=== PATIENT | male | born 1975 | race Hispanic/Latino ===

== ENCOUNTER 2019-04-04 15:07 | Emergency (ER) | payer OTHER ==
[2019-04-04] MEDS ORDERED: NA CHLORIDE 0.9% 1,000 ML ONE ×2 (15:39→15:46)
[2019-04-04] MEDS ORDERED: HYDROMORPHONE HCL 1 MG/ML INJ ONE ×2 (15:39→16:04)
[2019-04-04] MEDS ORDERED: ONDANSETRON 4 MG/2 ML VIAL ONE ×2 (15:39→15:46)
[2019-04-04] MEDS ORDERED: MORPHINE 4 MG/ML SYR ONE (15:46)
[2019-04-04 15:58] LABS: Absolute Lymphocytes (CBC) 2.8 K/uL (0.7-4.9); Basophils % 0.9 % (0-1.3); Hematocrit 41.8 % (39.6-49.0); Lymphocytes % 33.5 % (15.3-44.8); MPV 10.2 fL (7.6-11.3); RBC Red Blood Cell Count 4.73 M/uL (4.33-5.43)
[2019-04-04] MEDS ORDERED: KETOROLAC 30 MG/ML INJ ONE (16:04)
[2019-04-04 16:13] LABS: BUN Blood Urea Nitrogen 12 mg/dL (7-18); Bicarbonate 26 mmol/L (21-32); Glucose Level 120 mg/dL (74-106); Potassium 3.9 mmol/L (3.5-5.1); Sodium Level 140 mmol/L (136-145)
--- NOTE | 2019-04-04 16:58 | RAD REPORT ---
EXAM DESCRIPTION: US - Scrotum Testicles - 04/04/2019 4:34 pm CLINICAL HISTORY: Scrotal pain COMPARISON: None. FINDINGS: No intratesticular mass. Normal blood flow identified in each testicle. No suspicious epid idymis finding. Bilateral hydroceles are present. Small bilateral varicoceles are suspected. No herni a or inguinal abnormality seen. IMPRESSION: Bilateral hydroceles and small varicoceles are suspected. No testicular abnormalities.
--- NOTE | 2019-04-04 17:10 | RAD REPORT ---
EXAM DESCRIPTION: CT - Abdomen Pelvis W Contrast - 04/04/2019 4:52 pm CLINICAL HISTORY: abd pain COMPARISON: CT December 2008, testicular ultrasound same date TECHNIQUE: Biphasic, helical CT imaging of the abdomen and pelvis was performed following 100 ml non -ionic IV contrast. No oral contrast. All CT scans are performed using dose optimization technique as appropriate and may include automated exposure control or mA/KV adjustment according to patient size. FINDINGS: No suspicious findings in the lung bases. Liver is mildly enlarged. No focal liver lesions seen. There is a prominent nodular contour to the li arnel capsule. Contrast opacification pattern was not optimal. Spleen is upper normal in size with no focal abnormality. No pancreatic abnormality. Cholecystectomy clips are present with no biliary tree dilatation. Symmetric renal function is seen with no hydronephrosis or suspicious renal mass. No pyelonephritis o r acute parenchymal process. Urinary bladder is contracted limiting assessment. No prostate abnormali ty seen. No adrenal abnormalities. No dilated bowel loops or bowel wall thickening. No free air, free fluid or inflammatory stranding. No mass or bulky lymphadenopathy. Patient has bilateral fat filled inguinal hernias. No suspicious bony findings. IMPRESSION: Cirrhosis or diffuse hepatic parenchymal disease of the liver new from 2008 comparison. No focal liver lesions identified. Contrast opacification is not optimal. No ascites, lymphadenopathy or other acute abdominal or pelvic finding seen.
[2019-04-04] MEDS ORDERED: MEPERIDINE HCL 50 MG/ML ONE (17:47)
[2019-04-04] MEDS ORDERED: CIPROFLOXACIN HCL 500 MG TAB ONE (17:47)
--- NOTE | 2019-04-04 19:47 | EDPHYS ---
Physician Documentation [facility] Name: Cesar Busby Age: 43 yrs Sex: Male : 1975 Arrival Date: 04/04/2019 Time: 15:11 Bed 6 Private MD: Alvarez Linares ED Physician Alexander Pop HPI: 04/04 16:09 This 43 yrs old Male presents to ER via Ambulatory with complaints of jr8 Testicular Pain. 16:09 Onset: The symptoms/episode began/occurred acutely, 2 week(s) ago. Modifying factors: jr8 The symptoms are alleviated by nothing, the symptoms are aggravated by sexual intercourse. Associated signs and symptoms: Pertinent positives: hematuria, blood in semen and flank pain. Severity of symptoms: At their worst the symptoms were moderate. The patient has not experienced similar symptoms in the past. The patient has not recently seen a physician. Patient stated that he has had on/off flank and testicular pain along with perineal pain for two weeks. Getting worse . Historical: - Allergies: 15:38 No Known Allergies; ss - Home Meds: 15:38 metformin 1,000 mg Oral tab 1 tab 2 times per day [Active]; sertraline 100 mg oral tab ss 1 tab BID [Active]; [place] 10-325 mg Oral tab 1 tab every 4-6 hours [Active]; gabapentin 600 mg oral tab 1 tab 3 times per day [Active]; cyclobenzaprine 10 mg Oral tab 1 tab 3 times per day [Active]; - PMHx: 15:38 Diabetes - IDDM; Bipolar disorder; ss - PSHx: 15:38 Cholecystectomy; ss - Immunization history:: Adult Immunizations up to date. - Social history:: Smoking status: Patient uses tobacco products, denies chronic smoking, but will smoke occasionally. - Ebola Screening: : Patient denies exposure to infectious person Patient denies travel to an Ebola-affected area in the 21 days before illness onset. ROS: 16:09 Eyes: Negative for injury, pain, redness, and discharge, ENT: Negative for injury, jr8 pain, and discharge, Neck: Negative for injury, pain, and swelling, Cardiovascular: Negative for chest pain, palpitations, and edema, Respiratory: Negative for shortness of breath, cough, wheezing, and pleuritic chest pain, MS/Extremity: Negative for injury and deformity, Skin: Negative for injury, rash, and discoloration, Neuro: Negative for headache, weakness, numbness, tingling, and seizure. 16:09 Abdomen/GI: Positive for abdominal pain, nausea, Negative for vomiting, diarrhea, constipation, abdominal cramps. 16:09 Back: Positive for flank pain, on the left. 16:09 : Positive for hematuria, testicular pain Exam: 16:09 Eyes: Pupils equal round and reactive to light, extra-ocular motions intact. Lids and jr8 lashes normal. Conjunctiva and sclera are non-icteric and not injected. Cornea within normal limits. Periorbital areas with no swelling, redness, or edema. ENT: Nares patent. No nasal discharge, no septal abnormalities noted. Tympanic membranes are normal and external auditory canals are clear. Oropharynx with no redness, swelling, or masses, exudates, or evidence of obstruction, uvula midline. Mucous membranes moist. Neck: Trachea midline, no thyromegaly or masses palpated, and no cervical lymphadenopathy. Supple, full range of motion without nuchal rigidity, or vertebral point tenderness. No Meningismus. Cardiovascular: Regular rate and rhythm with a normal S1 and S2. No gallops, murmurs, or rubs. Normal PMI, no JVD. No pulse deficits. Respiratory: Lungs have equal breath sounds bilaterally, clear to auscultation and percussion. No rales, rhonchi or wheezes noted. No increased work of breathing, no retractions or nasal flaring. Back: No spinal tenderness. No costovertebral tenderness. Full range of motion. Skin: Warm, dry with normal turgor. Normal color with no rashes, no lesions, and no evidence of cellulitis. MS/ Extremity: Pulses equal, no cyanosis. Neurovascular intact. Full, normal range of motion. Neuro: Awake and alert, GCS 15, oriented to person, place, time, and situation. Cranial nerves II-XII grossly intact. Motor strength 5/5 in all extremities. Sensory grossly intact. Cerebellar exam normal. Normal gait. 16:09 Abdomen/GI: Inspection: obese Bowel sounds: active, all quadrants, Palpation: abdomen is soft and non-tender, in all quadrants, Rectal exam: Prostate: tender, rectal tone normal, Stool: normal, hemorrhoid(s), are not appreciated, mass, is not appreciated, swelling, is not appreciated, tenderness, is not appreciated, the exam is chaperoned by the nurse, Indicators: McBurney's point is not tender, Vines's sign is negative, Rovsing's sign is negative, Liver: tenderness, is not appreciated. 16:09 : Male external genitalia: tenderness, of the left testicle is noted, that is mild. Vital Signs: 15:38 Resp 23; Weight 177.81 kg; Height 6 ft. 0 in. (182.88 cm); Pain 9/10; ss 17:15 BP 141 / 84; Pulse 71; Resp 17; Pulse Ox 100% on R/A; Pain 7/10; hb 15:38 Body Mass Index 53.16 (177.81 kg, 182.88 cm) ss MDM: 15:23 Patient medically screened. jr8 17:33 Data reviewed: vital signs, nurses notes, lab test result(s), radiologic studies, CT jr8 scan. Data interpreted: Pulse oximetry: on room air is 100 %. Interpretation: normal. Counseling: I had a detailed discussion with the patient and/or guardian regarding: the historical points, exam findings, and any diagnostic results supporting the discharge/admit diagnosis, lab results, radiology results, the need for outpatient follow up, a family practitioner, to return to the emergency department if symptoms worsen or persist or if there are any questions or concerns that arise at home. 04/04 15:32 Order name: IV Saline Lock; Complete Time: 15:37 jr8 04/04 15:32 Order name: Labs collected and sent; Complete Time: 15:37 jr8 Administered Medications: 15:45 Drug: Zofran 4 mg Route: IVP; Site: right antecubital; hb 16:06 Follow up: Response: No adverse reaction hb 15:46 Drug: Dilaudid 1 mg Route: IVP; Site: right antecubital; hb 16:05 Follow up: Response: No adverse reaction; Pain is unchanged, physician notified; RASS: hb Restless (+1) 15:46 Drug: NS 0.9% 1000 ml Route: IV; Rate: 1000 ml; Site: right antecubital; hb 17:41 Follow up: Response: No adverse reaction; IV Status: Completed infusion; IV Intake: hb 1000ml 16:57 Drug: Dilaudid 2 mg Route: IVP; Site: right antecubital; hb 17:30 Follow up: Response: No adverse reaction; Pain is decreased; RASS: Alert and Calm (0) hb 16:57 Drug: TORadol - Ketorolac 15 mg Route: IVP; Site: right antecubital; hb 17:30 Follow up: Response: No adverse reaction; Pain is decreased hb 18:06 Drug: Cipro 500 mg Route: PO; hb 18:06 Follow up: Response: Medication administered at discharge. hb 18:06 Drug: Demerol 50 mg Route: IVP; Site: right antecubital; hb 18:06 Follow up: Response: Medication administered at discharge. hb Disposition: 04/05 07:25 Co-signature as Attending Physician, Alexander Pop MD I agree with the assessment and kdr plan of care. Disposition: 04/04/19 17:34 Discharged to Home. Impression: Acute prostatitis. - Condition is Stable. - Discharge Instructions: Prostatitis. - Prescriptions for Cipro 500 mg Oral Tablet - take 1 tablet by ORAL route every 12 hours for 14 days; 28 tablet. Ibuprofen 800 mg Oral Tablet - take 1 tablet by ORAL route every 12 hours As needed take with food; 20 tablet. Tylenol- Codeine #3 300-30 mg Oral Tablet - take 2 tablets by ORAL route every 6 hours As needed; 20 tablet. - Medication Reconciliation Form, Thank You Letter, Antibiotic Education, Prescription Opioid Use, Work release form form. - Follow up: Alvarez Linares MD; When: 2 - 3 days; Reason: Recheck today's complaints, Continuance of care, Re-evaluation by your physician. - Problem is new. - Symptoms have improved. Signatures: Alexander Pop MD MD [facility] Sury Olson RN RN Deni Huang PA PA jr8 Brooke Griffith RN RN hb Corrections: (The following items were deleted from the chart) 04/04 18:09 17:34 04/04/2019 17:34 Discharged to Home. Impression: Acute prostatitis. Condition is hb Stable. Forms are Medication Reconciliation Form, Thank You Letter, Antibiotic Education, Prescription Opioid Use. Follow up: Alvarez Linares; When: 2 - 3 days; Reason: Recheck today's complaints, Continuance of care, Re-evaluation by your physician. Problem is new. Symptoms have improved. jr8
--- NOTE | 2019-04-04 19:49 | ER ---
Nurse's Notes [facility] Name: Cesar Busby Age: 43 yrs Sex: Male : 1975 Arrival Date: 04/04/2019 Time: 15:11 Bed 6 Private MD: Alvarez Linares Diagnosis: Acute prostatitis Presentation: 04/04 15:34 Presenting complaint: Patient states: pain to L testicle/ perineum that radiates up to ss L lower back x 2-3 weeks. Also reports that semen and urine have blood in it. Transition of care: patient was not received from another setting of care. Onset of symptoms was March 14, 2019. Risk Assessment: Do you want to hurt yourself or someone else? Patient reports no desire to harm self or others. Initial Sepsis Screen: Does the patient have a suspected source of infection? Yes: Other: possible prostatitis. Care prior to arrival: None. 15:34 Method Of Arrival: Ambulatory ss 15:34 Acuity: ALLY 3 ss Historical: - Allergies: 15:38 No Known Allergies; ss - Home Meds: 15:38 metformin 1,000 mg Oral tab 1 tab 2 times per day [Active]; sertraline 100 mg oral tab ss 1 tab BID [Active]; Success 10-325 mg Oral tab 1 tab every 4-6 hours [Active]; gabapentin 600 mg oral tab 1 tab 3 times per day [Active]; cyclobenzaprine 10 mg Oral tab 1 tab 3 times per day [Active]; - PMHx: 15:38 Diabetes - IDDM; Bipolar disorder; ss - PSHx: 15:38 Cholecystectomy; ss - Immunization history:: Adult Immunizations up to date. - Social history:: Smoking status: Patient uses tobacco products, denies chronic smoking, but will smoke occasionally. - Ebola Screening: : Patient denies exposure to infectious person Patient denies travel to an Ebola-affected area in the 21 days before illness onset. Screenin:46 Abuse screen: Denies threats or abuse. Denies injuries from another. Nutritional hb screening: No deficits noted. Tuberculosis screening: No symptoms or risk factors identified. Fall Risk None identified. Assessment: 15:46 General: Appears in no apparent distress. uncomfortable, Behavior is cooperative, hb restless. Pain: Pain currently is 9 out of 10 on a pain scale. Neuro: Level of Consciousness is awake, alert, obeys commands, Oriented to person, place, time, situation. Cardiovascular: Heart tones S1 S2 present Capillary refill < 3 seconds Patient's skin is warm and dry. Respiratory: Airway is patent Respiratory effort is even, unlabored, Respiratory pattern is regular, symmetrical, Breath sounds are clear bilaterally. GI: No signs and/or symptoms were reported involving the gastrointestinal system. : Reports testicular pain that radiates to lower abdomen. EENT: No signs and/or symptoms were reported regarding the EENT system. Derm: Skin is intact, is healthy with good turgor, Skin is pink, warm \T\ dry. Musculoskeletal: No signs and/or symptoms reported regarding the musculoskeletal system. 16:06 Reassessment: Pt restless, moaning, reports pain unchanged. NNAMDI Cheema notified, orders hb given. 16:07 Reassessment: Pt to radiology. hb 16:57 Reassessment: Pt returned from CT, pain medication administered as ordered. VSS. Family hb remains at bedside. 17:25 Reassessment: Patient appears in no apparent distress at this time. Patient and/or hb family updated on plan of care and expected duration. Pain level reassessed. Patient is alert, oriented x 3, equal unlabored respirations, skin warm/dry/pink. Vital Signs: 15:38 Resp 23; Weight 177.81 kg; Height 6 ft. 0 in. (182.88 cm); Pain 9/10; ss 17:15 BP 141 / 84; Pulse 71; Resp 17; Pulse Ox 100% on R/A; Pain 7/10; hb 15:38 Body Mass Index 53.16 (177.81 kg, 182.88 cm) ED Course: 15:11 Patient arrived in ED. mr 15:12 Alvarez Linares MD is Private Physician. mr 15:22 Deni Huang [facility]. jr8 15:23 Alexander Pop MD is Attending Physician. jr8 15:36 Triage completed. ss 15:37 Initial lab(s) drawn, by me, sent to lab. Inserted saline lock: 22 gauge in right jb1 antecubital area, using aseptic technique. Blood collected. 15:38 Arm band placed on right wrist. ss 15:46 Patient has correct armband on for positive identification. Placed in gown. Bed in low hb position. Call light in reach. Side rails up X 1. 15:50 Radiology exam delayed due to lab results not completed at this time. (BUN/Creatinine). sj 15:50 Brooke Griffith, RN is Primary Nurse. hb 17:34 Alvarez Linares MD is Referral Physician. jr8 17:41 Nurse Practitioner and/or Physician Aircraft Technician to see patient. hb 18:06 No provider procedures requiring assistance completed. IV discontinued, intact, hb bleeding controlled, No redness/swelling at site. Pressure dressing applied. Administered Medications: 15:45 Drug: Zofran 4 mg Route: IVP; Site: right antecubital; hb 16:06 Follow up: Response: No adverse reaction hb 15:46 Drug: Dilaudid 1 mg Route: IVP; Site: right antecubital; hb 16:05 Follow up: Response: No adverse reaction; Pain is unchanged, physician notified; RASS: hb Restless (+1) 15:46 Drug: NS 0.9% 1000 ml Route: IV; Rate: 1000 ml; Site: right antecubital; hb 17:41 Follow up: Response: No adverse reaction; IV Status: Completed infusion; IV Intake: hb 1000ml 16:57 Drug: Dilaudid 2 mg Route: IVP; Site: right antecubital; hb 17:30 Follow up: Response: No adverse reaction; Pain is decreased; RASS: Alert and Calm (0) hb 16:57 Drug: TORadol - Ketorolac 15 mg Route: IVP; Site: right antecubital; hb 17:30 Follow up: Response: No adverse reaction; Pain is decreased hb 18:06 Drug: Cipro 500 mg Route: PO; hb 18:06 Follow up: Response: Medication administered at discharge. hb 18:06 Drug: Demerol 50 mg Route: IVP; Site: right antecubital; hb 18:06 Follow up: Response: Medication administered at discharge. hb Intake: 17:41 IV: 1000ml; Total: 1000ml. hb Outcome: 17:34 Discharge ordered by . jr8 18:06 Discharged to home ambulatory, with family. hb 18:06 Condition: stable 18:06 Discharge instructions given to patient, family, Instructed on discharge instructions, follow up and referral plans. medication usage, Demonstrated understanding of instructions, follow-up care, medications, Prescriptions given X 2. 18:09 Patient left the ED. hb Signatures: Kelvin Grimes jb1 Joshua, Hamida mr Felix, Sury John RN RN Deni Huang PA PA jr8 Brooke Griffith RN RN hb Corrections: (The following items were deleted from the chart) 17:26 17:15 BP 141 / 84; Pulse 71bpm; Resp 17bpm; Pulse Ox 95% RA; Pain 7/10; hb hb
== END 2019-04-04 18:09 | disposition home or self-care (01) ==
LOC: ER 15:07
DX: N41.0 Acute prostatitis (principal); E11.9 Type 2 diabetes mellitus without complications; F31.89 Other bipolar disorder
CPT/HCPCS: 96361; 85025; 80048; 36415; 74177; 76870; 96375; 96374; 99284; Q9967; J2175; J1170 ×2; J7030 ×2; J2405 ×2

== ENCOUNTER 2019-04-13 21:51 | Emergency (ER) | payer OTHER ==
--- OUTSIDE RECORDS SUMMARY | 2019-04-13 21:57 | XMS REPORT | Continuity of Care Document ---
:1975 Author Organization [employer] Care Team Providers Name Role Phone [email or web address] Unavailable Unavailable Problems Problem Status Onset Classification Date Comments Source Date Reported Other specified 11/15/2018 [place] diseases of [place] gallbladder GALLBLADDER/SENT Active [place] BY MD 8 [place] ABDOMINAL PAIN Active [place] [facility] [place] ABD PAIN Active [facility] [id number] [facility] PANCREATITIS,HEPA Active [facility] TOSPLENOMEGALY,AB 8 [facility] D PAIN Center Acute abdominal Active Problem 03/24/2019 Medical pain (finding) Group, [place] Diabetes mellitus Active Problem 03/24/2019 Medical (disorder) Group, [place] Morbid obesity Active Problem 03/24/2019 Medical (disorder) Group, [place] Preoperative Active Problem 03/24/2019 Medical state (finding) Group, [place] Morbid (severe) 11/15/2018 [place] obesity due to Land excess calories Obstructive sleep 11/15/2018 [place] apnea (adult) Land (pediatric) Body mass index 11/15/2018 [place] (BMI) 50-59.9 , Land adult Unspecified 11/15/2018 [place] cirrhosis of Land liver Chronic 11/15/2018 [place] cholecystitis Land Type 2 diabetes 11/15/2018 [place] mellitus without Land complications Essential 11/15/2018 [place] (primary) Land hypertension Dehydration 11/15/2018 [place] Hepatomegaly, not 11/15/2018 [place] elsewhere 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 Other chronic 11/15/2018 [place] pain [place] Major depressive 11/15/2018 [place] disorder, single Land episode, unspecified Fatty (change of) 11/15/2018 [place] liver, not Land elsewhere classified Nicotine 11/15/2018 [place] dependence, Land cigarettes, uncomplicated Portal 10/27/2018 [place] hypertension Land Alcoholic 10/27/2018 [place] cirrhosis of [place] liver without ascites Alcohol abuse, 10/27/2018 [place] uncomplicated 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 ACUTE Active [facility] PANCREATITIS Medical WITHOUT NECROSIS Center OR I HEPATOMEGALY WITH Active [facility] SPLENOMEGALY, NOT Medical ELSE Center UNSPECIFIED Active [facility] ABDOMINAL PAIN Medical Center Medications Medication Details Route Status Patient Ordering Order Source Instructions Provider Date NovoLOG FlexPen SUB-Q, Active TID-Before 2019 Medical Meals, 0 Group Refill(s) Acetaminophen 325 1 tab, PO, Q4H, Active MG / Hydrocodone PRN Pain, # 30 2019 Medical Bitartrate 10 MG tab, 0 Refill(s) Group Oral Tablet POLYETHYLENE 17 gm, PO, No Longer [place] GLYCOL 3350 142 Daily, X 15 day, Active 2017 [place] MG/ML Oral # 255 gm, 0 Solution Refill(s), [Miralax] Pharmacy: [facility] Lactulose 667 20 gm, 30 ml, Inactive [place] MG/ML Oral Route: PO, Drug 2017 [facility] Solution form: SYRP, ONCE, Dosing Weight 176, kg, Start date: 04/28/18 13:17:00 CDT, Stop date: 04/28/18 13:17:00 CDTNotes: (Same as:Chronulac) Acetaminophen 325 1 tab, Route: No Longer [place] MG / Hydrocodone PO, Drug Form: Active 2017 [place] Bitartrate 5 MG TAB, Dosing Oral Tablet Weight 176, kg, [[place] 5/325] Q6H, PRN Pain Score 4-6, Start date: 04/27/18 17:54:00 CDT, Duration: 30 day, Stop date: 05/27/18 17:53:00 CDTNotes: (Same as: [place] 325/5) Do not exceed 4gm/day of acetaminophen. Dilaudid 0.5 mg, 0.25 mL, No Longer Sugar Route: IV, Drug Active 2017 [place] form: INJ, Q4H, Dosing Weight 176, kg, PRN Pain Score 6-10, Start date: 04/27/18 14:02:00 CDT, Duration: 30 day, Stop date: 05/27/18 14:01:00 CDTNotes: Same as Dilaudid Lactulose 667 20 gm, 30 mL, Inactive [place] MG/ML Oral Route: PO, Drug 2017 [place] Solution form: SYRP, ONCE, Dosing Weight 176, kg, Start date: 04/27/18 10:29:00 CDT, Stop date: 04/27/18 10:29:00 CDTNotes: (Same as:Chronulac) D5W 1/2NS 1,000 1,000 mL, Rate: No Longer Sugar mL 100 ml/hr, Active 2017 [place] Infuse over: 10 hr, Route: IV, Dosing Weight 176 kg, Total Volume: 1,000, Start date: 04/27/18 7:11:00 CDT, Duration: 30 day, Stop date: 05/27/18 7:10:00 CDT, 3.04, m2 Methocarbamol 500 mg, 1 tab, No Longer Sugar Route: PO, Drug Active 2017 [place] form: TAB, TID, Dosing Weight 176, kg, PRN Muscle Spasms, Start date: 04/27/18 7:10:00 CDT, Duration: 30 day, Stop date: 05/27/18 7:09:00 CDTNotes: (Same as:Robaxin) Hydromorphone 0.5 mg, 0.25 mL, No Longer Sugar Route: IVP, Drug Active 2017 [place] form: INJ, ONCE, Dosing Weight 176, kg, PRN Pain Score 7-10, Priority: NOW, Start date: 04/27/18 0:29:00 CDTNotes: Same as Dilaudid Ketorolac 30 mg, Route: Inactive Sugar IVP, ONCE, 2017 [place] Dosing Weight 176, kg, PRN Pain Score 1-5, Start date: 04/26/18 20:00:00 CDT ondansetron Route: IV, Drug Inactive [place] (ANES) form: INJ, ONCE, 2017 [place] Stop date: 04/26/18 18:13:00 CDT glycopyrrolate Route: IV, Drug Inactive Sugar (ANES) form: INJ, ONCE, 2017 [place] Stop date: 04/26/18 18:13:00 CDT Ephedrine 5 mg, 1 mL, Inactive Sugar Route: IVP, 2017 [place] form: INJ, Q5Min, Dosing Weight 176, kg, PRN Low Blood Pressure, Start date: 04/26/18 18:13:00 CDT, Duration: 30 day, Stop date: 05/26/18 18:12:00 CDTNotes: final concentration 5 mg/mL Albuterol 0.83 2.49 mg, 3 mL, Inactive Sugar MG/ML Inhalant Route: 2017 [place] Solution form: SOLN, Q20Min, Dosing Weight 176, kg, PRN Wheezing, Priority: STAT, Start date: 04/26/18 18:13:00 CDT, Duration: 30 day, Stop date: 05/26/18 18:12:00 CDTNotes: SEE RT DOCUMENTATION (Same as: Proventil) Diphenhydramine 12.5 mg, 0.25 Inactive Sugar mL, Route: IVP2017 Drug form: INJ, Q6H, Dosing Weight 176, kg, PRN Itching, Start date: 04/26/18 18:13:00 CDT, Duration: 30 day, Stop date: 05/26/18 18:12:00 CDTNotes: (Same as: Benadryl) Racepinephrine 11.25 mg, 0.5 Inactive Sugar mL, Route: 2017 Drug Form: SOLN, Dosing Weight 176, kg, PRN, PRN Shortness of breath, Start date: 04/26/18 18:13:00 CDT, Duration: 30 day, Stop date: 05/26/18 18:12:00 CDTNotes: (racepinephrine *2.25% inh 0.5ml SOLN) (Same as:S2) Ondansetron 4 mg, 2 mL, Inactive Sugar Route: IVP, 2017 [place] form: INJ, ONCE, Dosing Weight 176, kg, PRN Nausea & Vomiting, Start date: 04/26/18 18:13:00 CDTNotes: (Same as: Zofran) MEDICATION WASTE Product Size: 4 mg Product Wasted: ___ mg Dexamethasone 4 mg, 1 mL, Inactive Sugar Route: IVP, Drug 2017 [place] form: INJ, ONCE, Dosing Weight 176, kg, PRN Nausea & Vomiting, Start date: 04/26/18 18:13:00 CDTNotes: Concentration: 4mg/ml Promethazine 6.25 mg, 0.25 Inactive Sugar mL, Route: IM, 2017 Drug form: INJ, ONCE, Dosing Weight 176, kg, PRN Nausea & Vomiting, Start date: 04/26/18 18:13:00 CDTNotes: Do not give IV push. (Same as: Phenergan) Glycopyrrolate 0.2 mg, 1 mL, Inactive Sugar Route: IVP, Drug 2017 [place] form: INJ, Q5Min, Dosing Weight 176, kg, PRN Bradycardia, Start date: 04/26/18 18:13:00 CDT, Duration: 3 doses or times, Stop date: Limited # of timesNotes: (Same as: Haris) Meperidine 12.5 mg, 0.25 Inactive Sugar mL, Route: IVP, 2017 Drug form: INJ, Q30Min, Dosing Weight 176, kg, PRN Other -See Comment, For shivering, Start date: 04/26/18 18:13:00 CDT, Duration: 2 doses or times, Stop date: Limited # of timesNotes: (Same as: Demerol) "Use Precaution in Elderly, Seizure disorders, and Renal impairment" Naloxone 0.4 mg, 1 mL, Inactive Sugar Route: IVP, Drug 2017 [place] form: INJ, Q2MIN, Dosing Weight 176, kg, PRN Narcotic Reversal, Start date: 04/26/18 18:13:00 CDT, Duration: 8 doses or times, Stop date: Limited # of timesNotes: Same as Narcan Hydromorphone 0.5 mg, 0.25 mL, Inactive Sugar Route: IVP, Drug 2017 [place] form: INJ, Q5Min, Dosing Weight 176, kg, PRN Pain Score 7-10, Start date: 04/26/18 18:13:00 CDT, Duration: 4 doses or times, Stop date: Limited # of timesNotes: Same as Dilaudid Fentanyl 25 microgram, Inactive Sugar 0.5 mL, Route: 2018 [place] IVP, Drug form: INJ, Q5Min, Dosing Weight 176, kg, PRN Pain Score 4-6, Priority: Routine, Start date: 04/26/18 18:13:00 CDT, Duration: 4 doses or times, Stop date: Limited # of timesNotes: (Same as: Sublimaze) Preservative free. Lorazepam 0.5 mg, 0.25 mL, Inactive Sugar Route: IVP, Drug 2017 [place] form: INJ, Q20Min, Dosing Weight 176, kg, PRN Anxiety, Start date: 04/26/18 18:13:00 CDT, Duration: 3 doses or times, Stop date: Limited # of timesNotes: (Same as: Ativan) Acetaminophen 1,000 mg, 2 tab, Inactive Sugar Route: PO, Drug 2017 [place] form: TAB, ONCE, Dosing Weight 176, kg, PRN Pain Score 1-3, Start date: 04/26/18 18:13:00 CDTNotes: Max acetaminophen 4000 mg/day (4 gm/day). (Same as: Tylenol Extra Strength) Hydralazine 10 mg, 0.5 mL, Inactive Sugar Route: IVP, Drug 2017 [place] form: INJ, Q20Min, Dosing Weight 176, kg, PRN Elevated BP, Start date: 04/26/18 18:13:00 CDT, Duration: 2 doses or times, Stop date: Limited # of timesNotes: (Same as: Apresoline) Push over 5 minutes neostigmine Route: IV, Drug Inactive [place] (ANES) form: INJ, ONCE, 2017 Stop date: 04/26/18 18:13:00 CDT Acetazolamide 250 mg, Route: Inactive Sugar IVP, ONCE, 2017 Dosing Weight 176, kg, Start date: 04/26/18 18:08:00 CDT, Stop date: 04/26/18 18:08:00 CDT tramadol 50 mg, 1 tab, No Longer Sugar hydrochloride 50 Route: PO, Drug Active 2017 [place] MG Oral Tablet form: TAB, Q4H, Dosing Weight 176, kg, PRN Pain Score 1-5, Start date: 04/26/18 18:07:00 CDT, Duration: 30 day, Stop date: 05/26/18 18:06:00 CDTNotes: Not to exceed 400mg/day. (Same As: Ultram) succinylcholine Route: IV, Drug Inactive [place] (ANES) form: INJ, ONCE, 2017 [place] Stop date: 04/26/18 17:14:00 CDT lidocaine (ANES) Route: IV, Drug Inactive Sugar form: INJ, ONCE, 2017 [place] Stop date: 04/26/18 17:14:00 CDT propofol (ANES) Route: IV, Drug Inactive Sugar form: INJ, ONCE, 2017 [place] Stop date: 04/26/18 17:14:00 CDT midazolam (ANES) Route: IV, Drug Inactive Sugar form: SOLN, 2017 ONCE, Stop date: 04/26/18 17:14:00 CDT dexamethasone Route: IV, Drug Inactive Sugar (ANES) form: INJ, ONCE, 2017 [place] Stop date: 04/26/18 17:14:00 CDT fentaNYL (ANES) Route: IV, Drug Inactive Sugar form: INJ, ONCE, 2017 [place] Stop date: 04/26/18 17:14:00 CDT ceFAZolin (ANES) Route: IV, Drug Inactive Sugar form: INJ, ONCE, 2017 [place] Stop date: 04/26/18 17:14:00 CDT rocuronium (ANES) Route: IV, Drug Inactive Sugar form: INJ, ONCE, 2017 [place] Stop date: 04/26/18 17:04:00 CDT Lactated Ringers Route: IV, Total Inactive Sugar Injection IV Volume: 1,000, 2017 [place] (ANES) 1000 mL Start date: 04/26/18 16:13:00 CDT, Stop date: 04/26/18 17:13:00 CDT Cefazolin 2 gm, Route: No Longer Sugar IVSCOTTY LAST, Active 2017 [facility] Dosing Weight 176, kg, Start date: 04/26/18 10:00:00 CDT, Duration: 1 doses or times, ABX Indication: Surgical ProphylaxisNotes : (Same As: Marie Donahue) MEDICATION WASTE Product Size: 1000 mg Product Wasted: ___ mg Dilaudid 0.5 mg, 0.25 mL, No Longer Sugar Route: IVP, Drug Active 2017 [place] form: INJ, Q2H, Dosing Weight 176, kg, PRN Pain Score 6-10, Start date: 04/26/18 8:57:00 CDT, Duration: 30 day, Stop date: 05/26/18 8:56:00 CDTNotes: Same as Dilaudid Dilaudid 0.5 mg, 0.25 mL, Inactive Sugar Route: IVP, Drug 2017 [place] form: INJ, Q4H, Dosing Weight 176, kg, PRN Pain Score 6-10, Priority: STAT, Start date: 04/26/18 3:02:00 CDT, Duration: 30 day, Stop date: 05/26/18 3:01:00 CDTNotes: Same as Dilaudid Dilaudid 0.5 mg, 0.25 mL, Inactive Sugar Route: IVP, Drug 2017 [place] form: INJ, ONCE, Dosing Weight 176, kg, Priority: NOW, Start date: 04/26/18 1:21:00 CDT, Stop date: 04/26/18 1:21:00 CDTNotes: Same as Dilaudid heparin 5,000 unit, 1 No Longer Sugar mL, Route: Active 2018 [place] SUB-Q, Drug form: INJ, Q8H, Dosing Weight 176.818, kg, Start date: 04/26/18 0:00:00 CDT, Duration: 30 day, Stop date: 05/25/18 16:00:00 CDTNotes: porcine heparin Morphine 2 mg, 1 mL, Inactive Sugar Route: IVP, Drug 2017 [place] form: SOLN, ONCE, Dosing Weight 176, kg, Priority: NOW, Start date: 04/25/18 22:45:00 CDT, Stop date: 04/25/18 22:45:00 CDT Acetaminophen 325 1 tab, Route: Inactive Sugar MG / Hydrocodone PO, Drug Form: 2018 [place] Bitartrate 10 MG TAB, Dosing Oral Tablet Weight 176, kg, [[place] 10/325] ONCE, Start date: 04/25/18 21:16:00 CDT, Stop date: 04/25/18 21:16:00 CDTNotes: Do not exceed 4gm/day of acetaminophen. (Same as: [place] 325/10) Insulin Lispro 8 unit, 0.08 mL, No Longer Sugar Route: SUB-Q, Active 2017 [place] Drug form: SOLN, TID-Before Meals, Dosing Weight 176, kg, PRN Blood Glucose Results, Start date: 04/25/18 21:15:00 CDT, Duration: 30 day, Stop date: 05/25/18 21:14:00 CDTNotes: (Same as: Humalog ) Roll in palms of hands gently; Do not shake `vigorously. "Single Patient Use Only " WASTE: F/P - Black; E - Municipal Trash Bin Stable for 28 days at room temperature. Expires in days from Da te Dextrose 50% 25 gm, 50 mL, No Longer Sugar Syringe Route: IVP, Drug Active 2017 [place] Form: INJ, Dosing Weight 176, kg, PRN, PRN Blood Glucose Results, Start date: 04/25/18 21:15:00 CDT, Duration: 30 day, Stop date: 05/25/18 21:14:00 CDT Glucagon 1 mg, Route: IM, No Longer Sugar Drug form: Active 2018 [place] PDR/INJ, PRN, Dosing Weight 176, kg, PRN Blood Glucose Results, Start date: 04/25/18 21:15:00 CDT, Duration: 30 day, Stop date: 05/25/18 21:14:00 CDT Zofran 4 mg, 2 mL, No Longer Sugar Route: IV, Drug Active 2017 [place] form: INJ, Q6H, Dosing Weight 176.818, kg, PRN as needed for nausea/vomiting, Start date: 04/25/18 17:13:00 CDT, Duration: 30 day, Stop date: 05/25/18 17:12:00 CDTNotes: (Same as: Zofran) MEDICATION WASTE Product Size: 4 mg Product Wasted: ___ mg Morphine 2 mg, 1 mL, No Longer Sugar Route: IV, Drug Active 2017 [place] form: SOLN, Q6H, Dosing Weight 176.818, kg, PRN Pain Score 6-10, Start date: 04/25/18 17:10:00 CDT, Duration: 30 day, Stop date: 05/25/18 17:09:00 CDT D5W 1/2NS 1,000 1,000 mL, Rate: No Longer Sugar mL 150 ml/hr, Active 2018 [place] Infuse over: 6.7 hr, Route: IV, Dosing Weight 176 kg, Total Volume: 1,000, Start date: 04/25/18 17:10:00 CDT, Duration: 30 day, Stop date: 05/25/18 17:10:00 CDT, 3.04, m2 lidocaine 2% 100 mg, 5 mL, Inactive Sugar Route: IV, Drug 2017 [place] Form: INJ, Dosing Weight 176.818, kg, ONCE, Start date: 04/25/18 15:47:00 CDT, Stop date: 04/25/18 15:47:00 CDTNotes: Syringe (Same as: Xylocaine) ketOROLAC 30 30 mg, 1 mL, Inactive Sugar mg/mL injectable Route: IVP, Drug 2017 [place] solution form: INJ, ONCE, Dosing Weight 176.818, kg, Priority: STAT, Start date: 04/25/18 14:21:00 CDT, Stop date: 04/25/18 14:21:00 CDTNotes: (Same as:Toradol) IV bolus must be given >15 seconds. Give IM administration slowly and deeply into the muscle. Not for use > 4 days MEDICATION WASTE Product Size: 30 mg Product Wasted: _0__ mg Dilaudid 1 mg, 0.5 mL, Inactive Sugar Route: IM, Drug 2017 [place] form: INJ, ONCE, Dosing Weight 176.818, kg, Priority: STAT, Start date: 04/25/18 12:55:00 CDT, Stop date: 04/25/18 12:55:00 CDTNotes: Same as Dilaudid Fentanyl 50 microgram, Inactive Sugar Route: IVP, 2018 [place] ONCE, Dosing Weight 176.818, kg, Priority: STAT, Start date: 04/25/18 12:33:00 CDT, Stop date: 04/25/18 12:33:00 CDT Morphine 4 mg, 1 mL, Inactive Sugar Route: IVP, Drug 2017 [place] form: SOLN, ONCE, Dosing Weight 176.818, kg, Priority: STAT, Start date: 04/25/18 11:37:00 CDT, Stop date: 04/25/18 11:37:00 CDTNotes: (Same as:MORPhine Sulfate) Zofran 4 mg, 2 mL, Inactive Sugar Route: IVP, Drug 2017 [place] form: INJ, ONCE, Dosing Weight 176.818, kg, Priority: STAT, Start date: 04/25/18 11:37:00 CDT, Stop date: 04/25/18 11:37:00 CDTNotes: (Same as: Zofran) MEDICATION WASTE Product Size: 4 mg Product Wasted: __0_ mg NS (Bolus) IV 1,000 mL, 1,000 Inactive Sugar ml/hr, Infuse 2017 [place] Over: 1 hr, Route: IV, 1,000, Drug form: INJ, ONCE, Priority: STAT, Dosing Weight 176.818 kg, Start date: 04/25/18 11:37:00 CDT, Stop date: 04/25/18 11:37:00 CDT gabapentin 100 MG 100 mg, 1 cap, Inactive Sugar Oral Capsule Route: PO, Drug 2017 [place] form: CAP, Q2PM, Dosing Weight 184.091, kg, Start date: 04/09/18 14:00:00 CDT, Duration: 30 day, Stop date: 05/08/18 14:00:00 CDTNotes: (Same as: Neurontin) Reglan 10 mg, 2 tab, Inactive Sugar Route: PO, Drug 2017 [place] form: TAB, Q6H, Start date: 04/09/18 12:00:00 CDT, Stop date: 04/11/18 12:00:00 CDTNotes: (Same as: Reglan) Take 30 min before meals Metoclopramide 10 10 mg=1 tab, PO, No Longer Sugar MG Oral Tablet Q6H, PRN as Active 2017 [place] needed for nausea, X 14 day, # 30 tab, 0 Refill(s), Pharmacy: [facility] gabapentin 300 MG 300 mg=1 cap, Active Sugar Oral Capsule PO, TID, # 90 2018 [place] cap, 0 Refill(s), Pharmacy: [facility] Miralax 17 gm, Route: Inactive Sugar PO, Daily, 2018 Dosing Weight 184.091, kg, Start date: 04/09/18 9:00:00 CDT, Duration: 30 day, Stop date: 05/08/18 9:00:00 CDT Lactulose 667 20 gm, 30 mL, Inactive Sugar MG/ML Oral Route: PO, Drug 2017 [place] Solution form: SYRP, ONCE, Dosing Weight 184.091, kg, Start date: 04/09/18 7:38:00 CDT, Stop date: 04/09/18 7:38:00 CDTNotes: (Same as:Chronulac) gabapentin 300 MG 300 mg, 1 cap, No Longer Sugar Oral Capsule Route: PO, Drug Active 2017 [place] form: CAP, Q12H, Dosing Weight 184.091, kg, (CrCl 30 - 59 ml/min), Start date: 04/08/18 22:00:00 CDT, Duration: 30 day, Stop date: 05/08/18 21:00:00 CDTNotes: (Same as: Neurontin) gabapentin 100 MG 100 mg, 1 cap, Inactive Sugar Oral Capsule Route: PO, Drug 2017 [place] form: CAP, Q8H, Dosing Weight 184.091, kg, Start date: 04/08/18 16:00:00 CDT, Duration: 30 day, Stop date: 05/08/18 8:00:00 CDTNotes: (Same as: Neurontin) Reglan 10 mg, 2 mL, No Longer Sugar Route: IVP, Drug Active 2017 [place] form: INJ, Q6H, Dosing Weight 184.091, kg, Start date: 04/08/18 12:00:00 CDT, Duration: 3 day, Stop date: 04/11/18 6:00:00 CDTNotes: (Same as: Reglan) Morphine 6 mg, 1.5 mL, No Longer Sugar Route: IVP, Drug Active 2017 [place] form: SOLN, Q4H, Dosing Weight 184.091, kg, PRN Pain Score 7-10, Start date: 04/08/18 10:30:00 CDT, Duration: 30 day, Stop date: 05/08/18 10:29:00 CDTNotes: (Same as:MORPhine Sulfate) Oxycodone 10 mg, 2 tab, No Longer Sugar Hydrochloride 5 Route: PO, Drug Active 2017 [place] MG Oral Tablet form: TAB, Q4H, Dosing Weight 184.091, kg, PRN Pain Score 4-6, Start date: 04/08/18 10:30:00 CDT, Duration: 30 day, Stop date: 05/08/18 10:29:00 CDTNotes: (Same as: Roxicodone) lidocaine (ANES) Route: IV, Drug Inactive Sugar form: INJ, ONCE, 2017 [place] Stop date: 04/08/18 9:14:00 CDT fentaNYL (ANES) Route: IV, Drug Inactive Sugar form: INJ, ONCE, 2017 Land Stop date: 04/08/18 9:14:00 CDT Miralax 17 gm, 1 pkt, No Longer Sugar Route: PO, Drug Active 2017 [place] form: PWDR, Daily, Dosing Weight 184.091, kg, Start date: 04/08/18 9:00:00 CDT, Duration: 30 day, Stop date: 05/07/18 9:00:00 CDTNotes: Dissolve in 8 oz of water or juice. (Same as: Miralax) Sertraline 150 mg, 3 tab, No Longer Sugar Route: PO, Drug Active 2017 [place] form: TAB, Daily, Dosing Weight 184.091, kg, Start date: 04/08/18 9:00:00 CDT, Duration: 30 day, Stop date: 05/07/18 9:00:00 CDTNotes: (Same as: Zoloft) propofol (ANES) Route: IV, Drug Inactive Sugar 10 mg form: INJ, Start 2017 [place] date: 04/08/18 8:59:00 CDT, Stop date: 04/08/18 9:59:00 CDT Lactated Ringers Route: IV, Total Inactive Sugar Injection IV Volume: 1,000, 2018 [place] (ANES) 1000 mL Start date: 04/08/18 8:55:00 CDT, Stop date: 04/08/18 9:55:00 CDT Docusate Sodium 1 tab, Route: No Longer Sugar 50 MG / PO, Drug Form: Active 2017 [place] sennosides, RESIDENTIAL TAB, Dosing 8.6 MG Oral Weight 184.091, Tablet kg, Bedtime, [SENOKOT-S] Start date: 04/07/18 22:00:00 CDT, Duration: 30 day, Stop date: 05/07/18 21:00:00 CDTNotes: (Same as Senokot-S) Equiv. to Sabiha-Colace. Dulcolax Laxative 10 mg, 2 tab, No Longer Sugar Route: PO, Drug Active 2017 [place] form: ECTAB, Daily, Dosing Weight 184.091, kg, PRN Constipation, Start date: 04/07/18 21:54:00 CDT, Duration: 30 day, Stop date: 05/07/18 21:53:00 CDTNotes: (Same As: Dulcolax, Correctol) (Do Not Crush) "Do Not Crush" gabapentin 200 mg, 2 cap, No Longer Sugar Route: PO, Drug Active 2017 [place] form: CAP, BID, Dosing Weight 184.091, kg, Start date: 04/07/18 21:00:00 CDT, Duration: 30 day, Stop date: 05/07/18 9:00:00 CDTNotes: (Same as: Neurontin) Protonix 40 mg, 1 tab, No Longer Sugar Route: PO, Drug Active 2017 [place] form: ECTAB, Before Dinner, Dosing Weight 184.091, kg, Start date: 04/07/18 16:30:00 CDT, Duration: 30 day, Stop date: 05/06/18 16:30:00 CDTNotes: Tablet should not be chewed or crushed. (Same as: Protonix) GI cocktail 30 ml, Route: Inactive Sugar (aluminum PO, Drug Form: 2017 [place] hydroxide/magnesi SUSP, Dosing um Weight 184.091, hydroxide/lidocai kg, ONCE, ne/simethicone) Routine, Start date: 04/07/18 11:49:00 CDT, Stop date: 04/07/18 11:49:00 CDTNotes: G.I. Cocktail - aluminum hydroxide/magnes ium hydroxide/lidoca ine/simethicone Sodium Chloride 1,000 mL, Rate: No Longer Sugar 0.9% IV 1,000 mL 150 ml/hr, Active 2017 [place] Infuse over: 6.7 hr, Route: IV, Dosing Weight 184.091 kg, Total Volume: 1,000, Start date: 04/07/18 11:15:00 CDT, Duration: 30 day, Stop date: 05/07/18 11:14:00 CDT, 3.11, m2 Morphine 4 mg, 1 mL, No Longer Sugar Route: IVP, Drug Active 2017 [place] form: SOLN, Q4H, Dosing Weight 184.091, kg, PRN Pain Score 7-10, Start date: 04/07/18 10:38:00 CDT, Duration: 30 day, Stop date: 05/07/18 10:37:00 CDTNotes: (Same as:MORPhine Sulfate) Oxycodone 5 mg, 1 tab, No Longer Sugar Hydrochloride 5 Route: PO, Drug Active 2017 [place] MG Oral Tablet form: TAB, Q4H, Dosing Weight 184.091, kg, PRN Pain Score 4-6, Start date: 04/07/18 10:38:00 CDT, Duration: 30 day, Stop date: 05/07/18 10:37:00 CDTNotes: (Same as: Roxicodone) Insulin Lispro 10 unit, 0.1 mL, No Longer Sugar Route: SUB-Q, Active 2017 Drug form: SOLN, TID-Before Meals, Dosing Weight 184.091, kg, PRN Blood Glucose Results, Start date: 04/07/18 9:09:00 CDT, Duration: 30 day, Stop date: 05/07/18 9:08:00 CDTNotes: (Same as: Humalog ) Roll in palms of hands gently; Do not shake `vigorously. "Single Patient Use Only " WASTE: F/P - Black; E - Municipal Trash Bin Stable for 28 days at room temperature. Expires in days from Da te Glucagon 1 mg, Route: IM, No Longer Sugar Drug form: Active 2017 [place] PDR/INJ, PRN, Dosing Weight 184.091, kg, PRN Blood Glucose Results, Start date: 04/07/18 9:09:00 CDT, Duration: 30 day, Stop date: 05/07/18 9:08:00 CDT Dextrose 50% 12.5 gm, 25 mL, No Longer Sugar Syringe Route: IVP, Drug Active 2017 [place] Form: INJ, Dosing Weight 184.091, kg, PRN, PRN Blood Glucose Results, Start date: 04/07/18 9:09:00 CDT, Duration: 30 day, Stop date: 05/07/18 9:08:00 CDT Carafate 1 gm, 1 tab, No Longer Sugar Route: PO, Drug Active 2017 [place] form: TAB, QID, Dosing Weight 184.091, kg, Start date: 04/06/18 21:00:00 CDT, Duration: 30 day, Stop date: 05/06/18 17:00:00 CDTNotes: May interfere w/enteral feeds - Take 1 hr before or 2 hr after antacids, dairy pdt, meals & minerals - On empty stomach. For patients unable to swallow tablet, dissolve in 10mL - 30mL of water or juice and stir before giving. (Same As: Carafate) Acetaminophen 325 2 tab, Route: No Longer Sugar MG / Hydrocodone PO, Drug Form: Active 2018 [place] Bitartrate 5 MG TAB, Dosing Oral Tablet Weight 184.091, [[place] 5/325] kg, Q4H, PRN Pain Score 4-6, Start date: 04/06/18 18:02:00 CDT, Duration: 30 day, Stop date: 05/06/18 18:01:00 CDTNotes: (Same as: [place] 325/5) Do not exceed 4gm/day of acetaminophen. Hydromorphone 1 mg, 0.5 mL, No Longer Sugar Route: IM, Drug Active 2017 [place] form: INJ, Q4H, Dosing Weight 184.091, kg, PRN Pain Score 7-10, Start date: 04/06/18 18:00:00 CDT, Duration: 30 day, Stop date: 05/06/18 17:59:00 CDTNotes: Same as Dilaudid Saline Flush 0.9% 10 ml, Route: No Longer Sugar IVP, Drug Form: Active 2017 [place] INJ, Dosing Weight 188.636, kg, PRN, PRN Line Flush, Start date: 04/06/18 16:56:00 CDT, Duration: 30 day, Stop date: 05/06/18 16:55:00 CDTNotes: (Same as: BD Posiflush) Sodium Chloride 1,000 mL, Rate: No Longer Sugar 0.9% IV 1,000 mL 100 ml/hr, Active 2017 [place] Infuse over: 10 hr, Route: IV, Dosing Weight 188.636 kg, Total Volume: 1,000, Start date: 04/06/18 16:56:00 CDT, Duration: 30 day, Stop date: 05/06/18 16:55:00 CDT, 3.15, m2 Ondansetron 4 mg, 2 mL, No Longer Sugar Route: IVP, Drug Active 2018 [place] form: INJ, Q6H, Dosing Weight 188.636, kg, PRN Nausea & Vomiting, Start date: 04/06/18 16:56:00 CDT, Duration: 30 day, Stop date: 05/06/18 16:55:00 CDTNotes: (Same as: Zofran) MEDICATION WASTE Product Size: 4 mg Product Wasted: ___ mg Morphine 2 mg, 1 mL, Inactive [place] Route: IVP, Drug 2018 [place] form: SOLN, Q4H, Dosing Weight 188.636, kg, PRN Pain Score 7-10, Start date: 04/06/18 16:56:00 CDT, Duration: 30 day, Stop date: 05/06/18 16:55:00 CDT Acetaminophen 325 1 tab, Route: No Longer [facility] MG / Hydrocodone PO, Drug Form: Active 2018 [place] Bitartrate 5 MG TAB, Dosing Oral Tablet Weight 188.636, kg, Q4H, PRN Pain Score 4-6, Start date: 04/06/18 16:56:00 CDT, Duration: 30 day, Stop date: 05/06/18 16:55:00 CDTNotes: (Same as: [place] 325/5) Do not exceed 4gm/day of acetaminophen. Acetaminophen 650 mg, 2 tab, No Longer [place] Route: PO, Drug Active 2018 [place] form: TAB, Q4H, Dosing Weight 188.636, kg, PRN Pain 1-3/Temp > 100.4 F, Start date: 04/06/18 16:56:00 CDT, Duration: 30 day, Stop date: 05/06/18 16:55:00 CDTNotes: Do not exceed 4 gm/day. (Same as: Tylenol) Morphine 4 mg, 1 mL, Inactive [place] Route: IVP, Drug 2018 [place] form: SOLN, ONCE, Dosing Weight 188.636, kg, Priority: STAT, Start date: 04/06/18 14:52:00 CDT, Stop date: 04/06/18 14:52:00 CDTNotes: (Same as:MORPhine Sulfate) Acetaminophen 325 2 tab, PO, TID, No Longer [facility] MG / Hydrocodone PRN for pain, 0 Active 2018 [place] Bitartrate 10 MG Refill(s) Oral Tablet [[place] 10/325] Omnipaque 300 100 mL, Route: Inactive [facility] injectable IVP, Drug Form: 2018 [place] solution SOLN, Dosing Weight 188.636, kg, ONCALL, GFR > 45 mL/min, STAT, Start date: 04/06/18 13:07:00 CDT, Duration: 1 doses or timesNotes: (Same as:Omnipaque 300). WASTE: F/P - Black; E - [facility] Trash [facility] Morphine 4 mg, Route: Inactive [place] IVP, ONCE, 2018 Land Dosing Weight 188.636, kg, Priority: STAT, Start date: 04/06/18 13:04:00 CDT, Stop date: 04/06/18 13:04:00 CDT Morphine 4 mg, Route: Inactive [place] IVP, ONCE, 2018 Land Dosing Weight 188.636, kg, Priority: STAT, Start date: 04/06/18 12:37:00 CDT, Stop date: 04/06/18 12:37:00 CDT Saline Flush 0.9% 10 mL, Route: No Longer [facility] IVP, Drug Form: Active 2018 Land INJ, Dosing Weight 188.636, kg, PRN, PRN Line Flush, Start date: 04/06/18 12:01:00 CDT, Duration: 30 day, Stop date: 05/06/18 12:00:00 CDTNotes: (Same as: BD Posiflush) tramadol 100 mg=2 tab, Active [place] hydrochloride 50 PO, Q6H, PRN 2018 Medical MG Oral Tablet Pain Score 6-10, Center not to exceed 400 mg/day, X 5 day, # 40 tab, 0 Refill(s) tramadol 100 mg=2 tab, Inactive [place] hydrochloride 50 PO, Q6H, PRN 2018 Medical MG Oral Tablet Pain Score 6-10, Center not to exceed 400 mg/day, # 40 tab, 0 Refill(s) multivitamin 1 tab, Route: Inactive [place] PO, Drug Form: 2018 Medical TAB, Dosing Center Weight 186.364, kg, Daily, Start date: 02/12/18 9:00:00 CDT, Duration: 5 day, Stop date: 02/16/18 9:00:00 CDTNotes: (Same as:Thera) WASTE: F/P - Black; E - [employer] Trash [facility] Take with food. Sertraline 150 mg, 3 tab, Inactive [place] Route: PO, Drug 2018 Medical form: TAB, Center Daily, Dosing Weight 190, kg, Start date: 02/12/18 9:00:00 CDT, Duration: 30 day, Stop date: 03/13/18 9:00:00 CDTNotes: (Same as: Zoloft) gabapentin 200 mg, 2 cap, No Longer [facility] Route: PO, Drug Active 2017 Medical form: CAP, BID, Center Dosing Weight 190, kg, Start date: 02/11/18 17:00:00 CDT, Duration: 30 day, Stop date: 03/13/18 9:00:00 CDTNotes: (Same as: Neurontin) Lovenox 40 mg, 0.4 mL, No Longer [facility] Route: SUB-Q, Active 2017 Medical Drug form: INJ, Center [id number], Dosing Weight 186.364, kg, Start date: 02/11/18 16:00:00 CDT, Duration: 30 day, Stop date: 03/13/18 4:00:00 CDTNotes: (Same as: Lovenox) Acetaminophen 325 1 tab, Route: No Longer [facility] MG / Hydrocodone PO, Drug Form: Active 2018 Medical Bitartrate 10 MG TAB, Dosing Center Oral Tablet Weight 190, kg, [[place] 10/325] Q4H, PRN Pain Score 6-10, Start date: 02/11/18 15:45:00 CDT, Duration: 30 day, Stop date: 03/13/18 15:44:00 CDTNotes: Do not exceed 4gm/day of acetaminophen. (Same as: [place] 325/10) Flexeril 10 mg, 1 tab, No Longer [facility] Route: PO, Drug Active 2018 Medical form: TAB, Q12H, Center Dosing Weight 190, kg, PRN as needed for muscle spasm, Start date: 02/11/18 15:21:00 CDT, Duration: 30 day, Stop date: 03/13/18 15:20:00 CDTNotes: (Same As: Flexeril) Lovenox 40 mg, 0.4 mL, Inactive [place] Route: SUB-Q, 2018 Medical Drug form: INJ, Center [id number], Dosing Weight 186.364, kg, Start date: 02/11/18 15:00:00 CDT, Duration: 30 day, Stop date: 03/12/18 15:00:00 CDTNotes: (Same as: Lovenox) Lorazepam 2 mg, 1 mL, No Longer [facility] Route: IVP, Drug Active 2017 Medical form: INJ, Q2H, Center Dosing Weight 186.364, kg, PRN Withdrawal, Start date: 02/11/18 14:03:00 CDT, Duration: 30 day, Stop date: 03/13/18 14:02:00 CDTNotes: (Same as: Ativan) NovoLog 4 unit, SUB-Q, Active [facility] TID-Before 2018 Medical Meals, 0 Center Refill(s) Levemir 10 unit, SUB-Q, Active [facility] 0 Refill(s) 2018 Medical Center Sertraline 150 mg, PO, Active [facility] Daily, 0 2018 Medical Refill(s) Center Metformin 1,000 mg, PO, Active [facility] Daily, 0 2017 Medical Refill(s) Center Flexeril 10 mg, PO, BID, Active [facility] PRN Muscle 2018 Medical Spasm, # 30 tab, Center 0 Refill(s) gabapentin 200 mg, PO, BID, Active [facility] 0 Refill(s) 2018 Medical Center Morphine 2 mg, 0.5 mL, No Longer [facility] Route: IV, Drug Active 2017 Medical form: SOLN, Q4H, Center Dosing Weight 186.364, kg, PRN Pain Score 7-10, Start date: 02/11/18 13:35:00 CDT, Duration: 30 day, Stop date: 03/13/18 13:34:00 CDTNotes: (Same as:MORPhine Sulfate) Ondansetron 4 mg, 2 mL, No Longer [facility] Route: IVP, Drug Active 2017 Medical form: INJ, ONCE, Center Dosing Weight 186.364, kg, PRN Nausea & Vomiting, Start date: 02/11/18 12:18:00 CDTNotes: (Same as: Zofran) MEDICATION WASTE Product Size: 4 mg Product Wasted: ___ mg Hydromorphone 0.2 mg, 0.1 mL, Inactive [facility] Route: IVP, Drug 2018 Medical form: INJ, Q4H, Center Dosing Weight 186.364, kg, PRN Pain Score 7-10, Start date: 02/11/18 12:18:00 CDT, Duration: 30 day, Stop date: 03/13/18 12:17:00 CDTNotes: Same as Dilaudid Tramadol 50 mg, 1 tab, No Longer [place] Route: PO, Drug Active 2018 Medical form: TAB, Q6H, Center Dosing Weight 186.364, kg, PRN Pain Score 6-10, Start date: 02/11/18 12:18:00 CDT, Stop date: 03/13/18 12:17:00 CDTNotes: Not to exceed 400mg/day. (Same As: Ultram) Acetaminophen 325 2 tab, Route: Inactive [place] MG / Hydrocodone PO, Drug Form: 2018 Medical Bitartrate 5 MG TAB, Dosing Center Oral Tablet Weight 186.364, kg, Q4H, PRN Pain Score 4-6, Start date: 02/11/18 12:18:00 CDT, Duration: 30 day, Stop date: 03/13/18 12:17:00 CDTNotes: (Same as: [place] 325/5) Do not exceed 4gm/day of acetaminophen. Lactated Ringers 1,000 mL, Rate: No Longer [place] IV 1,000 mL 125 ml/hr, Active 2017 Medical Infuse over: 8 Center hr, Route: IV, Dosing Weight 186.364 kg, Total Volume: 1,000, Start date: 02/11/18 12:18:00 CDT, Duration: 30 day, Stop date: 03/13/18 12:17:00 CDT, 3.13, m2 Dilaudid 1 mg, Route: Inactive [facility] IVP, ONCE, 2018 Medical Dosing Weight Center 186.364, kg, Priority: STAT, Start date: 02/11/18 9:51:00 CDT, Stop date: 02/11/18 9:51:00 CDT Calcium Chloride 1,000 mL, 1,000 Inactive [facility] 0.0014 MEQ/ML / ml/hr, Infuse 2018 Medical Potassium Over: 1 hr, Center Chloride 0.004 Route: IV, ONCE, MEQ/ML / Sodium Priority: STAT, Chloride 0.103 Dosing Weight MEQ/ML / Sodium 186.364 kg, Lactate 0.028 Start date: MEQ/ML Injectable 02/11/18 9:31:00 Solution CDT, Stop date: 02/11/18 9:31:00 CDT Iohexol 150 mL, Route: Inactive 02/11[facility] IVP, Drug Form: 2018 Medical SOLN, Dosing Center Weight 186.364, kg, ONCALL, STAT, Start date: 02/11/18 8:31:00 CDT, Duration: 1 doses or times, Dose=2.2ml/kg, Max dlwf=406ug -- "To be infused by Radiology Staff ONLY" Morphine 4 mg, Route: Inactive 02/11[facility] IVP, ONCE, 2018 Medical Dosing Weight Center 186.364, kg, Priority: STAT, Start date: 02/11/18 7:51:00 CDT, Stop date: 02/11/18 7:51:00 CDT Allergies, Adverse Reactions, Alerts Substance Category Reaction Severity Reaction Status Date Comments Source type Reported aspirin Assertion Drug Active allergy Medical Group Immunizations No Data Provided for This Section Results Order Name Results Value Reference Date Interpretation Comments Source Range ELECTROLYTE AGAP 12.6 10.0 - 04/28 [place] S 20.0 [place] ELECTROLYTE eGFR 124 04/28 Result [facility] S Comment: [facility] eGFR is calculated using the CKD-EPI formula. In most young, healthy individuals the eGFR will be >90 mL/min/1.73m2 . The eGFR declines with age. An eGFR of 60-89 may be normal in some populations, particularly the elderly, for whom the CKD-EPI formula has not been extensively validated. Use of the eGFR is not recommended in the following populations:< br/>
Mable viduals with unstable creatinine concentration s, including patients and those with serious co-morbid conditions.<b r/>
Patie nts with extremes in muscle mass or diet.

The data above are obtained from the National Kidney Disease Education Program (NKDEP) which additionally recommends that when the eGFR is used in patients with extremes of body mass index for purposes of drug dosing, the eGFR should be multiplied by the estimated BMI. ELECTROLYTE Calcium Lvl 8.6 8.5 - 10.5 09/22 [facility] [place] ELECTROLYTE Chloride Lvl 103 95 - 109 04/28 MH [facility] [place] ELECTROLYTE CO2 24 24 - 32 04/28 [facility] [place] ELECTROLYTE Sodium Lvl 136 135 - 145 04/28 [facility] [place] ELECTROLYTE Potassium Lvl 3.6 3.5 - 5.1 04/28 [place] [facility] [place] ELECTROLYTE Creatinine 0.61 0.50 - 04/28 MH [facility] S Lvl 1.40 /2017 Land ELECTROLYTE Glucose Lvl 127 70 - 99 04/28 MH [place] [facility] [place] ELECTROLYTE BUN 10 7 - 22 04/28 [place] [facility] [place] HEMATOLOGY Basophils # 0.0 0.0 - 0.2 04/28 [place] HEMATOLOGY Lymphocytes # 2.4 1.0 - 5.5 04/28 [place] HEMATOLOGY Monocytes # 0.6 0.0 - 0.8 04/28 [place] HEMATOLOGY Eosinophils # 0.1 0.0 - 0.5 04/28 [place] HEMATOLOGY Segs 60.9 45.0 - 04/28 [place] 75.0 [place] HEMATOLOGY Lymphocytes 29.4 20.0 - 04/28 [place] 40.0 [place] HEMATOLOGY Monocytes 7.8 2.0 - 12.0 04/28 [place] HEMATOLOGY Eosinophils 1.4 0.0 - 4.0 04/28 [place] HEMATOLOGY Neutrophils # 5.0 1.5 - 8.1 04/28 [place] HEMATOLOGY Basophils 0.5 0.0 - 1.0 04/28 [place] HEMATOLOGY MCHC 33.0 32.0 - 04/28 [place] 36.0 [place] HEMATOLOGY RDW 14.2 11.5 - 04/28 [place] 14.5 [place] HEMATOLOGY Platelet 173 133 - 450 04/28 [place] HEMATOLOGY MPV 10.3 7.4 - 10.4 04/282018 [place] HEMATOLOGY WBC 8.2 3.7 - 10.4 04/28 [place] HEMATOLOGY RBC 4.31 4.70 - 04/28 [place] 6.10 [place] HEMATOLOGY Hgb 13.1 14.0 - 04/28 [place] 18.0 [place] HEMATOLOGY Hct 39.5 42.0 - 04/28 [place] 54.0 /2017 [place] HEMATOLOGY MCV 91.8 80.0 - 04/28 [place] 94.0 /2017 [place] HEMATOLOGY MCH 30.3 27.0 - 04/28 [place] 31.0 /2017 [place] ELECTROLYTE AGAP 12.0 10.0 - 04/27 MH [place] S 20.0 /2017 [place] ELECTROLYTE eGFR 121 04/27 Result [place] Comment: The [place] eGFR is calculated using the CKD-EPI formula. In most young, healthy individuals the eGFR will be >90 mL/min/1.73m2 . The eGFR declines with age. An eGFR of 60-89 may be normal in some populations, particularly the elderly, for whom the CKD-EPI formula has not been extensively validated. Use of the eGFR is not recommended in the following populations:< br/>
Mable viduals with unstable creatinine concentration s, including patients and those with serious co-morbid conditions.<b r/>
Patie nts with extremes in muscle mass or diet.

The data above are obtained from the National Kidney Disease Education Program (NKDEP) which additionally recommends that when the eGFR is used in patients with extremes of body mass index for purposes of drug dosing, the eGFR should be multiplied by the estimated BMI. ELECTROLYTE Calcium Lvl 8.8 8.5 - 10.5 04/27 [place] [facility] [place] ELECTROLYTE Chloride Lvl 104 95 - 109 04/27 [facility] [place] ELECTROLYTE CO2 23 24 - 32 04/27 [place] [facility] [place] ELECTROLYTE Creatinine 0.65 0.50 - 04/27 [place] S Lvl 1.40 /2017 [place] ELECTROLYTE BUN 11 7 - 22 04/27 [place] [facility] [place] ELECTROLYTE Glucose Lvl 139 70 - 99 04/27 [place] [facility] [place] ELECTROLYTE Potassium Lvl 4.0 3.5 - 5.1 04/27 [facility] S 2018 [place] ELECTROLYTE Sodium Lvl 135 135 - 145 04/27 [place] [facility] [place] HEMATOLOGY Lymphocytes # 1.8 1.0 - 5.5 04/27 [place] HEMATOLOGY Neutrophils # 6.5 1.5 - 8.1 04/27 [place] HEMATOLOGY Eosinophils 0.4 0.0 - 4.0 04/27 [place] HEMATOLOGY Basophils 0.2 0.0 - 1.0 09/21 MH [place] /2018 [place] HEMATOLOGY Monocytes 6.3 2.0 - 12.0 04/27 [place] /2018 [place] HEMATOLOGY Lymphocytes 20.5 20.0 - 04/27 MH [place] 40.0 Land HEMATOLOGY Segs 72.6 45.0 - 04/27 MH [place] 75.0 /2017 [place] HEMATOLOGY Monocytes # 0.6 0.0 - 0.8 04/27 [place] HEMATOLOGY Basophils # 0.0 0.0 - 0.2 04/27 [place] HEMATOLOGY Eosinophils # 0.0 0.0 - 0.5 04/272018 [place] HEMATOLOGY Hgb 12.8 14.0 - 04/27 MH [place] 18.0 Land HEMATOLOGY RBC 4.36 4.70 - 04/27 MH [place] 6.10 [place] HEMATOLOGY RDW 14.0 11.5 - 04/27 [place] 14.5 [place] HEMATOLOGY MCV 90.4 80.0 - 04/27 [place] 94.0 Land HEMATOLOGY Hct 39.4 42.0 - 04/27 [place] 54.0 [place] HEMATOLOGY MCHC 32.5 32.0 - 04/27 MH [place] 36.0 Land HEMATOLOGY MCH 29.4 27.0 - 04/27 MH [place] 31.0 Land HEMATOLOGY MPV 9.9 7.4 - 10.4 04/27 [place] HEMATOLOGY Platelet 179 133 - 450 04/27 [place] HEMATOLOGY WBC 9.0 3.7 - 10.4 04/272018 [place] ELECTROLYTE AGAP 11.7 10.0 - 04/26 [place] S 20.0 Land ELECTROLYTE Calcium Lvl 8.8 8.5 - 10.5 04/26 [facility] S 2018 Land ELECTROLYTE CO2 27 24 - 32 04/26 MH [place] S 2018 [place] ELECTROLYTE eGFR 128 04/26 Result [place] S Comment: The [place] eGFR is calculated using the CKD-EPI formula. In most young, healthy individuals the eGFR will be >90 mL/min/1.73m2 . The eGFR declines with age. An eGFR of 60-89 may be normal in some populations, particularly the elderly, for whom the CKD-EPI formula has not been extensively validated. Use of the eGFR is not recommended in the following populations:< br/>
Mable viduals with unstable creatinine concentration s, including patients and those with serious co-morbid conditions.<b r/>
Patie nts with extremes in muscle mass or diet.

The data above are obtained from the National Kidney Disease Education Program (NKDEP) which additionally recommends that when the eGFR is used in patients with extremes of body mass index for purposes of drug dosing, the eGFR should be multiplied by the estimated BMI. ELECTROLYTE Chloride Lvl 104 95 - 109 04/26 MH [facility] S /2018 [place] ELECTROLYTE Sodium Lvl 139 135 - 145 04/26 MH [place] S /2018 [place] ELECTROLYTE Potassium Lvl 3.7 3.5 - 5.1 04/26 MH [place] S /2018 [place] ELECTROLYTE BUN 12 7 - 22 04/26 MH [place] S /2018 [place] ELECTROLYTE Creatinine 0.56 0.50 - 04/26 MH [place] [facility] Lvl 1.40 /2017 [place] ELECTROLYTE Glucose Lvl 108 70 - 99 04/26 MH [place] S /2018 [place] HEMATOLOGY Eosinophils 2.2 0.0 - 4.0 04/26 MH [place] /2018 [place] HEMATOLOGY Basophils 0.5 0.0 - 1.0 04/26 MH [facility] 2018 [place] HEMATOLOGY Lymphocytes 30.0 20.0 - 04/26 MH [place] 40.0 Land HEMATOLOGY Segs 61.5 45.0 - 04/26 MH [place] 75.0 /2018 [place] HEMATOLOGY Monocytes 5.8 2.0 - 12.0 04/26 MH [place] 2018 [place] HEMATOLOGY Eosinophils # 0.1 0.0 - 0.5 04/26 MH [place] /2018 [place] HEMATOLOGY Basophils # 0.0 0.0 - 0.2 04/26 MH [place] 2018 [place] HEMATOLOGY Lymphocytes # 2.0 1.0 - 5.5 04/26 MH [place] 2018 [place] HEMATOLOGY Neutrophils # 4.2 1.5 - 8.1 04/26 MH [place] /2018 [place] HEMATOLOGY Monocytes # 0.4 0.0 - 0.8 04/26 MH [place] /2018 [place] HEMATOLOGY RBC 4.24 4.70 - 04/26 MH [place] 6.10 /2017 [place] HEMATOLOGY WBC 6.8 3.7 - 10.4 04/26 MH [place] /2018 [place] HEMATOLOGY Hgb 12.9 14.0 - 04/26 MH [place] 18.0 /2018 [place] HEMATOLOGY Platelet 170 133 - 450 04/26 MH [place] /2018 [place] HEMATOLOGY MPV 10.6 7.4 - 10.4 09/20 MH [place] /2018 [place] HEMATOLOGY RDW 13.9 11.5 - 04/26 [place] 14.5 [place] HEMATOLOGY MCH 30.3 27.0 - 04/26 [place] 31.0 [place] HEMATOLOGY MCHC 33.3 32.0 - 04/26 [place] 36.0 [place] HEMATOLOGY Hct 38.6 42.0 - 04/26 [place] 54.0 [place] HEMATOLOGY MCV 90.9 80.0 - 04/26 [place] 94.0 [place] CHEM PANEL Lipase Lvl 135 73 - 393 04/25 Land CHEM PANEL Bili Total 0.3 0.2 - 1.3 04/25 Land CHEM PANEL Alk Phos 106 39 - 136 04/25 Land CHEM PANEL ALT 69 0 - 65 04/25 Land CHEM PANEL Total Protein 8.9 6.4 - 8.4 04/25 Land CHEM PANEL Albumin Lvl 3.5 3.5 - 5.0 04/25 Land CHEM PANEL AST 43 0 - 37 04/25 Land CHEM PANEL Globulin 5.4 2.7 - 4.2 04/25 Land CHEM PANEL A/G Ratio 0.6 0.7 - 1.6 04/25 Land CHEM PANEL B/C Ratio 23 6 - 25 04/25 Land CHEM PANEL Magnesium Lvl 1.7 1.8 - 2.4 04/25 Land CHEM PANEL eGFR 122 09/ Result Comment: The [place] eGFR is calculated using the CKD-EPI formula. In most young, healthy individuals the eGFR will be >90 mL/min/1.73m2 . The eGFR declines with age. An eGFR of 60-89 may be normal in some populations, particularly the elderly, for whom the CKD-EPI formula has not been extensively validated. Use of the eGFR is not recommended in the following populations:< br/>
Mable viduals with unstable creatinine concentration s, including patients and those with serious co-morbid conditions.<b r/>
Patie nts with extremes in muscle mass or diet.

The data above are obtained from the National Kidney Disease Education Program (NKDEP) which additionally recommends that when the eGFR is used in patients with extremes of body mass index for purposes of drug dosing, the eGFR should be multiplied by the estimated BMI. CHEM PANEL Bili Total 0.8 0.2 - 1.3 04/09 MH [place] CHEM PANEL Globulin 4.7 2.7 - 4.2 04/09 MH [place] CHEM PANEL A/G Ratio 0.7 0.7 - 1.6 / MH [place] CHEM PANEL ALT 71 0 - 65 04/09 MH [place] CHEM PANEL AST 52 0 - 37 / MH [place] CHEM PANEL Alk Phos 82 39 - 136 / MH [place] CHEM PANEL Total Protein 8.0 6.4 - 8.4 04/09 MH [place] CHEM PANEL Albumin Lvl 3.3 3.5 - 5.0 04/09 MH [place] CHEM PANEL AGAP 10.8 10.0 - 09 MH [place] 20.0 [place] CHEM PANEL Calcium Lvl 8.4 8.5 - 10.5 04/09 MH [place] CHEM PANEL B/C Ratio 16 6 - 25 04/09 MH [place] CHEM PANEL Sodium Lvl 136 135 - 145 / MH [place] CHEM PANEL Potassium Lvl 3.8 3.5 - 5.1 04/09 MH [place] CHEM PANEL Chloride Lvl 102 95 - 109 04/09 MH [place] CHEM PANEL CO2 27 24 - 32 04/09 MH [place] CHEM PANEL Creatinine 0.63 0.50 - 04/09 MH [place] Lvl 1.40 /2017 [place] CHEM PANEL Glucose Lvl 116 70 - 99 04/09 MH [place] CHEM PANEL BUN 10 7 - 22 04/09 MH [place] HEMATOLOGY MCHC 33.8 32.0 - 09/ MH [place] 36.0 /2018 [place] HEMATOLOGY RDW 14.2 11.5 - / MH [place] 14.5 [place] HEMATOLOGY Hct 37.1 42.0 - 09/ MH [place] 54.0 /2017 [place] HEMATOLOGY MCH 30.8 27.0 - 09/ MH [place] 31.0 /2018 [place] HEMATOLOGY MCV 91.2 80.0 - / MH [place] 94.0 /2018 [place] HEMATOLOGY Platelet 155 133 - 450 / MH [place] HEMATOLOGY MPV 10.1 7.4 - 10.4 / MH [facility] [place] HEMATOLOGY RBC 4.06 4.70 - 04/09 MH [place] 6.10 /2017 [place] HEMATOLOGY Hgb 12.5 14.0 - 04/09 [place] 18.0 /2017 [place] HEMATOLOGY WBC 6.1 3.7 - 10.4 04/09 MH [facility] [place] HEMATOLOGY Segs 56.3 45.0 - 04/09 [place] 75.0 /2017 [place] HEMATOLOGY Lymphocytes 33.5 20.0 - 04/09 [place] 40.0 /2017 [place] HEMATOLOGY Basophils 0.6 0.0 - 1.0 / MH [facility] [place] HEMATOLOGY Monocytes 6.9 2.0 - 12.0 04/09 MH [facility] [place] HEMATOLOGY Eosinophils 2.7 0.0 - 4.0 04/09 MH [place] HEMATOLOGY Neutrophils # 3.4 1.5 - 8.1 04/09 [place] HEMATOLOGY Lymphocytes # 2.0 1.0 - 5.5 04/09 MH [facility] [place] HEMATOLOGY Monocytes # 0.4 0.0 - 0.8 04/09 MH [place] HEMATOLOGY Eosinophils # 0.2 0.0 - 0.5 04/09 MH [place] HEMATOLOGY Basophils # 0.0 0.0 - 0.2 04/09 MH [place] SPECIAL Hgb A1C 6.9 <=5.6 % 04/09 CHEMISTRY Land ANEMIA UIBC 226 110 - 370 04/08 [facility] STUDY [place] ANEMIA % [place] 24 12 - 57 04/08 [facility] STUDY [place] ANEMIA Iron 73 45 - 160 04/08 [facility] STUDY [place] ANEMIA TIBC 299 228 - 428 04/08 [facility] STUDY [place] ANEMIA Ferritin Lvl 224 22 - 275 04/08 [facility] STUDY [place] CARDIAC BNP 62 <=100 04/08 [facility] ENZYMES pg/mL /2017 [place] CHEM PANEL Alk Phos 92 39 - 136 04/08 MH [place] CHEM PANEL AST 49 0 - 37 04/08 MH [place] CHEM PANEL Albumin Lvl 3.2 3.5 - 5.0 04/08 MH [place] CHEM PANEL Calcium Lvl 8.3 8.5 - 10.5 04/08 MH [place] CHEM PANEL ALT 70 0 - 65 04/08 MH [place] CHEM PANEL CO2 29 24 - 32 04/08 Land CHEM PANEL Total Protein 7.9 6.4 - 8.4 04/08 Land CHEM PANEL Chloride Lvl 102 95 - 109 04/08 Land CHEM PANEL Globulin 4.7 2.7 - 4.2 04/08 Land CHEM PANEL Bili Total 0.5 0.2 - 1.3 04/08 Land CHEM PANEL AGAP 9.0 10.0 - 04/08 [facility] 20.0 /2017 [place] CHEM PANEL A/G Ratio 0.7 0.7 - 1.6 04/08 [place] CHEM PANEL eGFR 128 04/08 Comment: [facility] eGFR is calculated using the CKD-EPI formula. In most young, healthy individuals the eGFR will be >90 mL/min/1.73m2 . The eGFR declines with age. An eGFR of 60-89 may be normal in some populations, particularly the elderly, for whom the CKD-EPI formula has not been extensively validated. Use of the eGFR is not recommended in the following populations:< br/>
Mable viduals with unstable creatinine concentration s, including patients and those with serious co-morbid conditions.<b r/>
Patie nts with extremes in muscle mass or diet.

The data above are obtained from the National Kidney Disease Education Program (NKDEP) which additionally recommends that when the eGFR is used in patients with extremes of body mass index for purposes of drug dosing, the eGFR should be multiplied by the estimated BMI. CHEM PANEL B/C Ratio 18 6 - 25 04/08 Land CHEM PANEL Glucose Lvl 143 70 - 99 04/08 [place] CHEM PANEL Sodium Lvl 136 135 - 145 04/08 Land CHEM PANEL Potassium Lvl 4.0 3.5 - 5.1 04/08 Land CHEM PANEL BUN 10 7 - 22 04/08 Land CHEM PANEL Creatinine 0.57 0.50 - 04/08 MH [place] Lvl 1.40 /2017 [place] HEMATOLOGY PT 14.9 12.0 - 09 MH [place] 14.7 /2018 [place] HEMATOLOGY INR 1.16 0.85 - 04/08 MH [place] 1.17 /2017 [place] IMMUNOLOGY SMA Screen Negative Negative 04/08 [facility] (04/08/18 6:25 AM) [facility] IMMUNOLOGY CERULOPLASMIN 27 20 - 60 04/08 MH [facility] IMMUNOLOGY LIVER KIDNEY 2.3 0.0 - 20.0 04/08 Result [facility] MICROSOME Comment: [facility] ABS. Negative 0.0 - 20.0
Equivocal 20.1 - 24.9
Positive >24.9

LKM type 1 antibodies are detected in patients with
auto immune hepatitis type 2 and in up to 8% of
patien ts with chronic HCV infection.
Performed At: [facility] [place], [place] [id number]<br/ >Sandra Springer MD Ph:[phone] IMMUNOLOGY Hep A IgM Negative Negative 04/08 [facility] *NA* /2017 [facility] (04/08/18 6:25 AM) IMMUNOLOGY Hep Bs Ag Negative Negative 04/08 [facility] *NA* [facility] (04/08/18 6:25 AM) IMMUNOLOGY Hep B Core Negative Negative 04/08 [facility] IgM *NA* [facility] (04/08/18 6:25 AM) IMMUNOLOGY Hep C Ab Negative 04/08 [facility] *NA* [facility] (04/08/18 6:25 AM) IMMUNOLOGY AMA Ab Scr Negative Negative 04/08 [facility] (04/08/18 6:25 AM) [facility] IMMUNOLOGY IVY Negative 1 Negative 04/08 Result [facility] (04/08/18 6:25 AM) Comment: [facility] Because the IVY was Negative, the Reflex assays for Anti-dsDNA, SM/HEAD MIXER, and Ro/La (SSA/SSB) were not performed. IMMUNOLOGY A-1-AT Pheno MZ 04/08 Result [facility] Comment: [facility] Phenotype Population A-1-AT Concentration
Incidence % Reference Interval
MM 86.5% 96 - 189
MS 8.0% 83 - 161
MZ 3.9% 60 - 111
FM 0.4% 93 - 191
SZ 0.3% 42 - 75
SS 0.1% 62 - 119
ZZ 0.05% 16 - 38
FS 0.05% 70 - 128
FZ Unknown 44 - 88
FF Unknown Unknown
P erformed At: [facility]
[address] [place], [place] [id number]<br/ >Sandra Springer MD Ph:[phone]
Performe d At: [facility]
[address] [place], [place] [id number]<br/ >Sammy ALARCON MD Ph:[phone] IMMUNOLOGY A-1-AT 107 90 - 200 04/08 [facility] (Sendout) /2017 [place] TUMOR AFP 4.7 0.0 - 11.0 04/08 Sugar MARKERS [place] CHEM PANEL eGFR 126 04/07 Result Comment: [facility] eGFR is calculated using the CKD-EPI formula. In most young, healthy individuals the eGFR will be >90 mL/min/1.73m2 . The eGFR declines with age. An eGFR of 60-89 may be normal in some populations, particularly the elderly, for whom the CKD-EPI formula has not been extensively validated. Use of the eGFR is not recommended in the following populations:< br/>
Mable viduals with unstable creatinine concentration s, including patients and those with serious co-morbid conditions.<b r/>
Patie nts with extremes in muscle mass or diet.

The data above are obtained from the National Kid[employer] Education Program (NKDEP) which additionally recommends that when the eGFR is used in patients with extremes of body mass index for purposes of drug dosing, the eGFR should be multiplied by the estimated BMI. CHEM PANEL Alk Phos 98 39 - 136 04/07 [place] CHEM PANEL Bili Total 0.6 0.2 - 1.3 04/07 [place] [place] CHEM PANEL Calcium Lvl 8.5 8.5 - 10.5 04/07 [place] CHEM PANEL B/C Ratio 20 6 - 25 04/07 [place] CHEM PANEL CO2 29 24 - 32 04/07 [place] CHEM PANEL AGAP 9.8 10.0 - 04/07 [facility] [place] 20.0 /2017 [place] CHEM PANEL Potassium Lvl 3.8 3.5 - 5.1 / [place] CHEM PANEL Chloride Lvl 101 95 - 109 / [place] CHEM PANEL Sodium Lvl 136 135 - 145 04/07 [place] CHEM PANEL BUN 12 7 - 22 04/07 [place] CHEM PANEL Creatinine 0.59 0.50 - 04/07 [place] L[place] 1.40 /2017 [place] CHEM PANEL Glucose Lvl 122 70 - 99 04/07 [place] CHEM PANEL Globulin 4.9 2.7 - 4.2 04/07 [place] CHEM PAN[place] A/G Ratio 0.7 0.7 - 1.6 04/07 [place] CHEM PANEL ALT 71 0 - 65 04/07 [place] CHEM PANEL AST 48 0 - 37 04/07 [place] CHEM PANEL Albumin Lvl 3.4 3.5 - 5.0 04/07 [place] CHEM PAN[place] Total Protein 8.3 6.4 - 8.4 04/07 [place] HEMATOLOGY Lymphocytes 36.0 20.0 - 04/07 [place] 40.0 [place] HEMATOLOGY Segs 53.8 45.0 - 04/07 [place] 75.0 [place] HEMATOLOGY Basophils 0.4 0.0 - 1.0 04/07 [place] HEMATOLOGY Eosinophils 2.6 0.0 - 4.0 04/07 [place] HEMATOLOGY Monocytes 7.2 2.0 - 12.0 04/07 [place] HEMATOLOGY Lymphocytes # 2.6 1.0 - 5.5 04/07 [place] HEMATOLOGY Neutrophils # 3.8 1.5 - 8.1 04/07 [place] HEMATOLOGY Basophils # 0.0 0.0 - 0.2 04/07 [place] HEMATOLOGY Eosinophils # 0.2 0.0 - 0.5 04/07 [facility] [place] HEMATOLOGY Monocytes # 0.5 0.0 - 0.8 04/07 [place] HEMATOLOGY WBC 7.1 3.7 - 10.4 04/07 [place] HEMATOLOGY RBC 4.16 4.70 - 04/07 [place] 6.10 [place] HEMATOLOGY MPV 10.3 7.4 - 10.4 04/07 [place] HEMATOLOGY Platelet 178 133 - 450 04/07 [facility] [place] /2017 [place] HEMATOLOGY Hgb 12.9 14.0 - 04/07 [facility] [place] 18.0 /2017 [place] HEMATOLOGY MCV 90.4 80.0 - 04/07 [facility] [place] 94.0 /2017 [place] HEMATOLOGY Hct 37.6 42.0 - 04/07 [facility] [place] 54.0 /2017 [place] HEMATOLOGY MCH 30.9 27.0 - 04/07 [facility] [place] 31.0 /2017 [place] HEMATOLOGY RDW 14.0 11.5 - 04/07 [facility] [place] 14.5 /2017 [place] HEMATOLOGY MCHC 34.2 32.0 - 04/07 [facility] [place] 36.0 /2017 [place] IMMUNOLOGY Hep B Core Negative Negative 04/07 [place] IgM *NA* /2017 [place] (04/07/18 5:52 AM) IMMUNOLOGY Hep C Ab Negative 04/07 [place] *NA* [facility] (04/07/18 5:52 AM) IMMUNOLOGY Hep A IgM Negative Negative 04/07 [place] *NA* [facility] (04/07/18 5:52 AM) IMMUNOLOGY Hep Bs Ag Negative Negative 04/07 [place] *NA* /2017 [facility] (04/07/18 5:52 AM) URINE AND UA Sq Epi None Seen 04/06 [place] STOOL /2017 [place] URINE AND UA 2.0 0.1 - 1.0 04/06 [place] [facility] Urobilinogen /2017 [place] URINE AND UA Nitrite Negative Negative 04/06 [place] [facility] (04/06/18 12:58 PM) [place] URINE AND UA Leuk Est Negative Negative 04/06 [place] [facility] (04/06/18 12:58 PM) [place] URINE AND UA Amorph Few /HPF None Seen 04/06 [place] [facility] Annalisa /HPF /2017 [place] URINE AND UA Protein Negative Negative 04/06 [place] [facility] mg/dL mg/dL /2017 [place] URINE AND UA Ketones Negative Negative 04/06 [place] [facility] mg/dL mg/dL [place] URINE AND UA Glucose Negative Negative 04/06 [place] [facility] mg/dL mg/dL [place] URINE AND UA Blood Negative Negative 04/06 [place] [facility] (04/06/18 12:58 PM) [place] URINE AND UA Bili Negative Negative 04/06 [place] [facility] *NA* [place] (04/06/18 12:58 PM) URINE AND UA Color Yellow Yellow 04/06 [place] [facility] *NA* [place] (04/06/18 12:58 PM) URINE AND UA Turbidity Marked Clear 04/06 [place] [facility] *ABN* /2017 [place] (04/06/18 12:58 PM) URINE AND UA pH 7.0 5.0 - 8.0 04/06 [place] [facility] [place] URINE AND UA Spec Grav 1.023 <=1.030 04/06 [place] [facility]OOL [place] CHEM PANEL Lipase Lvl 147 73 - 393 04/06 [place] HEMATOLOGY INR 1.14 0.85 - 04/06 [place] 1.17 [place] HEMATOLOGY PT 14.6 12.0 - 04/06 [place] 14.7 [place] HEMATOLOGY WBC 5.4 3.7 - 10.4 04/06 [place] HEMATOLOGY RBC 4.18 4.70 - 04/06 [place] 6.10 [place] HEMATOLOGY Platelet 167 133 - 450 04/06 [place] HEMATOLOGY MPV 9.9 7.4 - 10.4 04/06 [place] HEMATOLOGY MCH 30.4 27.0 - 04/06 [place] 31.0 [place] HEMATOLOGY MCHC 33.8 32.0 - 04/06 [place] 36.0 [place] HEMATOLOGY RDW 13.8 11.5 - 04/06 [place] 14.5 [place] HEMATOLOGY Hgb 12.7 14.0 - 04/06 [place] 18.0 [place] HEMATOLOGY Hct 37.6 42.0 - 04/06 [place] 54.0 [place] HEMATOLOGY MCV 90.0 80.0 - 04/06 [place] 94.0 [place] HEMATOLOGY PTT 34.7 22.9 - 04/06 [place] 35.8 [place] HEMATOLOGY Basophils # 0.1 0.0 - 0.2 04/06 [place] HEMATOLOGY Eosinophils # 0.1 0.0 - 0.5 04/06 [place] HEMATOLOGY Lymphocytes # 1.5 1.0 - 5.5 04/06 [place] HEMATOLOGY Monocytes # 0.3 0.0 - 0.8 04/06 [place] HEMATOLOGY Neutrophils # 3.4 1.5 - 8.1 04/06 [place] HEMATOLOGY Basophils 1.1 0.0 - 1.0 04/06 [place] HEMATOLOGY Monocytes 6.0 2.0 - 12.0 04/06 [place] HEMATOLOGY Eosinophils 2.2 0.0 - 4.0 04/06 [facility] HEMATOLOGY Segs 62.3 45.0 - 04/06 [place] 75.0 [facility] HEMATOLOGY Lymphocytes 28.4 20.0 - 04/06 [place] 40.0 [facility] CHEM PANEL Bili Direct 0.1 0.0 - 0.3 02/[address] CHEM PANEL Bili Total 0.5 0.2 - 1.3 02/[address] CHEM PANEL Alk Phos 86 39 - 136 02/[address] CHEM PANEL AST 47 0 - 37 02/[address] CHEM PANEL Total Protein 8.4 6.4 - 8.4 02/[address] CHEM PANEL A/G Ratio 0.6 0.7 - 1.6 02/[address] CHEM PANEL Globulin 5.1 2.7 - 4.2 02/[address] CHEM PANEL Albumin Lvl 3.3 3.5 - 5.0 02/[address] CHEM PANEL ALT 68 0 - 65 02/[address] CHEM PANEL Bili Indirect 0.4 0.0 - 1.0 02/[address] [place] [address] ELECTROLYTE AGAP 12.1 10.0 - 02/11 [facility] S 20.0 [facility] ELECTROLYTE eGFR 129 02/11 Result [facility] Comment: The Medical eGFR is Center calculated using the CKD-EPI formula. In most young, healthy individuals the eGFR will be >90 mL/min/1.73m2 . The eGFR declines with age. An eGFR of 60-89 may be normal in some populations, particularly the elderly, for whom the CKD-EPI formula has not been extensively validated. Use of the eGFR is not recommended in the following populations:< br/>
Mable viduals with unstable creatinine concentration s, including patients and those with serious co-morbid conditions.<b r/>
Patie nts with extremes in muscle mass or diet.

The data above are obtained from the National Kidney Disease Education Program (NKDEP) which additionally recommends that when the eGFR is used in patients with extremes of body mass index for purposes of drug dosing, the eGFR should be multiplied by the estimated BMI. ELECTROLYTE Chloride Lvl 105 95 - 109 07/[address] ELECTROLYTE Creatinine 0.56 0.50 - 07/08 [facility] S Lvl 1.40 /2017 [facility] ELECTROLYTE Sodium Lvl 141 135 - 145 07/ [address] ELECTROLYTE BUN 13 7 - 22 07/ [address] ELECTROLYTE Glucose Lvl 138 70 - 99 07/ [address] ELECTROLYTE Calcium Lvl 9.3 8.5 - 10.5 07/ [address] ELECTROLYTE CO2 28 24 - 32 07/ [address] ELECTROLYTE Potassium Lvl 4.1 3.5 - 5.1 07/ [address] HEMATOLOGY Monocytes 7.2 2.0 - 12.0 07/ [address] HEMATOLOGY Eosinophils 2.4 0.0 - 4.0 07/ [address] HEMATOLOGY Lymphocytes 31.9 20.0 - 07/08 [place] 40.0 /2017 [facility] HEMATOLOGY Segs 58.1 45.0 - 07/08 [place] 75.0 /2017 [facility] HEMATOLOGY Lymphocytes # 2.1 1.0 - 5.5 07/[address] HEMATOLOGY Eosinophils # 0.2 0.0 - 0.5 07/[address] HEMATOLOGY Segs-Bands # 3.8 1.5 - 8.1 07/ [address] HEMATOLOGY Basophils 0.4 0.0 - 1.0 07/[address] HEMATOLOGY Monocytes # 0.5 0.0 - 0.8 07/ [address] HEMATOLOGY PTT 34.2 22.9 - 07/08 [place] 35.8 /2017 [facility] HEMATOLOGY INR 1.16 0.85 - 07/08 [place] 1.17 /2017 [facility] HEMATOLOGY PT 14.9 12.0 - 07/08 [place] 14.7 /2017 [facility] HEMATOLOGY MPV 10.2 7.4 - 10.4 07/[address] HEMATOLOGY WBC 6.6 3.7 - 10.4 07/[address] HEMATOLOGY Hct 39.2 42.0 - 07/08 [place] 54.0 /2018 [facility] HEMATOLOGY RBC 4.34 4.70 - 07/08 [facility] [place] 6.10 /2017 [facility] HEMATOLOGY Hgb 13.5 14.0 - 02/11 [place] 18.0 /2017 [facility] HEMATOLOGY MCHC 34.5 32.0 - 07 [place] 36.0 [facility] HEMATOLOGY Platelet 154 133 - 450 02/11 [facility] HEMATOLOGY RDW 13.7 11.5 - 02/11 [place] 14.5 [facility] HEMATOLOGY MCH 31.2 27.0 - 02/11 [place] 31.0 [facility] HEMATOLOGY MCV 90.3 80.0 - 02/11 [place] 94.0 [facility] CHEM PANEL Magnesium Lvl 2.2 1.8 - 2.4 02/11 [facility] CHEM PANEL Phosphorus 4.6 2.5 - 4.5 02/11 [facility] HEMATOLOGY PTT 32.6 22.9 - 02/11 [place] 35.8 [facility] HEMATOLOGY INR 1.12 0.85 - 02/11 [place] 1.17 [facility] HEMATOLOGY PT 14.4 12.0 - 02/11 [place] 14.7 [facility] LIPIDS VLDL 25 02/11 [facility] LIPIDS LDL 87 <=99 mg/dL 02/11 [facility] (Calculated) [facility] LIPIDS Chol 147 <=199 02/11 [facility] mg/dL [facility] LIPIDS HDL 35 >=61 mg/dL 02/11 [facility] LIPIDS Trig 125 <=149 02/11 [facility] mg/dL [facility] LIPIDS CHD Risk 4.20 4.00 - 02/11 [facility] 7.30 [facility] SPECIAL Hgb A1C 7.9 <=5.6 % 02/11 [facility] CHEMISTRY [facility] AMPICILLIN+ Culture: >100,000 CFU/mL Escherichia coli 02/11 [facility] SULBACTAM:S Urine 10,000 - 50,000 CFU/mL Group B Streptococcus /2017 Medical [facility]:PT:ISOL No susceptibility performed since these organisms are Center ATE:ORDQN:M predictably susceptible to penicillin. If patient is IC penicillin allergic or susceptibility testing for additional antibiotics is clinically warranted please call the laboratory. AMPICILLIN+ Escherichia Escherichi 02/11 [facility] SULBACTAM:S coli a coli /2017 Medical [facility]:PT:ISOL Center ATE:ORDQN:M IC IMMUNOLOGY Hep B Core Negative Negative 02/11 [place] IgM *NA* Medical (02/11/18 9:48 AM) Center IMMUNOLOGY Hep Bs Ag Negative Negative 02/11 [place] *NA* Medical (02/11/18 9:48 AM) Center IMMUNOLOGY Hep C Ab Negative 02/11 [place] *NA* Medical (02/11/18 9:48 AM) Center IMMUNOLOGY Hep A IgM Negative Negative 02/11 [place] *NA* [facility] (02/11/18 9:48 AM) [place] URINE AND UA Nitrite Negative Negative 02/11 [facility] STOOL (02/11/18 9:42 AM) /2017 [facility] URINE AND UA Leuk Est Trace Negative 02/11 [facility] STOOL *ABN* [facility] (02/11/18 9:42 AM) [place] URINE AND UA 0.2 0.1 - 1.0 02/11 [facility] [place] [facility] Urobilinogen /2017 [facility] URINE AND UA pH 6.0 5.0 - 8.0 02/11 [facility] STOOL /2017 [facility] URINE AND UA Spec Grav 1.015 <=1.030 02/11 [place] STOOL /2017 [facility] URINE AND UA Turbidity Slight Cloudy Clear 02/11 [facility] [place] [facility] (02/11/18 9:42 AM) /2017 [facility] URINE AND UA Color Yellow Yellow 02/11 [facility] STOOL *NA* [facility] (02/11/18 9:42 AM) [place] URINE AND UA Bili Negative Negative 02/11 [facility] STOOL *NA* [facility] (02/11/18 9:42 AM) [place] URINE AND UA Blood Negative Negative 02/11 [facility] STOOL (02/11/18 9:42 AM) /2017 [facility] URINE AND UA Glucose Negative Negative 02/11 [facility] STOOL (02/11/18 9:42 AM) /2017 Medical [place] URINE AND UA Ketones Negative Negative 02/11 [facility] STOOL *NA* [facility] (02/11/18 9:42 AM) Center URINE AND UA Protein Negative Negative 02/11 [facility] STOOL (02/11/18 9:42 AM) /2017 [facility] Center URINE AND UA WBC 11-20 /HPF None Seen 02/11 [place] STOOL /HPF /2017 [facility] URINE AND UA Bacteria Many /HPF None Seen 02/11 [place] STOOL /HPF /2017 [facility] URINE AND UA Sq Epi Few /LPF Few /LPF 02/11 [facility] STOOL [address] [place] [address] URINE AND UA RBC None Seen 0 - 2 02/11 [facility] [place] [facility] (02/11/18 9:42 AM) [address] CHEM PANEL ALT 69 0 - 65 02/[address] CHEM PANEL Albumin Lvl 3.1 3.5 - 5.0 02/[address] CHEM PANEL Total Protein 8.2 6.4 - 8.4 02/[address] CHEM PANEL Bili Direct 0.1 0.0 - 0.3 02/[address] CHEM PANEL Bili Indirect 0.2 0.0 - 1.0 02/[address] CHEM PANEL AST 40 0 - 37 02/[address] CHEM PANEL Bili Total 0.3 0.2 - 1.3 02/[address] CHEM PANEL Alk Phos 94 39 - 136 02/[address] CHEM PANEL A/G Ratio 0.6 0.7 - 1.6 02/[address] CHEM PANEL Globulin 5.1 2.7 - 4.2 02/[address] CHEM PANEL Lipase Lvl 4101 73 - 393 02/[address] CHEM PANEL eGFR 118 02/11 [facility] Comment: The Medical eGFR is Center calculated using the CKD-EPI formula. In most young, healthy individuals the eGFR will be >90 mL/min/1.73m2 . The eGFR declines with age. An eGFR of 60-89 may be normal in some populations, particularly the elderly, for whom the CKD-EPI formula has not been extensively validated. Use of the eGFR is not recommended in the following populations:< br/>
Mable viduals with unstable creatinine concentration s, including patients and those with serious co-morbid conditions.<b r/>
Patie nts with extremes in muscle mass or diet.

The data above are obtained from the National Kidney Disease Education Program (NKDEP) which additionally recommends that when the eGFR is used in patients with extremes of body mass index for purposes of drug dosing, the eGFR should be multiplied by the estimated BMI. CHEM PANEL Calcium Lvl 9.1 8.5 - 10.5 02/[address] CHEM PANEL Glucose Lvl 178 70 - 99 07/[address] CHEM PANEL Sodium Lvl 137 135 - 145 07/[address] CHEM PANEL Potassium Lvl 4.2 3.5 - 5.1 07/ [address] CHEM PANEL Chloride Lvl 104 95 - 109 07/ [address] CHEM PANEL CO2 25 24 - 32 07/ [address] CHEM PANEL Creatinine 0.69 0.50 - 07/ [facility] Lvl 1.40 /2017 [facility] CHEM PANEL BUN 15 7 - 22 07/ [address] CHEM PANEL AGAP 12.2 10.0 - 07/08 [facility] 20.0 [facility] HEMATOLOGY MCH 31.2 27.0 - 07/08 [facility] 31.0 [facility] HEMATOLOGY MCHC 34.5 32.0 - 07/08 [facility] 36.0 [facility] HEMATOLOGY RDW 13.9 11.5 - 0708 [facility] 14.5 [facility] HEMATOLOGY Platelet 153 133 - 450 07/ [address] HEMATOLOGY MPV 9.9 7.4 - 10.4 07/ [address] HEMATOLOGY RBC 4.17 4.70 - 07/08 [facility] 6.10 [facility] HEMATOLOGY WBC 7.3 3.7 - 10.4 07/[address] HEMATOLOGY Hgb 13.0 14.0 - 07/08 [facility] 18.0 [facility] HEMATOLOGY Hct 37.7 42.0 - 07/08 [facility] 54.0 [facility] HEMATOLOGY MCV 90.5 80.0 - 07/08 [facility] 94.0 [facility] HEMATOLOGY Segs-Bands # 3.7 1.5 - 8.1 07/ [address] HEMATOLOGY Basophils 1.1 0.0 - 1.0 07/[address] HEMATOLOGY Monocytes # 0.6 0.0 - 0.8 07/ [address] HEMATOLOGY Lymphocytes # 2.7 1.0 - 5.5 07/[address] HEMATOLOGY Basophils # 0.1 0.0 - 0.2 07/08 [facility] [address] [place] [address] HEMATOLOGY Eosinophils # 0.2 0.0 - 0.5 07/08 [facility] HEMATOLOGY Eosinophils 2.6 0.0 - 4.0 02/11 [facility] HEMATOLOGY Monocytes 7.6 2.0 - 12.0 02/11 [facility]2017 [facility] HEMATOLOGY Segs 51.3 45.0 - 02/11 [facility] 75.0 [facility] HEMATOLOGY Lymphocytes 37.4 20.0 - 02/11 [facility] 40.0 [facility] Pathology Reports No Data Provided for This Section Diagnostic Reports Report Value Date Source Gallbladder US STUDY: Gallbladder ultrasound. 04/25/2018 [place] COMPARISON: CT dated 04/06/2018 HISTORY: - abdominal pain. FINDINGS: Ultrasound imaging of the right upper quadrant was performed. Liver: Enlarged measuring 24.0 cm in length. Normal echogenicity is seen. No focal liver mass is seen. Main portal venous flow is in the hepatopedal direction. Biliary tract: No intrahepatic biliary tract dilatation is seen. Common bile duct is normal in caliber measuring 3.4 mm. Gallbladder: Normal. No gallstones. No gallbladder wall thickening. No pericholecystic fluid collection. The sonographic Vines's sign is reported to be negative. Pancreas: Visualized pancreas is normal. Aorta: Visualized aorta is normal in caliber. IVC: IVC is patent. IMPRESSION: Hepatomegaly. Otherwise unremarkable gallbladder ultrasound. Stomach emptying NM Stomach emptying NM 04/08/2018 9:07 AM CDT 04/08/2018 [place] Clinical: - gastroparesis? Comparison: 04/06/2018 CT Technique and findings: 1 mCi of technetium 99m sulfur colloid with egg sandwich was given orally. Imaging was performed for 180 minutes. Almost linear emptying of the stomach is noted. The T1/2 is 42.8 minutes, within normal limits. Normal small bowel activity is seen. Impression: Gastric emptying time within normal limits. No evidence of gastroparesis. Gallbladder scan HIDA w NUCLEAR MEDICINE HIDA SCAN DATE: 04/06/20182017 [employer] [facility] Indication:42 years Male - biliary dyskinesai? COMPARISON: Today's CT exam TECHNIQUE: Following the intravenous administration of 6.2 millicuries technetium-99m Choletec, dynamic images of the abdomen were obtained in the anterior projection for 60 minutes. Next, after 3.7 mi crograms CCK, dynamic images were obtained of the abdomen for additional 30 minutes. A region of interest was drawn around the gallbladder and ejection fraction was calculated. FINDINGS: There is normal extraction of radiotracer by the hepatic parenchyma with normal clearance. The intrahepatic biliary duct, common bile duct, gallbladder and small bowel are all visualized within first 60 minutes Gallbladder ejection fraction is low at 17.8minutes, measuring 13%. (Normal is greater than 35%) Patients pain was re-created after CCK injection. IMPRESSION: Low gallbladder ejection fraction suggestive of biliary dyskinesia. Patient pain re-created with Kinevac injection. ED Abdomen/Pelvis IV CT OF ABDOMEN AND PELVIS WITH IV CONTRAST, 04/06/[address] [place] [address] HISTORY: Epigastric pain. Compared to abdomen ultrasound from [facility] dated 02/20/2018. TECHNIQUE: Sequential 5 mm axial postcontrast images (100 mL of Omnipaque 300) were obtained from the hemidiaphragms through the symphysis pubis. Delayed axial images and sagittal and coronal reconstructions were performed. DLP: 3186 mGy-cm. AEC, mA/kV adjustment by patient size, and/or iterative reconstruction technique were used, per departmental dose-optimization program. FINDINGS: Limited exam due to body habitus. The lung bases are clear. The liver is incompletely evaluated, but no focal liver mass or bile duct dilatation is noted. No evidence of calcified gallstones. Normal pancreas, spleen, adrenal glands, kidneys, abdominal aorta, and inferior vena cava. No evidence of large or small bowel obstruction or free air. Normal appendix. Possible mild sigmoid diverticulosis without diverticulitis. The regional skeleton appears intact. IMPRESSION: No acute findings. Abdomen RUQ US EXAM: US ABDOMEN RUQ Limited 02/11/2018 [facility] DATE: 02/11/2018 9:33 AM CDT Center INDICATION: - abdominal pain, CT shows concern for hepatosplenomegaly and portal hypertension ADDITIONAL INFORMATION: None. COMPARISON: CT abdomen pelvis 02/11/2018. TECHNIQUE: Multiplanar grayscale and color Doppler ultrasound of the abdomen. FINDINGS: Abdominal aorta and IVC: Visible portions are unremarkable. Liver: Craniocaudal length: 24.1 cm. Echogenicity: Moderately increased. Surface nodularity: No nodularity seen. Mass (size and location): None. Portal vein: 1.3 cm Appropriate directional flow. Bile ducts: Common bile duct diameter: 0.6 cm. Intrahepatic ducts: Normal. Pancreas: The body is obscured. The head and tail are obscured. Gallbladder: Normal. Spleen: Craniocaudal length: 16.7 cm. Mass or focal lesion (size and location): None. Ascites: None. IMPRESSION: 1. Moderate hepatosplenomegaly with moderate hepatic steatosis with no focal lesions seen. There is mild portal vein dilatation. Splenomegaly and mild portal vein dilatation suggest portal hypertension. Chest 2 views DX EXAM: XR CHEST 2 VIEWS 02/11/2018 [facility] DATE: 02/11/2018 9:30 AM CDT Center INDICATION: - SOB COMPARISON: None TECHNIQUE: PA and lateral chest radiographs FINDINGS: The study is somewhat limited secondary to large body habitus. Lines and tubes: None. Lungs and pleura: No pulmonary or pleural based abnormality is identified. Heart and mediastinum: Mild cardiomegaly. Mediastinal contours normal limits.. Bones: No acute bony abnormality is identified. IMPRESSION: Mild cardiomegaly. ED Abdomen/Pelvis IV EXAM: CT ABDOMEN AND PELVIS WITH CONTRAST 02/11/2018 [facility] contrast only CT DATE: 02/11/2018 at 0833 hours Center INDICATION: - abdominal pain ADDITIONAL INFORMATION: None. COMPARISON: None. TECHNIQUE: Volumetric CT of the abdomen and pelvis is acquired following the intravenous administration of contrast. Axial, coronal and sagittal images are provided. IV contrast: 150 mL of Omnipaque 350 Enteric contrast: None. DLP: 3716 mGy-cm FINDINGS: Lines, tubes and hardware: None. Lower thorax: Clear. Liver: * Enlarged. * Mildly nodular contours. * No focal lesions. Biliary tree: No intra- or extrahepatic biliary ductal dilation. Gallbladder: Normal. Pancreas: Normal. Spleen: Enlarged with AP diameter of 17.2 cm. Adrenals: Normal. Kidneys and ureters: * Renal artery aneurysm is 1.8 cm intracortical extent (, ). * No significant renal excretion identified. Bladder: Normal. Reproductive organs: Prostate and seminal vesicles are unremarkable. Gastrointestinal tract: Stomach: Normal. Small bowel: Normal. Colon: Normal. Appendix: Normal. Peritoneum, mesentery and retroperitoneum: * Minimal central mesenteric edema. * No free air, ascites or loculated fluid. Lymph nodes: Normal and borderline enlarged lymph nodes are seen in the upper abdomen, largest one in the hepatic artery station, measuring 1.2 cm in shortest diameter (12/01) Vasculature: Aorta and branches: Normal. IVC and veins: Normal. Portal vasculature: Normal. Bones: No acute abnormality. Age-related degenerative findings. Soft tissues: Normal. IMPRESSION: 1. Hepatosplenomegaly with mildly nodular hepatic contours. Please correlate with LFTs for hepatocellular disease/cirrhosis. 2. Minimal mesenteric edema and likely reactive lymph nodes, along with splenomegaly, may relate to portal hypertension. 3. Small right renal artery aneurysm. 4. No significant renal excretion identified. Please correlate with renal function. Consultation Notes No Data Provided for This Section Discharge Summaries No Data Provided for This Section History and Physicals No Data Provided for This Section Vital Signs Vital Sign Value Date Comments Source Systolic (mm Hg) 135 03/22/[facility] Diastolic (mm Hg) 80 03/22/2019 [facility] Heart Rate 78 03/22/2019 [facility] Height 182.88 cm 03/22/2019 [facility] Weight 161.364 03/22/2019 [facility] BMI Calculated 48.25 03/22/2019 [facility] Systolic (mm Hg) 111 04/28/2018 [place] Diastolic (mm Hg) 68 04/28/2018 [place] Respitory Rate 18 04/28/2018 [place] Heart Rate 67 04/28/2018 [place] Temperature Oral (F) 97.7 F 04/28/2018 [place] Heart Rate 65 04/28/2018 [place] Temperature Oral (F) 97.4 F 04/28/2018 [place] Systolic (mm Hg) 143 04/28/2018 [facility] [place] Diastolic (mm Hg) 87 04/28/2018 [place] Respitory Rate 18 04/28/2018 [facility] [place] Systolic (mm Hg) 138 04/28/2018 [facility] [place] Diastolic (mm Hg) 92 04/28/2018 [place] Heart Rate 72 04/28/2018 [place] Respitory Rate 18 04/28/2018 [place] Temperature Oral (F) 98.1 F 04/28/2018 [place] BMI Calculated 52.62 04/25/2018 [place] Weight 176 04/25/2018 [facility] [place] Height 182.88 cm 04/25/2018 [place] BMI Calculated 52.87 04/25/2018 [facility] [place] Height 182.88 cm 04/25/2018 [place] Weight 176.818 04/25/2018 [place] Heart Rate 76 04/25/2018 [facility] Systolic (mm Hg) 125 04/25/2018 [facility] Diastolic (mm Hg) 70 04/25/2018 [facility] Weight 183.807 04/25/2018 [facility] BMI Calculated 54.96 04/25/2018 [facility] Height 182.88 cm 04/25/2018 [facility] Temperature Oral (F) 98.3 F 04/09/2018 [place] Respitory Rate 18 04/09/2018 [place] Systolic (mm Hg) 131 04/09/2018 [place] Diastolic (mm Hg) 79 04/09/2018 [place] Heart Rate 68 04/09/2018 [place] Respitory Rate 18 04/09/2018 [place] Heart Rate 63 04/09/2018 [place] Systolic (mm Hg) 124 04/09/2018 [place] Diastolic (mm Hg) 76 04/09/2018 [place] Temperature Oral (F) 98.3 F 04/09/2018 [place] Respitory Rate 18 04/09/2018 [place] Systolic (mm Hg) 134 04/09/2018 [place] Diastolic (mm Hg) 77 04/09/2018 [place] Heart Rate 62 04/09/2018 [place] Temperature Oral (F) 98.4 F 04/09/2018 [place] BMI Calculated 55.04 04/06/2018 [place] Weight 184.091 04/06/2018 [place] Height 182.88 cm 04/06/2018 [place] Weight 188.636 04/06/2018 [place] BMI Calculated 56.4 04/06/2018 [place] Height 182.88 cm 04/06/2018 [place] Height 182.88 cm 04/06/2018 [facility] BMI Calculated 55.45 04/06/2018 [facility] Weight 185.455 04/06/2018 [facility] Heart Rate 85 04/06/2018 [facility] Systolic (mm Hg) 126 04/06/2018 [facility] Diastolic (mm Hg) 61 04/06/2018 [facility] Temperature Oral (F) 98.3 F 02/12/2018 [facility] Systolic (mm Hg) 136 02/12/2018 [facility] Diastolic (mm Hg) 79 02/12/2018 [facility] Respitory Rate 18 02/12/2018 [facility] Heart Rate 74 02/12/2018 [facility] Systolic (mm Hg) 110 02/12/2018 [facility] Diastolic (mm Hg) 63 02/12/2018 [facility] Respitory Rate 18 02/12/2018 [facility] Heart Rate 68 02/12/2018 [facility] Temperature Oral (F) 98.2 F 02/12/2018 [facility] Heart Rate 71 02/12/2018 [facility] Systolic (mm Hg) 127 02/12/2018 [facility] Diastolic (mm Hg) 69 02/12/2018 [facility] Respitory Rate 20 02/12/2018 [facility] Temperature Oral (F) 97.4 F 02/12/2018 [facility] Weight 190 02/11/2018 [facility] Height 182.88 cm 02/11/2018 [facility] BMI Calculated 56.81 02/11/2018 [facility] Height 182.88 cm 02/11/2018 [facility] BMI Calculated 55.72 02/11/2018 [facility] Weight 186.364 02/11/2018 [facility] Encounters Location Location Encounter Encounter Reason Attending ADM DC Status Source Details Type Number For Provider Date Date Visit [facility] [id number] Marek 02/11 02/12 [facility] Johnnie 9 [facility] Outpatient [id number] [facility] 04/06 [facility] [id number] Plac[facility] 04/06 04/07 [facility] Inpatient [id number] No 04/06 04/09 [facility] [place] Outpatient [id number] MAJNM BESSY 04/25 [facility] [id number] Kelvin Quinteros 04/25 04/28 [facility] [place] [facility] Outpatient [id number] Majid Bessy 04/25 04/26 [facility] [place] [facility] Outpatient [id number] NAD PLACIDO 09/04 [facility] Amb[facility] [id number] Nadim Lpacido 09/04 09/04 [facility] Outpatient [id number] Janell Shine 03/22 [facility] Outpatient [id number] Janell Shine 03/22 03/23 [facility] Procedures No Data Provided for This Section Assessment and Plan Assessment and Plan Date Source Extracted from:Title: Surgery 04/28/2018 [facility] Author: Evonne Molina DO Date: 04/27/18 SURGERY PROGRESS NOTE SUBJECTIVE: No acute issues. He is having some abdominal pain. Feels different than preoperatively. OBJECTIVE: Vital Signs: Temperature 98.4, blood pressure 120/74, rate 68 Intake and Output: Urine output 1700, oral intake 50 Physical Exam: General: No distress Abdomen: Soft, nondistended, appropriately tender, incisions are clean, dry, and intact Labs/Studies: White cell count 9, hemoglobin 12.8, platelets 179,000 Differential 72.6% neutrophils Cr 0.65, BUN 11, glucose 139 Imaging: None ASSESSMENT/PLAN: 42-year-old man status post laparoscopic cholecystectomy. He is having some postoperative pain. Ambulate, incentive spirometry, started Robaxin to help with his postoperative pain. H e cannot get Toradol as he has some sort of swelling reaction to aspirin. Patient can be discharged from our standpoint once pain is controlled. He needs strict alcohol cessation. He also needs signi ficant weight loss secondary to intraoperative findings of severe fatty liver as well as cirrhosis. Extracted from:Title: Operative Report Author: Yancy South DO Date: 04/26/18 DEPARTMENT OF SURGERY Operative Report DATE OF SURGERY: 04/26/2018 PREOPERATIVE DIAGNOSIS: Biliary dyskinesia POSTOPERATIVE DIAGNOSIS: Biliary dyskinesia Chronic cholecystitis Hepatomegaly and cirrohosis PROCEDURE PERFORMED: Laparoscopic cholecystectomy SURGEON: Yancy South D.O. MOBILE UI DESIGNER: Kieran Brown M.D. Assisted in exposure and holding the camera throughout the case. There are no residents available at this facility. ANESTHESIA: General and local ESTIMATED BLOOD LOSS: 20 ml FLUIDS GIVEN: See anesthesia record BLOOD PRODUCTS GIVEN: None IMPLANTS: 10 ml Floseal WOUND CLASSIFICATION: Clean-contaminated SPECIMEN: Gallbladder and contents FINDINGS: Hepatomegaly, macronodular liver consistent with cirrhosis. No ascites. Distended gallbladder, normal biliary anatomy ANTIBIOTICS: Patient received antibiotics within 1 hour of skin incision INDICATIONS FOR PROCEDURE: The patient is a 42-year-old morbidly obese male who initially presented to the hospital with intractable right upper quadrant abdominal pain. He underwent an extensive work-up, including CT abd/pelvis, gastric emptying study, EGD, RUQ ultrasound and HIDA scan. All was relatively unremarkable, except for HIDA which demonstrated a low gallbladder ejection fraction measuring 13% with recreation of pain after CCK injection. Due to his morbid obesity, the patient was instructed to lose weight in order to improve his overall risk prior to an elective procedure and was placed on a liver reduction diet for 2 weeks. He lost approximately 26 pounds. He re-presented to the hospital with severe, intractable abdominal pain. The patient wished to proceed with laparoscopic cholecystectomy for biliary dyskinesia . We reviewed other etiologies of his symptoms as his pain severity appeared atypical for biliary dyskinesia. We discussed how strethching of the liver capsule from his hepatomegaly may be contributing to his pain. We discussed the risk of failure of resolution of pain with cholecystectomy. We discussed the risks of infection, pain, bleeding, damage to surrounding structures, need for additional proce dures, as well as risk of common bile duct injury and bile leak. The patient voiced understanding and wished to proceed. OPERATIVE NOTE: After consent was obtained, the patient was brought to the OR and was placed on the operating room table in the supine position. Sequential compression boots were placed for DVT prophylaxis. General end otracheal anesthesia was performed without difficulty. The abdomen was prepped and sterilely draped in the usual fashion. A time-out was performed per hospital policy, verifying the correct patient and procedure. The patient's liver margin was palpable 10 cm beyond the bilateral costal margins. After local was injected, a 5-mm incision was made at the umbilicus. The fascia was grasped and a Veres s needle inserted into the peritoneal cavity with ease. The abdomen was insufflated with carbon dioxide to a pressure of 15 mmHg without complication. The abdomen was then entered using a 5-mm Optiview trocar. The laparoscope was introduced and the peritoneal cavity was inspected. No injuries were identified during initial entry into the abdomen. The patient had hepatomegaly with macronodular disease of the liver consistent with cirrhosis. There was no ascites. The gallbladder was distended. Under direct vision, three 5-mm trocars were placed in the sub- xiphoid location and along the right lateral a bdomen. A 12-mm trocar was re-placed at the umbilicus. The liver was stiff and difficult to lift. The gallbladder was grasped at the fundus and retracted superiorly and anteriorly. Omental adhesions wer e dissected off the gallbladder with a hook electrocautery all the way down to the infundibulum. There were dilated vessels within the omental adhesions due to suspected portal hypertension. The infundi bulum was retracted towards the right lower quadrant. The peritoneum over the infundibulum and cystic duct was incised and reflected medially and laterally along the gallbladder wall. An enlarged Calot lymph node was dissected down to expose the cystic artery. The cystic duct and cystic artery were identified and dissected circumferentially. Fat within the triangle of Calot was taken down. The dissect ion was continued until the critical view of safety was identified. The anatomy was very clear as we could see only two structures leading to the gallbladder. The cystic duct was double clipped proximal ly and single clipped distally and divided. The artery was likewise clipped and divided. The gallbladder was removed from the liver bed with Bovie electrocautery, placed in an Endocatch bag and removed through the 12-mm trocar site. The abdomen was suctioned and irrigated until clear. Small oozing from the liver bed was catuerized. The gallbladder fossa was reinspected where no active bleeding was see n. We then reinspected the cystic duct and artery stumps. The clips were intact. No leaks from the stumps of the cystic duct or cystic artery were seen. 10 ml of floseal was placed over the gallbladder fossa. The umbilical fascial defect was closed using interrupted 0 Vicryl sutures on a suture passer device. The abdomen was desufflated and the trocars were removed. The skin at all trocar sites was cl osed with 4-0 Monocryl. Dressing glue was applied. The patient tolerated the procedure well. The patient was subsequently extubated and transferred to recovery room in good condition. All needle, sponge , and instrument counts were correct prior to and after skin closure. Extracted from:Title: Surgery Consultation Note Author: Kieran Brown MD Date: 04/26/18 Impression and Plan Diagnosis Intractable right upper quadrant pain Biliary dyskinesia Morbid obesity BMI 52 Diabetes mellitus type 2 uncontrolled Obstructive sleep apnea on CPAP. Course: I have spoken to the patient as well as Dr. Yancy South has spoken to the patient was regarding laparoscopic cholecystectomy. His pain is atypical for a biliary tract disease. It is pos sible that he may still have this pain after his laparoscopic cholecystectomy. He has had an EGD and there was no evidence of any overt peptic ulcer disease but some gastritis. He still continues to h ave this pain across his upper abdomen that this could be very well hepatic related from the stretch of the capsule. He understands and we have elicited the risks and benefits of surgery to him. He patterson s lost weight that will improve his overall risk but he still at risk for any kind of cardiovascular cardiorespiratory, BTE, surgical site infections secondary to his overall comorbidities. He also und erstands the risk of conversion to an open operation. We will schedule him for laparoscopic cholecystectomy. Education and Follow-up: Counseled: Patient, Regarding diagnosis, Regarding treatment, Regarding medications. 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 While patient is in the clinic still complaining of severe 10 out of 10 right upper quadrant abdominal pain radiating to the left side of the abdomen. Patient had some nausea and vomiti ng. Patient came to the emergency for further care. Patient had ultrasound that did not show acute findings however patient had previous HIDA scan showing biliary dyskinesia. Patient is being admitte d for pain control general surgeon has been consulted by the emergency room physician Review of systems all 14 points review of systems have been reviewed and are negative except for HPI Past Medical and surgical history Morbid obesity depression hypertension diabetes Family History Negative for chronic disease Social history Alcohol Details: Past Tobacco Details: Use: Current some day smoker. Tobacco smoke exposure: None. Did the Patient Smoke Cigarettes Anytime During the Last 365 Days? Yes. Cessation Counseling Provided? Yes. Vitals Vitals Tmp(F) Pulse BP RR SpO2 FIO2 04/25 17:10 97.8 72 133/97 16 96 --- 04/25 16:00 ---- --- 146/81 18 97 --- 04/25 14:28 ---- 70 148/85 18 100 --- 04/25 12:17 ---- 72 145/76 16 97 --- 04/25 10:51 97.6 73 130/78 18 99 --- 24 Hr Tmax: 97.8F (36.56c) at 04/25 17:10 Vital Signs are the last 5 in the past 48 hours. Physical Exam: Gen: [id number] HEENT: NC AT EOMI MMM PERRLA CV: RRR no m/g/r Pulm: CTAB no c/w/f Abd: soft severe tender to palpation right upper quadrant nd + bs no rebound no rigidity Ext: No c/c/e Neuro: CN II-XII grossly intact MS: normal muscle strength and sensation througout all 4 extremities Derm: No rashes LABS Labs (Last four charted values) WBC 6.6 (SEP ) Hgb L 13.1 (APR 25) Hct L 39.3 (SEP ) Plt 177 (APR 25) Na 138 (SEP ) K 4.1 (APR 25) CO2 27 (APR 25) Cl 104 (SEP ) Cr 0.64 (SEP ) BUN 15 (APR 25) Glucose Random H 143 (APR 25) Mg L 1.7 (APR 25) Ca 8.9 (APR 25) HIDA IMPRESSION: Low gallbladder ejection fraction suggestive of biliary dyskinesia. Patient pain re-created with Kinevac injection. Assessment and plan 42-year-old male with 1. Acute on chronic pain-patient has severe pain requiring to be admitted for pain control patient is already on large amounts of [place] at home and his pain is still out of control we will start patient IV morphine for pain control 2. Dehydration start patient IV fluids 3. Biliary dyskinesia-with severe right upper quadrant abdominal pain we will consult general surgeon 4. Diabetes continue Accu-Cheks and sliding scale insulin 5. Sleep apnea continue CPAP machine at night 6. Hypertension resume home medication as tolerated 7. DVT GI prophylaxis 8. Patient will be admitted for inpatient services for acute on chronic abdominal pain not responding to oral treatment Kelvin Quinteros DO Hospitalist Extracted from:Title: Progress Note 04/09/2018 [facility] Author: Yancy South DO Date: 04/09/18 GENERAL SURGERY PROGRESS NOTE SUBJECTIVE: Patient underwent an EGD with Dr. Shine yesterday. He continues to complain of right upper quadrant abdominal pain, especially after eating. He currently denies nausea. OBJECTIVE: Vital Signs: Temperature 98.3, blood pressure 131/79, pulse 60, respiratory rate 18, SPO2 97% on room air Intake and Output: Oral intake 620 mL, void 1, stool not recorded PHYSICAL EXAM: General: No apparent distress, resting calmly with his CPAP in place. Respiratory: Respirations are non-labored Cardiac: Regular rate and rhythm Abdomen: Obese, soft, tender to palpation along the right upper quadrant. LABS: Sodium 136, potassium 3.8, chloride 102, CO2 27, BUN 10, creatinine 0.63, glucose 116 ALT stable at 71, AST stable at 52, alk phos 82, total bilirubin 0.8 Hemoglobin A1c 6.9 White blood cell count 6.1, hemoglobin 12.5, hematocrit 37.1, platelet 155 INR 1.16 Hepatitis panel negative 2, alpha-fetoprotein tumor marker 4.7, ceruloplasmin 27 IMAGING: Gastric emptying study 04/08/2018 Gastric emptying time within normal limits. No evidence of gastroparesis. HIDA scan 04/06/2018 Ejection fraction 13% suggestive of biliary dyskinesia. Patient pain re- created with CCK injection. ASSESSMENT: The patient is a 42-year-old male with morbid obesity, BMI 56, possible alcoholic liver cirrhosis, type 2 diabetes mellitus, admitted with intractable right upper quadrant abdominal pain. Workup consistent with biliary dyskinesia. Recommendations: I had a long discussion with the patient regarding the diagnosis of biliary dyskinesia and treatment options. I have recommended an elective laparoscopic cholecystectomy after at least 10 days of a liquid liver shrinking diet. This will aid in weight loss. A diet handout has been provided. The patient may be discharged home with pain medication He was instructed to follow-up with me in clinic next week. Extracted from:Title: Discharge Summary * Author: Jonatan Davis DO Date: 04/09/18 Discharge Plan Discharge Summary Plan Discharge Status: stable. Discharge instructions given: to patient. Discharge disposition: discharge to home. Prescriptions: continue same medications, called to pharmacy, written and given to patient. Diagnosis Right upper quadrant abdominal pain Biliary dyskinesia - presumed Morbid obesity of BMI of 56 Alcoholic liver cirrhosis Type 2 diabetes mellitus Presumed gastritis - r/o . Course Progressing as expected. Education and Follow-up Counseled: patient. Extracted from:Title: History and Physical Author: Roberta Webb MD Date: 04/06/18 [id number] 1. Acute abdominal pain, etiology unclear. HIDA scan significant for biliary dyskinesia. Discussedplan of care with gastroenterology. Will proceed with surgical evaluationfor possiblelaparoscopic cholec ystectomy. Continue supportive care and pain control 2.History ofalcohol abuse,will place patient onwithdrawal protocol. Seizure precaution 3. Liver cirrhosisnotedon imaging studies. Likely alcoholic liver cirrhosis. Patient has been counseled. Gastroenterology on board 4. Portal hypertension, likely secondary to liver cirrhosis. Will continue supportive care and await on further recommendation by GI 5. History of diabetes type 2, Will start patient on sliding scale insulin. Monitor Accu-Cheks 6. History ofdepression. Currently on sertraline at home which will be resumed 7. Morbid obesityBMI 56.4. Patient has been counseledabout importance ofdiet modification and weight loss 8. DVT and GI prophylaxis Extracted from:Title: Resident Addendum to H&P 02/12/2018 [facility] Author: Daiana Thorpe MD Date: 02/11/18 Received checkout from hospitalist at 11:30AM. Briefly, patient is a 42 yo man with h/o obstructive sleep apnea on home CPAP, insulin dependant T2DM, morbid obesity, presenting with abdominal pain that began 2-3 days ago, is in the center of his abd omen and radiating to his back, has progressed from 5 to 8/10 pain, burning in nature. He does endorse heavy drinking 1x/month (20-pack of beer and 2x shots of tequila), also went to a [employer] fo r a family ember the night before presenting. Pain is somewhat related to meals , but has persisted and worsened since it began prompting him to seek help [facility] At that facility h e was given morphine and dilaudid, which briefly relieved his pain, he was made NPO and an attempt was made for a CT scan, but patient not able to fit into the scanner at that location. His lipase was f ound to be ~140o. He was then transferred to [facility] for higher level of care. Lipase at [facility] ER was ~4000. CT scan performed that did not show any abnormalities of the pancreas but did reveal moderate hepatosplenomegaly and mild portal hypertension. No gallstones visualized on US. Mild transaminitis, normal BMP and CBC, lipid panel and HgbA1c pending. Patient admitted to medicine for continued fluid hydration and pain control. On exam, patient is awake, alert, orient, in mild distress due to abdominal pain. Vital signs; however, are normal and stable (HR72, BP 126/72), last dilaudid dose 3 hours ago. Abdomen is morbidly obese , soft, no guarding with pressure from stethoscope but guarding to regular palpation, normoactive bowel sounds, due to habitus organomegaly is difficult to appreciate. Plan: - LR running at 125cc/hr - pain control with PRN morphine, norco, tramadol - NPO for now, but will attempt to advance diet as tolerated - unclear if patient is totally honest about his drinking history, will place him on CIWA protocol as a precaution but unlikely that he is at risk for withdrawal. Extracted from:Title: Team A History and Physical Author: Maryjane Hawk MD Date: 02/11/18 Mr. Busby is a 42 yo man with a PMH of DM II, OSAon CPAP, who presents to ED as transfer from [facility] for 3 days of worsening LUQ/Mid- epigastric abdominal pain and concern for pa ncreatitis (Lipase 4101). CT and RUQ US significant for Hepatosplenomegaly, hepatic steatosis, portal hypertension, no stones noted. Admitted to Medicine Team A for further management. #Pancreatitis - Lipase 4101 here (1435 at OSH) - Imaging showed normal pancreas, no stones - LR running at 125cc/hr - pain control with PRN morphine, norco, tramadol - NPO for now, but will attempt to advance diet as tolerated - VSS, will CTM - GI will see patient, pending recs #Metabolic Syndrome- DM/HSM/Mild Transaminitis - glucose 178 at admit, A1c 7.9% - ALT/AST 69/40 at admit - on home Levemir and Novalog as well as metformin - followed by Dr. Cardenas in [place] for DM management - reports occasional tingling/numbness of b/l feet, likley 2/2 diabetic neuropathy - takes Gabapentin - RUQ US and Abd CT - hepatic steatosis,HSM, and portal hypertension. No stones visualized - f/u PT/OT Consults #H/o Binge drinking - endorses drinking 20+ drinks once per month - not clear if being honest about drinking history - last session 2 weeks ago #Chronic L Knee Pain - states related to his weight, is attempting to lose weight (has lost 52 lbs in past few months largely through dietary changes) lovenox Inpatient management of acute pancreatitis episode TEACHING ATTENDING ATTESTATION STATEMENT: I have examined this patient and obtained the history and performed a physical examination and 12 systems ROS. I have evaluated the objective data and determine d the assessment and plan. I have seen this patient with Dr. Hawk, medicine resident and I have discussed the findings on this patient in detail with the resident on teaching rounds. We have seen this patient together on teaching rounds. I have reviewed his note above and I agree with the findings and plan of care outlined by Dr. Hawk in his initial history and physical above. Marek Mabry MD Medicine Team A Teaching Service Attending Plan of Care No Data Provided for This Section Social History Social History Date Source Social History TypeResponse 04/06/2018 [facility] Alcohol Past Smoking Status Current some day smoker; Exposure to Tobacco Smoke None; Cigarette Smoking Last 365 Days Yes; Reg Smoking Cessation Counseling Yes entered on: 03/22/19 Social History TypeResponse 04/06/2018 [place] Alcohol Past Smoking Status Current some day smoker; Exposure to Tobacco Smoke None; Cigarette Smoking Last 365 Days Yes; Reg Smoking Cessation Counseling Yes entered on: 04/25/18 Social History TypeResponse 02/11/2018 [facility] Smoking Status Never smoker; Exposure to Tobacco Smoke None; Cigarette Smoking Last 365 Days Yes; Reg Smoking Cessation Counseling No entered on: 02/11/18 Family History No Data Provided for This Section Advance Directives No Data Provided for This Section Functional Status No Data Provided for This Section
--- OUTSIDE RECORDS SUMMARY | 2019-04-13 21:58 | XMS REPORT | Summary of Care ---
:1975 Author Organization [facility] Address [address] [place] [id number]- Encounter HQ Rubensntr_kinjal(FIN) [id number] Date(s): 02/11/18 - 02/12/[address] Professional Services provided by [facility] [place] [address]- Discharge Disposition: Home or Self Care Attending Physician: Marek Mendez MD Admitting Physician: Marek Mendez MD Referring Physician: Marek boudreaux MD Vital Signs Most recent to oldest [Reference 1 2 3 Range]: Height 182.88 cm 182.88 cm (02/11/18 2:39 PM) (02/11/18 7:14 AM) Temperature Oral [96.4-99.1 98.3 DegF 98.2 DegF 97.4 DegF DegF] (02/12/18 12:22 PM) (02/12/18 8:56 AM) (02/12/18 12:40 AM) Blood Pressure [90-140/60-90 136/79 mmHg 110/63 mmHg 127/69 mmHg mmHg] (02/12/18 12:22 PM) (02/12/18 8:56 AM) (02/12/18 5:20 AM) Respiratory Rate [14-20 BRMIN] 18 BRMIN 18 BRMIN 20 BRMIN (02/12/18 12:22 PM) (02/12/18 8:56 AM) (02/12/18 5:20 AM) Peripheral Pulse Rate [60-100 74 bpm 68 bpm 71 bpm bpm] (02/12/18 12:22 PM) (02/12/18 8:56 AM) (02/12/18 5:20 AM) Weight 190 kg 186.364 kg (02/11/18 2:39 PM) (02/11/18 7:14 AM) Body Mass Index 56.81 m2 55.72 m2 (02/11/18 2:39 PM) (02/11/18 7:14 AM) Problem List No data available for this section Allergies, Adverse Reactions, Alerts Substance Reaction Severity Status aspirin Active Medications acetaminophen-hydrocodone 325 mg-5 mg oral tablet 2 tab, Route: PO, Drug Form: TAB, Dosing Weight 186.364, kg, Q4H, PRN Pain Score 4-6, Start date: 02/11/18 12:18:00 CDT, Duration: 30 day, Stop date: 03/13 12:17:00 CDT Notes: (Same as: Sterling 325/5) Do not exceed 4gm/day of acetaminophen. Start Date: 02/11/18 Stop Date: 02/11/18 Status: DiscontinuedDilaudid 1 mg, Route: IVP, ONCE, Dosing Weight 186.364, kg, Priority: STAT, Start date: 02/11/18 9:51:00 CDT,Stop date: 02/11/18 9:51:00 CDT Start Date: 02/11/18 Stop Date: 02/11/18 Status: CompletedFlexeril 10 mg, PO, BID, PRN Muscle Spasm, # 30 tab, 0 Refill(s) Start Date: 02/11/18 Stop Date: 02/21/18 Status: OrderedFlexeril 10 mg, 1 tab, Route: PO, Drug form: TAB, Q12H, Dosing Weight 190, kg, PRN as needed for muscle spasm, Start date: 02/11/18 15:21:00 CDT, Duration: 30 day, Stop date: 03/13/18 15:20:00 CDT Notes: (Same As: Flexeril) Start Date: 02/11/18 Stop Date: 02/12/18 Status: Discontinuedgabapentin 200 mg, 2 cap, Route: PO, Drug form: CAP, BID, Dosing Weight 190, kg, Start date : 02/11/18 17:00:00 CDT, Duration: 30 day, Stop date: 03/13/18 9:00:00 CDT Notes: (Same as: Neurontin) Start Date: 02/11/18 Stop Date: 02/12/18 Status: Discontinuedgabapentin 200 mg, PO, BID, 0 Refill(s) Start Date: 02/11/18 Status: Orderedhydromorphone 0.2 mg, 0.1 mL, Route: IVP, Drug form: INJ, Q4H, Dosing Weight 186.364, kg, PRN Pain Score 7-10, Start date: 02/11/18 12:18:00 CDT, Duration: 30 day, Stop date : 03/13/18 12:17:00 CDT Notes: Same as Dilaudid Start Date: 02/11/18 Stop Date: 02/11/18 Status: DiscontinuedLactated Ringers (Bolus) IV 1,000 mL, 1,000 ml/hr, Infuse Over: 1 hr, Route: IV, ONCE, Priority: STAT, Dosing Weight 186.364 kg,Start date: 02/11/18 9:31:00 CDT, Stop date: 02/11/18 9 :31:00 CDT Start Date: 02/11/18 Stop Date: 02/11/18 Status: CompletedLactated Ringers IV 1,000 mL 1,000 mL, Rate: 125 ml/hr, Infuse over: 8 hr, Route: IV, Dosing Weight 186.364 kg, Total Volume: 1,000, Start date: 02/11/18 12:18:00 CDT, Duration: 30 day, Stop date: 03/13/18 12:17:00 CDT, 3.13, m2 Start Date: 02/11/18 Stop Date: 02/12/18 Status: DiscontinuedLevemir 10 unit, SUB-Q, 0 Refill(s) Start Date: 02/11/18 Status: OrderedLORazepam 2 mg, 1 mL, Route: IVP, Drug form: INJ, Q2H, Dosing Weight 186.364, kg, PRN Withdrawal, Start date: 02/11/18 14:03:00 CDT, Duration: 30 day, Stop date: 02/21 14:02:00 CDT Notes: (Same as: Ativan) Start Date: 02/11/18 Stop Date: 02/12/18 Status: DiscontinuedLovenox 40 mg, 0.4 mL, Route: SUB-Q, Drug form: INJ, [id number], Dosing Weight 186.364, kg , Start date: 02/11/18 15:00:00 CDT, Duration: 30 day, Stop date: 03/12/18 15:00 :00 CDT Notes: (Same as: Lovenox) Start Date: 02/11/18 Stop Date: 02/11/18 Status: DiscontinuedLovenox 40 mg, 0.4 mL, Route: SUB-Q, Drug form: INJ, [id number], Dosing Weight 186.364, kg , Start date: 02/11/18 16:00:00 CDT, Duration: 30 day, Stop date: 03/13/18 4:00: 00 CDT Notes: (Same as: Lovenox) Start Date: 02/11/18 Stop Date: 02/12/18 Status: DiscontinuedmetFORMIN 1,000 mg, PO, Daily, 0 Refill(s) Start Date: 02/11/18 Status: Orderedmorphine Sulfate 4 mg, Route: IVP, ONCE, Dosing Weight 186.364, kg, Priority: STAT, Start date: 02/11/18 7:51:00 CDT,Stop date: 02/11/18 7:51:00 CDT Start Date: 02/11/18 Stop Date: 02/11/18 Status: Completedmorphine Sulfate 2 mg, 0.5 mL, Route: IV, Drug form: SOLN, Q4H, Dosing Weight 186.364, kg, PRN Pain Score 7-10, Startdate: 02/11/18 13:35:00 CDT, Duration: 30 day, Stop date: 03/13/18 13:34:00 CDT Notes: (Same as:MORPhine Sulfate) Start Date: 02/11/18 Stop Date: 02/12/18 Status: Discontinuedmultivitamin 1 tab, Route: PO, Drug Form: TAB, Dosing Weight 186.364, kg, Daily, Start date: 02/12/18 9:00:00 CDT, Duration: 5 day, Stop date: 02/16/18 9:00:00 CDT Notes: (Same as:Thera)WASTE: F/P - Black; E - Municipal Trash Bin Take with food. Start Date: 02/12/18 Stop Date: 02/12/18 Status: DiscontinuedNorco 10/325 oral tablet 1 tab, Route: PO, Drug Form: TAB, Dosing Weight 190, kg, Q4H, PRN Pain Score 6- 10, Start date: 02/11/18 15:45:00 CDT, Duration: 30 day, Stop date: 03/13/18 15: 44:00 CDT Notes: Do not exceed 4gm/day of acetaminophen. (Same as: Sterling 325/10) Start Date: 02/11/18 Stop Date: 02/12/18 Status: DiscontinuedNovoLOG 4 unit, SUB-Q, TID-Before Meals, 0 Refill(s) Start Date: 02/11/18 Status: OrderedOmnipaque 350mg/ml 150 mL, Route: IVP, Drug Form: SOLN, Dosing Weight 186.364, kg, ONCALL, STAT, Start date: 02/11/18 8:31:00 CDT, Duration: 1 doses or times, Dose=2.2ml/kg, Max vaet=[id number] -- "To be infused by RadiologyStaff ONLY" Start Date: 02/11/18 Stop Date: 02/11/18 Status: Completedondansetron 4 mg, 2 mL, Route: IVP, Drug form: INJ, ONCE, Dosing Weight 186.364, kg, PRN Nausea & Vomiting, Start date: 02/11/18 12:18:00 CDT Notes: (Same as: Cabrera) MEDICATION WASTE Product Size: 4 mgProduct Wasted: ___ mg Start Date: 02/11/18 Stop Date: 02/12/18 Status: Discontinuedsertraline 150 mg, PO, Daily, 0 Refill(s) Start Date: 02/11/18 Status: Orderedsertraline 150 mg, 3 tab, Route: PO, Drug form: TAB, Daily, Dosing Weight 190, kg, Start date: 02/12/18 9:00:00CDT, Duration: 30 day, Stop date: 03/13/18 9:00:00 CDT Notes: (Same as: Zoloft) Start Date: 02/12/18 Stop Date: 02/12/18 Status: Discontinuedtramadol 50 mg, 1 tab, Route: PO, Drug form: TAB, Q6H, Dosing Weight 186.364, kg, PRN Pain Score 6-10, Start date: 02/11/18 12:18:00 CDT, Stop date: 03/13/18 12:17: 00 CDT Notes: Not to exceed 400mg/day. (Same As: Ultram) Start Date: 02/11/18 Stop Date: 02/12/18 Status: Discontinuedtramadol 50 mg oral tablet 100 mg=2 tab, PO, Q6H, PRN Pain Score 6-10, not to exceed 400 mg/day, # 40 tab, 0 Refill(s) Start Date: 02/12/18 Stop Date: 02/12/18 Status: Deletedtramadol 50 mg oral tablet 100 mg=2 tab, PO, Q6H, PRN Pain Score 6-10, not to exceed 400 mg/day, X 5 day, # 40 tab, 0 Refill(s) Start Date: 02/12/18 Stop Date: 02/17/18 Status: Ordered Results ELECTROLYTES Most recent to oldest [Reference Range]: 1 2 Sodium Lvl [135-145 mEq/L] 141 mEq/L 137 mEq/L (02/11/18 4:23 PM) (02/11/18 8:05 AM) Potassium Lvl [3.5-5.1 mEq/L] 4.1 mEq/L 4.2 mEq/L (02/11/18 4:23 PM) (02/11/18 8:05 AM) Chloride Lvl [95-109 mEq/L] 105 mEq/L 104 mEq/L (02/11/18 4:23 PM) (02/11/18 8:05 AM) CO2 [24-32 mEq/L] 28 mEq/L 25 mEq/L (02/11/18 4:23 PM) (02/11/18 8:05 AM) AGAP [10.0-20.0 mEq/L] 12.1 mEq/L 12.2 mEq/L (02/11/18 4:23 PM) (02/11/18 8:05 AM) CHEM PANEL Most recent to oldest [Reference Range]: 1 2 Creatinine Lvl [0.50-1.40 mg/dL] 0.56 mg/dL 0.69 mg/dL (02/11/18 4:23 PM) (02/11/18 8:05 AM) eGFR 129 mL/min/1.73m2 1 118 mL/min/1.73m2 2 *NA* *NA* (02/11/18 4:23 PM) (02/11/18 8:05 AM) BUN [7-22 mg/dL] 13 mg/dL 15 mg/dL (02/11/18 4:23 PM) (02/11/18 8:05 AM) Glucose Lvl [70-99 mg/dL] 138 mg/dL 178 mg/dL *HI* *HI* (02/11/18 4:23 PM) (02/11/18 8:05 AM) Total Protein [6.4-8.4 g/dL] 8.4 g/dL 8.2 g/dL (02/11/18 4:23 PM) (02/11/18 8:05 AM) Albumin Lvl [3.5-5.0 g/dL] 3.3 g/dL 3.1 g/dL *LOW* *LOW* (02/11/18 4:23 PM) (02/11/18 8:05 AM) Globulin [2.7-4.2 g/dL] 5.1 g/dL 5.1 g/dL *HI* *HI* (02/11/18 4:23 PM) (02/11/18 8:05 AM) A/G Ratio [0.7-1.6] 0.6 0.6 *LOW* *LOW* (02/11/18 4:23 PM) (02/11/18 8:05 AM) Calcium Lvl [8.5-10.5 mg/dL] 9.3 mg/dL 9.1 mg/dL (02/11/18 4:23 PM) (02/11/18 8:05 AM) Phosphorus [2.5-4.5 mg/dL] 4.6 mg/dL *HI* (02/11/18 12:50 PM) Magnesium Lvl [1.8-2.4 mg/dL] 2.2 mg/dL (02/11/18 12:50 PM) ALT [0-65 unit/L] 68 unit/L 69 unit/L *HI* *HI* (02/11/18 4:23 PM) (02/11/18 8:05 AM) AST [0-37 unit/L] 47 unit/L 40 unit/L *HI* *HI* (02/11/18 4:23 PM) (02/11/18 8:05 AM) Alk Phos [39-136 unit/L] 86 unit/L 94 unit/L (02/11/18 4:23 PM) (02/11/18 8:05 AM) Bili Total [0.2-1.3 mg/dL] 0.5 mg/dL 0.3 mg/dL (02/11/18 4:23 PM) (02/11/18 8:05 AM) Bili Direct [0.0-0.3 mg/dL] 0.1 mg/dL 0.1 mg/dL (02/11/18 4:23 PM) (02/11/18 8:05 AM) Bili Indirect [0.0-1.0 mg/dL] 0.4 mg/dL 0.2 mg/dL (02/11/18 4:23 PM) (02/11/18 8:05 AM) Lipase Lvl [73-393 unit/L] 4101 unit/L *HI* (02/11/18 8:05 AM) 1Result Comment: The eGFR is calculated using the CKD-EPI formula. In most young , healthy individualsthe eGFR will be >90 mL/min/1.73m2. The eGFR declines with age. An eGFR of 60-89 may be normal insome populations, particularly the elderly, for whom the CKD-EPI formula has not been extensively validated. Use of the eGFR is not recommended in the following populations: Individuals with unstable creatinine concentrations, including patients and those with serious co-morbid conditions. Patients with extremes in muscle mass or diet. The data above are obtained from the National Kidney Disease Education Program ( NKDEP) which additionally recommends that when the eGFR is used in patients with extremes of body mass index for purposesof drug dosing, the eGFR should be multiplied by the estimated BMI.2Result Comment: The eGFR is calculated using the CKD-EPI formula. In most young, healthy individualsthe eGFR will be >90 mL/min/1.73m2. The eGFR declines with age. An eGFR of 60-89 may be normal insome populations, particularly the elderly, for whom the CKD-EPI formula has not been extensively validated. Use of the eGFR is not recommended in the following populations: Individuals with unstable creatinine concentrations, including patients and those with serious co-morbid conditions. Patients with extremes in muscle mass or diet. The data above are obtained from the National Kidney Disease Education Program ( NKDEP) which additionally recommends that when the eGFR is used in patients with extremes of body mass index for purposesof drug dosing, the eGFR should be multiplied by the estimated BMI.LIPIDS Most recent to oldest [Reference Range]: 1 2 CHD Risk [4.00-7.30] 4.20 (02/11/18 12:50 PM) Chol [<=199 mg/dL] 147 mg/dL (02/11/18 12:50 PM) Trig [<=149 mg/dL] 125 mg/dL (02/11/18 12:50 PM) HDL [>=61 mg/dL] 35 mg/dL *LOW* (02/11/18 12:50 PM) LDL (Calculated) [<=99 mg/dL] 87 mg/dL (02/11/18 12:50 PM) VLDL 25 *NA* (02/11/18 12:50 PM) SPECIAL CHEMISTRY Most recent to oldest [Reference Range]: 1 2 Hgb A1C [<=5.6 %] 7.9 % *HI* (02/11/18 12:50 PM) URINE AND STOOL Most recent to oldest [Reference Range]: 1 2 UA Turbidity [Clear] Slight Cloudy (02/11/18 9:42 AM) UA Color [Yellow] Yellow *NA* (02/11/18 9:42 AM) UA pH [5.0-8.0] 6.0 (02/11/18 9:42 AM) UA Spec Grav [<=1.030] 1.015 (02/11/18 9:42 AM) UA Glucose [Negative] Negative (02/11/18 9:42 AM) UA Blood [Negative] Negative (02/11/18 9:42 AM) UA Ketones [Negative] Negative *NA* (02/11/18 9:42 AM) UA Protein [Negative] Negative (02/11/18 9:42 AM) UA Urobilinogen [0.1-1.0 EU/dL] 0.2 EU/dL (02/11/18 9:42 AM) UA Bili [Negative] Negative *NA* (7/8/18 9:42 AM) UA Leuk Est [Negative] Trace *ABN* (02/11/18 9:42 AM) UA Nitrite [Negative] Negative (02/11/18 9:42 AM) UA WBC [None Seen /HPF] 11-20 /HPF *ABN* (02/11/18 9:42 AM) UA RBC [0-2] None Seen (02/11/18 9:42 AM) UA Bacteria [None Seen /HPF] Many /HPF (02/11/18 9:42 AM) UA Sq Epi [Few /LPF] Few /LPF (02/11/18 9:42 AM) IMMUNOLOGY Most recent to oldest [Reference Range]: 1 2 Hep Bs Ag [Negative] Negative *NA* (02/11/18 9:48 AM) Hep B Core IgM [Negative] Negative *NA* (02/11/18 9:48 AM) Hep A IgM [Negative] Negative *NA* (02/11/18 9:48 AM) Hep C Ab Negative *NA* (02/11/18 9:48 AM) HEMATOLOGY Most recent to oldest [Reference Range]: 1 2 WBC [3.7-10.4 K/CMM] 6.6 K/CMM 7.3 K/CMM (02/11/18 4:23 PM) (02/11/18 8:05 AM) RBC [4.70-6.10 M/CMM] 4.34 M/CMM 4.17 M/CMM *LOW* *LOW* (02/11/18 4:23 PM) (02/11/18 8:05 AM) Hgb [14.0-18.0 g/dL] 13.5 g/dL 13.0 g/dL *LOW* *LOW* (02/11/18 4:23 PM) (02/11/18 8:05 AM) Hct [42.0-54.0 %] 39.2 % 37.7 % *LOW* *LOW* (02/11/18 4:23 PM) (02/11/18 8:05 AM) MCV [80.0-94.0 fL] 90.3 fL 90.5 fL (02/11/18 4:23 PM) (02/11/18 8:05 AM) MCH [27.0-31.0 pg] 31.2 pg 31.2 pg *HI* *HI* (02/11/18 4:23 PM) (02/11/18 8:05 AM) MCHC [32.0-36.0 g/dL] 34.5 g/dL 34.5 g/dL (02/11/18 4:23 PM) (02/11/18 8:05 AM) RDW [11.5-14.5 %] 13.7 % 13.9 % (02/11/18 4:23 PM) (02/11/18 8:05 AM) MPV [7.4-10.4 fL] 10.2 fL 9.9 fL (02/11/18 4:23 PM) (02/11/18 8:05 AM) Platelet [133-450 K/CMM] 154 K/CMM 153 K/CMM (02/11/18 4:23 PM) (02/11/18 8:05 AM) Segs [45.0-75.0 %] 58.1 % 51.3 % (02/11/18 4:23 PM) (02/11/18 8:05 AM) Lymphocytes [20.0-40.0 %] 31.9 % 37.4 % (02/11/18 4:23 PM) (02/11/18 8:05 AM) Monocytes [2.0-12.0 %] 7.2 % 7.6 % (02/11/18 4:23 PM) (02/11/18 8:05 AM) Eosinophils [0.0-4.0 %] 2.4 % 2.6 % (02/11/18 4:23 PM) (02/11/18 8:05 AM) Basophils [0.0-1.0 %] 0.4 % 1.1 % (02/11/18 4:23 PM) *HI* (02/11/18 8:05 AM) Segs-Bands # [1.5-8.1 K/CMM] 3.8 K/CMM 3.7 K/CMM (02/11/18 4:23 PM) (02/11/18 8:05 AM) Lymphocytes # [1.0-5.5 K/CMM] 2.1 K/CMM 2.7 K/CMM (02/11/18 4:23 PM) (02/11/18 8:05 AM) Monocytes # [0.0-0.8 K/CMM] 0.5 K/CMM 0.6 K/CMM (02/11/18 4:23 PM) (02/11/18 8:05 AM) Eosinophils # [0.0-0.5 K/CMM] 0.2 K/CMM 0.2 K/CMM (02/11/18 4:23 PM) (02/11/18 8:05 AM) Basophils # [0.0-0.2 K/CMM] 0.1 K/CMM (02/11/18 8:05 AM) PT [12.0-14.7 seconds] 14.9 seconds 14.4 seconds *HI* (02/11/18 12:50 PM) (02/11/18 4:23 PM) INR [0.85-1.17] 1.16 1.12 (02/11/18 4:23 PM) (02/11/18 12:50 PM) PTT [22.9-35.8 seconds] 34.2 seconds 32.6 seconds (02/11/18 4:23 PM) (02/11/18 12:50 PM) Microbiology Reports TEST:Culture: Urine STATUS:Auth (Verified) BODY SITE: SOURCE:Urine, Clean Catch COLLECTED DATE/TIME:02/11/18 9:50 AMFINAL REPORT>100,000 CFU/mL Escherichia coli 10,000 - 50,000 CFU/mL Group B Streptococcus No susceptibility performed since these organisms are predictably susceptible to penicillin. If patient is penicillin allergic or susceptibility testing for additional antibiotics is clinically warranted please call the laboratory. ORGANISM:Escherichia coli Immunizations No data available for this section Procedures No data available for this section Social History Social History Type Response Smoking Status Never smoker; Exposure to Tobacco Smoke None; Cigarette Smoking Last 365 Days Yes; Reg Smoking Cessation Counseling No entered on: 02/11/18 Assessment and Plan Extracted from: Title: Resident Addendum to H&P Author: Daiana Thorpe MD Date: 02/11 Received checkout from hospitalist at 11:30AM. Briefly, [...] of tequila), also went to a [employer] party fo r a family ember the night before presenting. Pain is somewhat related to meals , but has persisted and worsened since it began prompting him to seek help at an ER in [facility] [place], [place]. At that facility h e was given morphine and dilaudid, which briefly relieved his pain, he was made NPO and an attempt was made for a CT scan, but patient not able to fit into the scanner at that location. His lipase was f ound to be ~140o. He was then transferred to [facility] for higher level of care. Lipase at [facility] ER was ~4000. CT scan performed [...] he is at risk for withdrawal. Extracted from: Title: Team A History and Physical Author: Maryjane Hawk MD Date: 02/11/18 Mr. Busby is a 42 yo man with a PMH of DM II, OSAon CPAP, who presents to ED as transfer from [facility] for 3 days of worsening LUQ/ Mid-epigastric abdominal pain and concern for pancreatitis (Lipase 4101). CT and RUQ US significant [...] metformin - followed by Dr. Cardenas in [place] for DM management - reports occasional tingling/numbness [...] past few months largely through dietary changes) [facility] Inpatient management of acute pancreatitis episode TEACHING ATTENDING ATTESTATION STATEMENT: I have examined this patient and obtained the history and performed a physical examination and 12 systems ROS. I have evaluated the objective data and determi frnacisco the assessment and plan. I have seen [...]
--- OUTSIDE RECORDS SUMMARY | 2019-04-13 21:58 | XMS REPORT | Summary of Care ---
:1975 Author Organization [facility] Address [address] [address]- Encounter HQ [email or web address](FIN) [id number] Date(s): 04/25/18 - 04/28/18 [facility] [address] [id number]- Encounter Diagnosis Other specified diseases of gallbladder (Final) - 07/07/18 Morbid (severe) obesity due to excess calories (Final) - Obstructive sleep apnea (adult) (pediatric) (Final) - Body mass index (BMI) 50-59.9, adult (Final) - Unspecified cirrhosis of liver (Final) - Chronic cholecystitis (Final) - Type 2 diabetes mellitus without complications (Final) - Essential (primary) hypertension (Final) - Dehydration (Final) - Hepatomegaly, not elsewhere classified (Final) - nursing home (current) use of oral hypoglycemic drugs (Final) - Other chronic pain (Final) - Major depressive disorder, single episode, unspecified (Final) - Fatty (change of) liver, not elsewhere classified (Final) - Nicotine dependence, cigarettes, uncomplicated (Final) - Discharge Disposition: Home or Self Care Attending Physician: Kelvin Quinteros DO Admitting Physician: Kelvin Quinteros DO Vital Signs Most recent to oldest 1 2 3 [Reference Range]: Height 182.88 cm 182.88 cm (04/25/18 6:55 PM) (04/25/18 10:51 AM) Temperature Oral [96.4-99.1 97.7 DegF 97.4 DegF 98.1 DegF DegF] (04/28/18 12:08 PM) (04/28/18 8:04 AM) (04/28/18 3:00 AM) Blood Pressure [90-140/60-90 111/68 mmHg 143/87 mmHg 138/92 mmHg mmHg] (04/28/18 12:08 PM) *HI* (04/28/18 3:00 AM) (04/28/18 8:04 AM) Respiratory Rate [14-20 18 BRMIN 18 BRMIN 18 BRMIN BRMIN] (04/28/18 12:08 PM) (04/28/18 8:04 AM) (04/28/18 3:00 AM) Peripheral Pulse Rate [60-100 67 bpm 65 bpm 72 bpm bpm] (04/28/18 12:08 PM) (04/28/18 8:04 AM) (04/28/18 3:00 AM) Weight 176 kg 176.818 kg (04/25/18 6:55 PM) (04/25/18 10:51 AM) Body Mass Index 52.62 m2 52.87 m2 (04/25/18 6:55 PM) (04/25/18 10:51 AM) Problem List Condition Effective Dates Status Health Status Informant Acute abdominal pain(Confirmed) Active Diabetes(Confirmed) Active Morbid obesity(Confirmed) Active Preop cardiovascular exam(Confirmed) Active Allergies, Adverse Reactions, Alerts Substance Reaction Severity Status aspirin Active Medications ANES acetaminophen 1,000 mg, 2 tab, Route: PO, Drug form: TAB, ONCE, Dosing Weight 176, kg, PRN Pain Score 1-3, Start date: 04/26/18 18:13:00 CDT Notes: Max acetaminophen 4000 mg/day (4 gm/day). (Same as: Tylenol Extra Strength) Start Date: 04/26/18 Stop Date: 04/26/18 Status: DiscontinuedANES albuterol 0.083% inhalation solution 2.49 mg, 3 mL, Route: NEB, Drug form: SOLN, Q20Min, Dosing Weight 176, kg, PRN Wheezing, Priority: STAT, Start date: 04/26/18 18:13:00 CDT, Duration: 30 day, Stop date: 05/26/18 18:12:00 CDT Notes: SEE RT DOCUMENTATION (Same as: Dorothea) Start Date: 04/26/18 Stop Date: 04/26/18 Status: DiscontinuedANES dexamethasone 4 mg, 1 mL, Route: IVP, Drug form: INJ, ONCE, Dosing Weight 176, kg, PRN Nausea & Vomiting, Start date: 04/26/18 18:13:00 CDT Notes: Concentration: 4mg/ml Start Date: 04/26/18 Stop Date: 04/26/18 Status: DiscontinuedANES diphenhydrAMINE 12.5 mg, 0.25 mL, Route: IVP, Drug form: INJ, Q6H, Dosing Weight 176, kg, PRN Itching, Start date: 04/26/18 18:13:00 CDT, Duration: 30 day, Stop date: 18:12:00 CDT Notes: (Same as: Josel) Start Date: 04/26/18 Stop Date: 04/26/18 Status: DiscontinuedANES ePHEDrine 5 mg, 1 mL, Route: IVP, Drug form: INJ, Q5Min, Dosing Weight 176, kg, PRN Low Blood Pressure, Start date: 04/26/18 18:13:00 CDT, Duration: 30 day, Stop date: 05/26/18 18:12:00 CDT Notes: final concentration 5 mg/mL Start Date: 04/26/18 Stop Date: 04/26/18 Status: DiscontinuedANES fentaNYL 25 microgram, 0.5 mL, Route: IVP, Drug form: INJ, Q5Min, Dosing Weight 176, kg, PRN Pain Score 4-6, Priority: Routine, Start date: 04/26/18 18:13:00 CDT, Duration: 4 doses or times, Stop date: Limited # of times Notes: (Same as: Sublimaze) Preservative free. Start Date: 04/26/18 Stop Date: 04/26/18 Status: CompletedANES glycopyrrolate 0.2 mg, 1 mL, Route: IVP, Drug form: INJ, Q5Min, Dosing Weight 176, kg, PRN Bradycardia, Start date:04/26/18 18:13:00 CDT, Duration: 3 doses or times, Stop date: Limited # of times Notes: (Same as: Haris) Start Date: 04/26/18 Stop Date: 04/26/18 Status: DiscontinuedANES hydrALAZINE 10 mg, 0.5 mL, Route: IVP, Drug form: INJ, Q20Min, Dosing Weight 176, kg, PRN Elevated BP, Start date: 04/26/18 18:13:00 CDT, Duration: 2 doses or times, Stop date: Limited # of times Notes: (Same as: Apresoline)Push over 5 minutes Start Date: 04/26/18 Stop Date: 04/26/18 Status: DiscontinuedANES HYDROmorphone 0.5 mg, 0.25 mL, Route: IVP, Drug form: INJ, Q5Min, Dosing Weight 176, kg, PRN Pain Score 7-10, Start date: 04/26/18 18:13:00 CDT, Duration: 4 doses or times, Stop date: Limited # of times Notes: Same as Dilaudid Start Date: 04/26/18 Stop Date: 04/26/18 Status: CompletedANES ketOROLAC 30 mg, Route: IVP, ONCE, Dosing Weight 176, kg, PRN Pain Score 1-5, Start date: 04/26/18 20:00:00 CDT Start Date: 04/26/18 Stop Date: 04/26/18 Status: CompletedANES LORazepam 0.5 mg, 0.25 mL, Route: IVP, Drug form: INJ, Q20Min, Dosing Weight 176, kg, PRN Anxiety, Start date:04/26/18 18:13:00 CDT, Duration: 3 doses or times, Stop date : Limited # of times Notes: (Same as: Ativan) Start Date: 04/26/18 Stop Date: 04/26/18 Status: DiscontinuedANES meperidine 12.5 mg, 0.25 mL, Route: IVP, Drug form: INJ, Q30Min, Dosing Weight 176, kg, PRN Other -See Comment,For shivering, Start date: 04/26/18 18:13:00 CDT, Duration: 2 doses or times, Stop date: Limited # of times Notes: (Same as: Demerol) "Use Precaution in Elderly, Seizure disorders, and Renal impairment" Start Date: 04/26/18 Stop Date: 04/26/18 Status: DiscontinuedANES naloxone 0.4 mg, 1 mL, Route: IVP, Drug form: INJ, Q2MIN, Dosing Weight 176, kg, PRN Narcotic Reversal, Startdate: 04/26/18 18:13:00 CDT, Duration: 8 doses or times , Stop date: Limited # of times Notes: Same as Narcan Start Date: 04/26/18 Stop Date: 04/26/18 Status: DiscontinuedANES ondansetron 4 mg, 2 mL, Route: IVP, Drug form: INJ, ONCE, Dosing Weight 176, kg, PRN Nausea & Vomiting, Start date: 04/26/18 18:13:00 CDT Notes: (Same as: Zofran) MEDICATION WASTE Product Size: 4 mgProduct Wasted: ___ mg Start Date: 04/26/18 Stop Date: 04/26/18 Status: DiscontinuedANES promethazine 6.25 mg, 0.25 mL, Route: IM, Drug form: INJ, ONCE, Dosing Weight 176, kg, PRN Nausea & Vomiting,Start date: 04/26/18 18:13:00 CDT Notes: Do not give IV push. (Same as: Phenergan) Start Date: 04/26/18 Stop Date: 04/26/18 Status: DiscontinuedANES racepinephrine 11.25 mg, 0.5 mL, Route: NEB, Drug Form: SOLN, Dosing Weight 176, kg, PRN, PRN Shortness of breath, Start date: 04/26/18 18:13:00 CDT, Duration: 30 day, Stop date: 05/26/18 18:12:00 CDT Notes: (racepinephrine *2.25% inh 0.5ml SOLN) (Same as:S2) Start Date: 04/26/18 Stop Date: 04/26/18 Status: DiscontinuedceFAZolin (ANES) Route: IV, Drug form: INJ, ONCE, Stop date: 04/26/18 17:14:00 CDT Start Date: 04/26/18 Stop Date: 04/26/18 Status: CompletedceFAZolin + sterile water 20 mL 2 gm, Route: IVPB, ONCALL, Dosing Weight 176, kg, Start date: 04/26/18 10:00:00 CDT, Duration: 1 doses or times, ABX Indication: Surgical Prophylaxis Notes: (Same As: Marie Donahue) MEDICATION WASTE Product Size: 1000 mgProduct Wasted: ___ mg Start Date: 04/26/18 Stop Date: 04/28/18 Status: [id number] 1/2NS 1,000 mL 1,000 mL, Rate: 100 ml/hr, Infuse over: 10 hr, Route: IV, Dosing Weight 176 kg, Total Volume: 1,000,Start date: 04/27/18 7:11:00 CDT, Duration: 30 day, Stop date: 05/27/18 7:10:00 CDT, 3.04, m2 Start Date: 04/27/18 Stop Date: 04/28/18 Status: [id number] 1/2NS 1,000 mL 1,000 mL, Rate: 150 ml/hr, Infuse over: 6.7 hr, Route: IV, Dosing Weight 176 kg , Total Volume: 1,000, Start date: 04/25/18 17:10:00 CDT, Duration: 30 day, Stop date: 05/25/18 17:10:00 CDT, 3.04, m2 Start Date: 04/25/18 Stop Date: 04/27/18 Status: Discontinueddexamethasone (ANES) Route: IV, Drug form: INJ, ONCE, Stop date: 04/26/18 17:14:00 CDT Start Date: 04/26/18 Stop Date: 04/26/18 Status: CompletedDextrose 50% Syringe 25 gm, 50 mL, Route: IVP, Drug Form: INJ, Dosing Weight 176, kg, PRN, PRN Blood Glucose Results, Start date: 04/25/18 21:15:00 CDT, Duration: 30 day, Stop date : 05/25/18 21:14:00 CDT Start Date: 04/25/18 Stop Date: 04/28/18 Status: DiscontinuedDextrose 50% Syringe 12.5 gm, 25 mL, Route: IVP, Drug Form: INJ, Dosing Weight 176, kg, PRN, PRN Blood Glucose Results, Start date: 04/25/18 21:15:00 CDT, Duration: 30 day, Stop date: 05/25/18 21:14:00 CDT Start Date: 04/25/18 Stop Date: 04/28/18 Status: DiscontinuedDiamox 250 mg, Route: IVP, ONCE, Dosing Weight 176, kg, Start date: 04/26/18 18:08:00 CDT, Stop date: 04/26/18 18:08:00 CDT Start Date: 04/26/18 Stop Date: 04/26/18 Status: CompletedDilaudid 0.5 mg, 0.25 mL, Route: IV, Drug form: INJ, Q4H, Dosing Weight 176, kg, PRN Pain Score 6-10, Start date: 04/27/18 14:02:00 CDT, Duration: 30 day, Stop date : 05/27/18 14:01:00 CDT Notes: Same as Dilaudid Start Date: 04/27/18 Stop Date: 04/28/18 Status: DiscontinuedDilaudid 1 mg, 0.5 mL, Route: IM, Drug form: INJ, ONCE, Dosing Weight 176.818, kg, Priority: STAT, Start date: 04/25/18 12:55:00 CDT, Stop date: 04/25/18 12:55:00 CDT Notes: Same as Dilaudid Start Date: 04/25/18 Stop Date: 04/25/18 Status: CompletedDilaudid 0.5 mg, 0.25 mL, Route: IVP, Drug form: INJ, ONCE, Dosing Weight 176, kg, Priority: NOW, Start date:04/26/18 1:21:00 CDT, Stop date: 04/26/18 1:21:00 CDT Notes: Same as Dilaudid Start Date: 04/26/18 Stop Date: 04/26/18 Status: CompletedDilaudid 0.5 mg, 0.25 mL, Route: IVP, Drug form: INJ, Q4H, Dosing Weight 176, kg, PRN Pain Score 6-10, Priority: STAT, Start date: 04/26/18 3:02:00 CDT, Duration: 30 day, Stop date: 05/26/18 3:01:00 CDT Notes: Same as Dilaudid Start Date: 04/26/18 Stop Date: 04/26/18 Status: DiscontinuedDilaudid 0.5 mg, 0.25 mL, Route: IVP, Drug form: INJ, Q2H, Dosing Weight 176, kg, PRN Pain Score 6-10, Start date: 04/26/18 8:57:00 CDT, Duration: 30 day, Stop date: 05/26/18 8:56:00 CDT Notes: Same as Dilaudid Start Date: 04/26/18 Stop Date: 04/27/18 Status: DiscontinuedfentaNYL 50 microgram, Route: IVP, ONCE, Dosing Weight 176.818, kg, Priority: STAT, Start date: 04/25/18 12:33:00 CDT, Stop date: 04/25/18 12:33:00 CDT Start Date: 04/25/18 Stop Date: 04/25/18 Status: CompletedfentaNYL (ANES) Route: IV, Drug form: INJ, ONCE, Stop date: 04/26/18 17:14:00 CDT Start Date: 04/26/18 Stop Date: 04/26/18 Status: Completedglucagon 1 mg, Route: IM, Drug form: PDR/INJ, PRN, Dosing Weight 176, kg, PRN Blood Glucose Results, Start date: 04/25/18 21:15:00 CDT, Duration: 30 day, Stop date : 05/25/18 21:14:00 CDT Start Date: 04/25/18 Stop Date: 04/28/18 Status: Discontinuedglycopyrrolate (ANES) Route: IV, Drug form: INJ, ONCE, Stop date: 04/26/18 18:13:00 CDT Start Date: 04/26/18 Stop Date: 04/26/18 Status: Completedheparin 5,000 unit, 1 mL, Route: SUB-Q, Drug form: INJ, Q8H, Dosing Weight 176.818, kg, Start date: 180:00:00 CDT, Duration: 30 day, Stop date: 05/25/18 16:00:00 CDT Notes: porcine heparin Start Date: 04/26/18 Stop Date: 04/28/18 Status: Discontinuedhydromorphone 0.5 mg, 0.25 mL, Route: IVP, Drug form: INJ, ONCE, Dosing Weight 176, kg, PRN Pain Score 7-10, Priority: NOW, Start date: 04/27/18 0:29:00 CDT Notes: Same as Dilaudid Start Date: 04/27/18 Stop Date: 04/28/18 Status: Completedinsulin lispro 8 unit, 0.08 mL, Route: SUB-Q, Drug form: SOLN, TID-Before Meals, Dosing Weight 176, kg, PRN Blood Glucose Results, Start date: 04/25/18 21:15:00 CDT, Duration : 30 day, Stop date: 05/25/18 21:14:00 CDT Notes: (Same as: Humalog ) Roll in palms of hands gently; Do not shake ` vigorously. "Single PatientUse Only " WASTE: F/P - Black; E - Municipal Trash Bin Stable for 28 days at room temperature.Expires in days from Date Start Date: 04/25/18 Stop Date: 04/28/18 Status: Discontinuedinsulin lispro 10 unit, 0.1 mL, Route: SUB-Q, Drug form: SOLN, TID-Before Meals, Dosing Weight 176, kg, PRN Blood Glucose Results, Start date: 04/25/18 21:15:00 CDT, Duration : 30 day, Stop date: 05/25/18 21:14:00 CDT Notes: (Same as: Humalog ) Roll in palms of hands gently; Do not shake ` vigorously. "Single PatientUse Only " WASTE: F/P - Black; E - Municipal Trash Bin Stable for 28 days at room temperature.Expires in days from Date Start Date: 04/25/18 Stop Date: 04/28/18 Status: Discontinuedinsulin lispro 6 unit, 0.06 mL, Route: SUB-Q, Drug form: SOLN, TID-Before Meals, Dosing Weight 176, kg, PRN Blood Glucose Results, Start date: 04/25/18 21:15:00 CDT, Duration : 30 day, Stop date: 05/25/18 21:14:00 CDT Notes: (Same as: Humalog ) Roll in palms of hands gently; Do not shake ` vigorously. "Single PatientUse Only " WASTE: F/P - Black; E - Municipal Trash Bin Stable for 28 days at room temperature.Expires in days from Date Start Date: 04/25/18 Stop Date: 04/28/18 Status: Discontinuedinsulin lispro 2 unit, 0.02 mL, Route: SUB-Q, Drug form: SOLN, TID-Before Meals, Dosing Weight 176, kg, PRN Blood Glucose Results, Start date: 04/25/18 21:15:00 CDT, Duration : 30 day, Stop date: 05/25/18 21:14:00 CDT Notes: (Same as: Humalog ) Roll in palms of hands gently; Do not shake ` vigorously. "Single PatientUse Only " WASTE: F/P - Black; E - Municipal Trash Bin Stable for 28 days at room temperature.Expires in days from Date Start Date: 04/25/18 Stop Date: 04/28/18 Status: Discontinuedinsulin lispro 4 unit, 0.04 mL, Route: SUB-Q, Drug form: SOLN, TID-Before Meals, Dosing Weight 176, kg, PRN Blood Glucose Results, Start date: 04/25/18 21:15:00 CDT, Duration : 30 day, Stop date: 05/25/18 21:14:00 CDT Notes: (Same as: Humalog ) Roll in palms of hands gently; Do not shake ` vigorously. "Single PatientUse Only " WASTE: F/P - Black; E - Municipal Trash Bin Stable for 28 days at room temperature.Expires in days from Date Start Date: 04/25/18 Stop Date: 04/28/18 Status: DiscontinuedketOROLAC 30 mg/mL injectable solution 30 mg, 1 mL, Route: IVP, Drug form: INJ, ONCE, Dosing Weight 176.818, kg, Priority: STAT, Start date: 04/25/18 14:21:00 CDT, Stop date: 04/25/18 14:21:00 CDT Notes: (Same as:Toradol) IV bolus must be given >15 seconds. Give IM administration slowly and deeply into the muscle.Not for use > 4 days MEDICATION WASTE Product Size: 30 mgProduct Wasted: _0__ mg Start Date: 04/25/18 Stop Date: 04/25/18 Status: CompletedLactated Ringers Injection IV (ANES) 1000 mL Route: IV, Total Volume: 1,000, Start date: 04/26/18 16:13:00 CDT, Stop date: 17:13:00 CDT Start Date: 04/26/18 Stop Date: 04/26/18 Status: Completedlactulose 10 g/15 mL oral syrup 20 gm, 30 mL, Route: PO, Drug form: SYRP, ONCE, Dosing Weight 176, kg, Start date: 04/27/18 10:29:00CDT, Stop date: 04/27/18 10:29:00 CDT Notes: (Same as:Chronulac) Start Date: 04/27/18 Stop Date: 04/27/18 Status: Completedlactulose 10 g/15 mL oral syrup 20 gm, 30 ml, Route: PO, Drug form: SYRP, ONCE, Dosing Weight 176, kg, Start date: 04/28/18 13:17:00CDT, Stop date: 04/28/18 13:17:00 CDT Notes: (Same as:Chronulac) Start Date: 04/28/18 Stop Date: 04/28/18 Status: Completedlidocaine (ANES) Route: IV, Drug form: INJ, ONCE, Stop date: 04/26/18 17:14:00 CDT Start Date: 04/26/18 Stop Date: 04/26/18 Status: Completedlidocaine 2% 100 mg, 5 mL, Route: IV, Drug Form: INJ, Dosing Weight 176.818, kg, ONCE, Start date: 04/25/18 15:47:00 CDT, Stop date: 04/25/18 15:47:00 CDT Notes: Syringe (Same as: Xylocaine) Start Date: 04/25/18 Stop Date: 04/25/18 Status: Completedmethocarbamol 500 mg, 1 tab, Route: PO, Drug form: TAB, TID, Dosing Weight 176, kg, PRN Muscle Spasms, Start date:04/27/18 7:10:00 CDT, Duration: 30 day, Stop date: 7:09:00 CDT Notes: (Same as:Robaxin) Start Date: 04/27/18 Stop Date: 04/28/18 Status: Discontinuedmidazolam (ANES) Route: IV, Drug form: SOLN, ONCE, Stop date: 04/26/18 17:14:00 CDT Start Date: 04/26/18 Stop Date: 04/26/18 Status: CompletedMiraLax oral powder for reconstitution 17 gm, PO, Daily, X 15 day, # 255 gm, 0 Refill(s), Pharmacy: [facility] Start Date: 04/28/18 Stop Date: 05/13/18 Status: Completedmorphine Sulfate 4 mg, 1 mL, Route: IVP, Drug form: SOLN, ONCE, Dosing Weight 176.818, kg, Priority: STAT, Start date: 04/25/18 11:37:00 CDT, Stop date: 04/25/18 11:37:00 CDT Notes: (Same as:MORPhine Sulfate) Start Date: 04/25/18 Stop Date: 04/25/18 Status: Completedmorphine Sulfate 2 mg, 1 mL, Route: IVP, Drug form: SOLN, ONCE, Dosing Weight 176, kg, Priority: NOW, Start date: 04/25/18 22:45:00 CDT, Stop date: 04/25/18 22:45:00 CDT Start Date: 04/25/18 Stop Date: 04/25/18 Status: Completedmorphine Sulfate 2 mg, 1 mL, Route: IV, Drug form: SOLN, Q6H, Dosing Weight 176.818, kg, PRN Pain Score 6-10, Start date: 04/25/18 17:10:00 CDT, Duration: 30 day, Stop date : 05/25/18 17:09:00 CDT Start Date: 04/25/18 Stop Date: 04/26/18 Status: Discontinuedneostigmine (ANES) Route: IV, Drug form: INJ, ONCE, Stop date: 04/26/18 18:13:00 CDT Start Date: 04/26/18 Stop Date: 04/26/18 Status: CompletedNorco 10/325 oral tablet 1 tab, Route: PO, Drug Form: TAB, Dosing Weight 176, kg, ONCE, Start date: 04/25 21:16:00 CDT, Stop date: 04/25/18 21:16:00 CDT Notes: Do not exceed 4gm/day of acetaminophen. (Same as: Nixa 325/10) Start Date: 04/25/18 Stop Date: 04/25/18 Status: CompletedNorco 5/325 oral tablet 1 tab, Route: PO, Drug Form: TAB, Dosing Weight 176, kg, Q6H, PRN Pain Score 4-6 , Start date: 04/27/18 17:54:00 CDT, Duration: 30 day, Stop date: 05/27/18 17:53 :00 CDT Notes: (Same as: Nixa 325/5) Do not exceed 4gm/day of acetaminophen. Start Date: 04/27/18 Stop Date: 04/28/18 Status: DiscontinuedNS (Bolus) IV 1,000 mL, 1,000 ml/hr, Infuse Over: 1 hr, Route: IV, 1,000, Drug form: INJ, ONCE , Priority: STAT, Dosing Weight 176.818 kg, Start date: 04/25/18 11:37:00 CDT, Stop date: 04/25/18 11:37:00 CDT Start Date: 04/25/18 Stop Date: 04/25/18 Status: Completedondansetron (ANES) Route: IV, Drug form: INJ, ONCE, Stop date: 04/26/18 18:13:00 CDT Start Date: 04/26/18 Stop Date: 04/26/18 Status: Completedpropofol (ANES) Route: IV, Drug form: INJ, ONCE, Stop date: 04/26/18 17:14:00 CDT Start Date: 04/26/18 Stop Date: 04/26/18 Status: Completedrocuronium (ANES) Route: IV, Drug form: INJ, ONCE, Stop date: 04/26/18 17:04:00 CDT Start Date: 04/26/18 Stop Date: 04/26/18 Status: Completedsuccinylcholine (ANES) Route: IV, Drug form: INJ, ONCE, Stop date: 04/26/18 17:14:00 CDT Start Date: 04/26/18 Stop Date: 04/26/18 Status: Completedtramadol 50 mg oral tablet 50 mg, 1 tab, Route: PO, Drug form: TAB, Q4H, Dosing Weight 176, kg, PRN Pain Score 1-5, Start date:04/26/18 18:07:00 CDT, Duration: 30 day, Stop date: 18:06:00 CDT Notes: Not to exceed 400mg/day. (Same As: Ultram) Start Date: 04/26/18 Stop Date: 04/28/18 Status: DiscontinuedZofran 4 mg, 2 mL, Route: IV, Drug form: INJ, Q6H, Dosing Weight 176.818, kg, PRN as needed for nausea/vomiting, Start date: 04/25/18 17:13:00 CDT, Duration: 30 day , Stop date: 05/25/18 17:12:00 CDT Notes: (Same as: Zofran) MEDICATION WASTE Product Size: 4 mgProduct Wasted: ___ mg Start Date: 04/25/18 Stop Date: 04/28/18 Status: DiscontinuedZofran 4 mg, 2 mL, Route: IVP, Drug form: INJ, ONCE, Dosing Weight 176.818, kg, Priority: STAT, Start date:04/25/18 11:37:00 CDT, Stop date: 04/25/18 11:37:00 CDT Notes: (Same as: Zofran) MEDICATION WASTE Product Size: 4 mgProduct Wasted: __0_ mg Start Date: 04/25/18 Stop Date: 04/25/18 Status: Completed Results ELECTROLYTES Most recent to oldest 1 2 3 [Reference Range]: Sodium Lvl [135-145 mEq/L] 136 mEq/L 135 mEq/L 139 mEq/L (04/28/18 6:43 AM) (04/27/18 7:00 AM) (04/26/18 6:17 AM) Potassium Lvl [3.5-5.1 3.6 mEq/L 4.0 mEq/L 3.7 mEq/L mEq/L] (04/28/18 6:43 AM) (04/27/18 7:00 AM) (04/26/18 6:17 AM) Chloride Lvl [95-109 mEq/L] 103 mEq/L 104 mEq/L 104 mEq/L (04/28/18 6:43 AM) (04/27/18 7:00 AM) (04/26/18 6:17 AM) CO2 [24-32 mEq/L] 24 mEq/L 23 mEq/L 27 mEq/L (04/28/18 6:43 AM) *LOW* (04/26/18 6:17 AM) (04/27/18 7:00 AM) AGAP [10.0-20.0 mEq/L] 12.6 mEq/L 12.0 mEq/L 11.7 mEq/L (04/28/18 6:43 AM) (04/27/18 7:00 AM) (04/26/18 6:17 AM) CHEM PANEL Most recent to oldest 1 2 3 [Reference Range]: Creatinine Lvl [0.50-1.40 0.61 mg/dL 0.65 mg/dL 0.56 mg/dL mg/dL] (04/28/18 6:43 AM) (04/27/18 7:00 AM) (04/26/18 6:17 AM) eGFR 124 mL/min/1.73m2 1 121 mL/min/1.73m2 2 128 mL/min/1.73m2 3 *NA* *NA* *NA* (04/28/18 6:43 AM) (04/27/18 7:00 AM) (04/26/18 6:17 AM) BUN [7-22 mg/dL] 10 mg/dL 11 mg/dL 12 mg/dL (04/28/18 6:43 AM) (04/27/18 7:00 AM) (04/26/18 6:17 AM) B/C Ratio [6-25] 23 (04/25/18 11:53 AM) Glucose Lvl [70-99 mg/dL] 127 mg/dL 139 mg/dL 108 mg/dL *HI* *HI* *HI* (04/28/18 6:43 AM) (04/27/18 7:00 AM) (04/26/18 6:17 AM) Total Protein [6.4-8.4 8.9 g/dL g/dL] *HI* (04/25/18 11:53 AM) Albumin Lvl [3.5-5.0 g/dL] 3.5 g/dL (04/25/18 11:53 AM) Globulin [2.7-4.2 g/dL] 5.4 g/dL *HI* (04/25/18 11:53 AM) A/G Ratio [0.7-1.6] 0.6 *LOW* (04/25/18 11:53 AM) Calcium Lvl [8.5-10.5 8.6 mg/dL 8.8 mg/dL 8.8 mg/dL mg/dL] (04/28/18 6:43 AM) (04/27/18 7:00 AM) (04/26/18 6:17 AM) Magnesium Lvl [1.8-2.4 1.7 mg/dL mg/dL] *LOW* (04/25/18 11:53 AM) ALT [0-65 unit/L] 69 unit/L *HI* (04/25/18 11:53 AM) AST [0-37 unit/L] 43 unit/L *HI* (04/25/18 11:53 AM) Alk Phos [39-136 unit/L] 106 unit/L (04/25/18 11:53 AM) Bili Total [0.2-1.3 mg/dL] 0.3 mg/dL (04/25/18 11:53 AM) Lipase Lvl [73-393 unit/L] 135 unit/L (04/25/18 11:53 AM) 1Result Comment: The eGFR is calculated [...] eGFR should be multiplied by the estimated BMI.3Result Comment: The eGFR is calculated using the [...] eGFR should be multiplied by the estimated BMI.HEMATOLOGY Most recent to oldest 1 2 3 [Reference Range]: WBC [3.7-10.4 K/CMM] 8.2 K/CMM 9.0 K/CMM 6.8 K/CMM (04/28/18 6:43 AM) (04/27/18 7:00 AM) (04/26/18 6:17 AM) RBC [4.70-6.10 M/CMM] 4.31 M/CMM 4.36 M/CMM 4.24 M/CMM *LOW* *LOW* *LOW* (04/28/18 6:43 AM) (04/27/18 7:00 AM) (04/26/18 6:17 AM) Hgb [14.0-18.0 g/dL] 13.1 g/dL 12.8 g/dL 12.9 g/dL *LOW* *LOW* *LOW* (04/28/18 6:43 AM) (04/27/18 7:00 AM) (04/26/18:17 AM) Hct [42.0-54.0 %] 39.5 % 39.4 % 38.6 % *LOW* *LOW* *LOW* (04/28/18 6:43 AM) (04/27/18 7:00 AM) (04/26/18 6:17 AM) MCV [80.0-94.0 fL] 91.8 fL 90.4 fL 90.9 fL (04/28/18 6:43 AM) (04/27/18 7:00 AM) (04/26/18 6:17 AM) MCH [27.0-31.0 pg] 30.3 pg 29.4 pg 30.3 pg (04/28/18 6:43 AM) (04/27/18 7:00 AM) (04/26/18 6: AM) MCHC [32.0-36.0 g/dL] 33.0 g/dL 32.5 g/dL 33.3 g/dL (04/28/18 6:43 AM) (04/27/18 7:00 AM) (04/26/18 6:17 AM) RDW [11.5-14.5 %] 14.2 % 14.0 % 13.9 % (04/28/18 6:43 AM) (04/27/18 7:00 AM) (04/26/18 6:17 AM) MPV [7.4-10.4 fL] 10.3 fL 9.9 fL 10.6 fL (04/28/18 6:43 AM) (04/27/18 7:00 AM) *HI* (04/26/18:17 AM) Platelet [133-450 K/CMM] 173 K/CMM 179 K/CMM 170 K/CMM (04/28/18 6:43 AM) (04/27/18 7:00 AM) (04/26/18 6:17 AM) Segs [45.0-75.0 %] 60.9 % 72.6 % 61.5 % (04/28/18 6:43 AM) (04/27/18 7:00 AM) (04/26/18 6:17 AM) Lymphocytes [20.0-40.0 %] 29.4 % 20.5 % 30.0 % (04/28/18 6:43 AM) (04/27/18 7:00 AM) (04/26/18 6:17 AM) Monocytes [2.0-12.0 %] 7.8 % 6.3 % 5.8 % (04/28/18 6:43 AM) (04/27/18 7:00 AM) (04/26/18 6:17 AM) Eosinophils [0.0-4.0 %] 1.4 % 0.4 % 2.2 % (04/28/18 6:43 AM) (04/27/18 7:00 AM) (04/26/18 6:17 AM) Basophils [0.0-1.0 %] 0.5 % 0.2 % 0.5 % (04/28/18 6:43 AM) (04/27/18 7:00 AM) (04/26/18 6:17 AM) Neutrophils # [1.5-8.1 5.0 K/CMM 6.5 K/CMM 4.2 K/CMM K/CMM] (04/28/18 6:43 AM) (04/27/18 7:00 AM) (04/26/18 6:17 AM) Lymphocytes # [1.0-5.5 2.4 K/CMM 1.8 K/CMM 2.0 K/CMM K/CMM] (04/28/18 6:43 AM) (04/27/18 7:00 AM) (04/26/18 6:17 AM) Monocytes # [0.0-0.8 K/CMM] 0.6 K/CMM 0.6 K/CMM 0.4 K/CMM (04/28/18 6:43 AM) (04/27/18 7:00 AM) (04/26/18 6:17 AM) Eosinophils # [0.0-0.5 0.1 K/CMM 0.0 K/CMM 0.1 K/CMM K/CMM] (04/28/18 6:43 AM) (04/27/18 7:00 AM) (04/26/18 6:17 AM) Basophils # [0.0-0.2 K/CMM] 0.0 K/CMM 0.0 K/CMM 0.0 K/CMM (04/28/18 6:43 AM) (04/27/18 7:00 AM) (04/26/18 6:17 AM) Immunizations No data available for this section Procedures No data available for this section Social History Social History Type Response Alcohol Past Smoking Status Current some day smoker; Exposure to Tobacco Smoke None; Cigarette Smoking Last 365 Days Yes; Reg Smoking Cessation Counseling Yes entered on: 04/25/18 Assessment and Plan Extracted from: Title: Surgery Author: Evonne Molina DO Date: 04/27/18 SURGERY [...] Robaxin to help with his postoperative pain. Louis garzon cannot get Toradol as he has some sort of swelling reaction to aspirin. Patient can be discharged from our standpoint once pain is controlled. He needs strict alcohol cessation. He also needs signi ficant weight loss secondary to intraoperative findings of severe fatty liver as well as cirrhosis. Extracted from: Title: Operative Report Author: Yancy South DO Date: 04/26/18 DEPARTMENT OF SURGERY Operative Report DATE OF SURGERY: 04/26/2018 PREOPERATIVE DIAGNOSIS: Biliary dyskinesia POSTOPERATIVE DIAGNOSIS: Biliary dyskinesia Chronic cholecystitis Hepatomegaly and cirrohosis PROCEDURE PERFORMED: Laparoscopic cholecystectomy SURGEON: Yancy South D.O. CARPET CLEANER: Kieran Brown M.D. Assisted in exposure and [...] umbilicus. The fascia was grasped and a Veress nee dle inserted into the peritoneal cavity with ease. The abdomen was insufflated with carbon dioxide to a pressure of 15 mmHg without complication. The abdomen was then entered using a 5-mm Optiview troca r. The laparoscope was introduced and the peritoneal cavity was inspected. No injuries were identified during initial entry into the abdomen. The patient had hepatomegaly with macronodular disease of th e liver consistent with cirrhosis. There was no ascites. The gallbladder was distended. Under direct vision, three 5-mm trocars were placed in the sub- xiphoid location and along the right lateral abdome n. A 12-mm trocar was re-placed at the umbilicus. The liver was stiff and difficult to lift. The gallbladder was grasped at the fundus and retracted superiorly and anteriorly. Omental adhesions were dis sected off the gallbladder with a hook electrocautery all the way down to the infundibulum. There were dilated vessels within the omental adhesions due to suspected portal hypertension. The infundibulum was retracted towards the right lower quadrant. The peritoneum over the infundibulum and cystic duct was incised and reflected medially and laterally along the gallbladder wall. An enlarged Calot lymph node was dissected down to expose the cystic artery. The cystic duct and cystic artery were identified and dissected circumferentially. Fat within the triangle of Calot was taken down. The dissection w as continued until the critical view of safety was identified. The anatomy was very clear as we could see only two structures leading to the gallbladder. The cystic duct was double clipped proximally an d single clipped distally and divided. The artery was likewise clipped and divided. The gallbladder was removed from the liver bed with Bovie electrocautery, placed in an Endocatch bag and removed throu gh the 12-mm trocar site. The abdomen was suctioned and irrigated until clear. Small oozing from the liver bed was catuerized. The gallbladder fossa was reinspected where no active bleeding was seen. We then reinspected the cystic duct and artery stumps. The clips were intact. No leaks from the stumps of the cystic duct or cystic artery were seen. 10 ml of floseal was placed over the gallbladder fossa . The umbilical fascial defect was closed using interrupted 0 Vicryl sutures on a suture passer device. The abdomen was desufflated and the trocars were removed. The skin at all trocar sites was closed with 4-0 Monocryl. Dressing glue was applied. The patient tolerated the procedure well. The patient was subsequently extubated and transferred to recovery room in good condition. All needle, sponge, and instrument counts were correct prior to and after skin closure. Extracted from: Title: Surgery Consultation Note Author: Kieran Brown MD [...] Regarding diagnosis, Regarding treatment, Regarding medications. 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 Patient pain re-created with Kinevac injection. Assessment and plan 42-year-old male with 1. Acute on chronic pain-patient has severe pain requiring to be admitted for pain control patient is already on large amounts of Nixa at home and his pain is still [...]
--- OUTSIDE RECORDS SUMMARY | 2019-04-13 21:58 | XMS REPORT | Summary of Care ---
:1975 Author Organization [facility] [place] Address [address] [place] [address] Encounter HQ Encntr_alias(FIN) [id number] Date(s): 09/04/18 - 09/04/18 [facility] [place] [address] [place] [address]- [phone] Attending Physician: Janell Shine MD Vital Signs No data available for this section Problem List Condition Effective Dates Status Health Status Informant Acute abdominal pain(Confirmed) Active Diabetes(Confirmed) Active Morbid obesity(Confirmed) Active Preop cardiovascular exam(Confirmed) Active Allergies, Adverse Reactions, Alerts Substance Reaction Severity Status aspirin Active Medications No data available for this section Results No data available for this section Immunizations No data available for this section Procedures No data available for this section Social History Social History Type Response Alcohol Past Smoking Status Current some day smoker; Exposure to Tobacco Smoke None; Cigarette Smoking Last 365 Days Yes; Reg Smoking Cessation Counseling Yes entered on: 03/22/19 Assessment and Plan No data available for this section
--- OUTSIDE RECORDS SUMMARY | 2019-04-13 21:58 | XMS REPORT | Summary of Care ---
:1975 Author Organization [facility] [place] Address [address] [place] [address] Encounter HQ Encntr_alisylvia(FIN) [id number] Date(s): 04/06/18 - 04/06/18 [facility] [place] [address] [place] [address]- [phone] Discharge Disposition: Home or Self Care Attending Physician: Janell Shine MD Vital Signs Most recent to oldest [Reference Range]: 1 Height 182.88 cm (04/06/18 10:44 AM) Blood Pressure [90-140/60-90 mmHg] 126/61 mmHg (04/06/18 10:44 AM) Peripheral Pulse Rate [60-100 bpm] 85 bpm (04/06/18 10:44 AM) Weight 185.455 kg (04/06/18 10:44 AM) Body Mass Index 55.45 m2 (04/06/18 10:44 AM) Problem List Condition Effective Dates Status Health Status Informant Acute abdominal pain(Confirmed) Active Diabetes(Confirmed) Active Morbid obesity(Confirmed) Active Preop cardiovascular exam(Confirmed) Active Allergies, Adverse Reactions, Alerts Substance Reaction Severity Status aspirin Active Medications No Known Medications Results No data available for this section Immunizations No data available for this section Procedures No data available for this section Social History Social History Type Response Alcohol Past Smoking Status Current some day smoker; Exposure to Tobacco Smoke None; Cigarette Smoking Last 365 Days Yes; Reg Smoking Cessation Counseling Yes entered on: 04/25/18 Assessment and Plan No data available for this section
--- OUTSIDE RECORDS SUMMARY | 2019-04-13 21:58 | XMS REPORT | Summary of Care ---
:1975 Author Organization [facility] Address [address] [place] [address] Encounter HQ Rubensntr_kinjal(FIN) [id number] Date(s): 04/25/18 - 04/25/18 [facility] [address] [place] [address]- [phone] Discharge Disposition: Home or Self Care Attending Physician: Cornell Bermeo MD Vital Signs Most recent to oldest [Reference Range]: 1 Height 182.88 cm (04/25/18 10:26 AM) Blood Pressure [90-140/60-90 mmHg] 125/70 mmHg (04/25/18 10:26 AM) Peripheral Pulse Rate [60-100 bpm] 76 bpm (04/25/18 10:26 AM) Weight 183.807 kg (04/25/18 10:26 AM) Body Mass Index 54.96 m2 (04/25/18 10:26 AM) Problem List Condition Effective Dates Status [...]
--- OUTSIDE RECORDS SUMMARY | 2019-04-13 21:58 | XMS REPORT | Summary of Care ---
:1975 Author Organization [facility]enterology [place] Address [address] [place] [address] Encounter HQ Daniel_kinjal(FIN) [id number] Date(s): 03/22/19 - 03/22/19 [facility] [place] [address] [place] [address]- [phone] Discharge Disposition: Home or Self Care Attending Physician: Janell Shine MD Vital Signs Most recent to oldest [Reference Range]: 1 Height 182.88 cm (03/22/19 9:52 AM) Blood Pressure [90-140/60-90 mmHg] 135/80 mmHg (03/22/19 9:52 AM) Peripheral Pulse Rate [60-100 bpm] 78 bpm (03/22/19 9:52 AM) Weight 161.364 kg (03/22/19 9:52 AM) Body Mass Index 48.25 m2 (03/22/19 9:52 AM) Problem List Condition Effective Dates Status Health Status Informant Acute abdominal pain(Confirmed) Active Diabetes(Confirmed) Active Morbid obesity(Confirmed) Active Preop cardiovascular exam(Confirmed) Active Allergies, Adverse Reactions, Alerts Substance Reaction Severity Status aspirin Active Medications acetaminophen-hydrocodone 325 mg-10 mg oral tablet 1 tab, PO, Q4H, PRN Pain, # 30 tab, 0 Refill(s) Start Date: 03/22/19 Stop Date: 03/27/19 Status: OrderedNovoLOG FlexPen SUB-Q, TID-Before Meals, 0 Refill(s) Start Date: 03/22/19 Status: Ordered Results No data available for this section [...]
--- OUTSIDE RECORDS SUMMARY | 2019-04-13 21:59 | XMS REPORT | Summary of Care ---
:1975 Author Organization [facility] Address [address], [place] [address]- Encounter HQ [email or web address]_[email or web address](FIN) [id number] Date(s): 04/06/18 - 04/09/18 [facility] [address] [place] [address]- Encounter Diagnosis Other specified diseases of gallbladder (Final) - 04/25/18 Portal hypertension (Final) - Morbid (severe) obesity due to excess calories (Final) - Alcoholic cirrhosis of liver without ascites (Final) - Body mass index (BMI) 50-59.9 , adult (Final) - Major depressive disorder, single episode, unspecified (Final) - Alcohol abuse, uncomplicated (Final) - Type 2 diabetes mellitus without complications (Final) - Nicotine dependence, cigarettes, uncomplicated (Final) - 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) - penitentiary (current) use of oral hypoglycemic drugs (Final) - Discharge Disposition: Home or Self Care Attending Physician: Roberta Webb MD Admitting Physician: Roberta Webb MD Vital Signs Most recent to oldest 1 2 3 [Reference Range]: Height 182.88 cm 182.88 cm (04/06/18 5:10 PM) (04/06/18 11:25 AM) Temperature Oral [96.4-99.1 98.3 DegF 98.3 DegF 98.4 DegF DegF] (04/09/18 7:45 AM) (04/09/18 3:13 AM) (04/08/18 11:13 PM) Blood Pressure [90-140/60-90 131/79 mmHg 124/76 mmHg 134/77 mmHg mmHg] (04/09/18 7:45 AM) (04/09/18 3:13 AM) (04/08/18 11:13 PM) Respiratory Rate [14-20 BRMIN] 18 BRMIN 18 BRMIN 18 BRMIN (04/09/18 7:45 AM) (04/09/18 3:13 AM) (04/08/18 11:13 PM) Peripheral Pulse Rate [60-100 68 bpm 63 bpm 62 bpm bpm] (04/09/18 7:45 AM) (04/09/18 3:13 AM) (04/08/18 11:13 PM) Weight 184.091 kg 188.636 kg (04/06/18 5:10 PM) (04/06/18 11:25 AM) Body Mass Index 55.04 m2 56.4 m2 (04/06/18 5:10 PM) (04/06/18 11:25 AM) Problem List Condition Effective Dates Status Health Status Informant Acute abdominal pain(Confirmed) Active Diabetes(Confirmed) Active Morbid obesity(Confirmed) Active Preop cardiovascular exam(Confirmed) Active Allergies, Adverse Reactions, Alerts Substance Reaction Severity Status aspirin Active Medications acetaminophen 650 mg, 2 tab, Route: PO, Drug form: TAB, Q4H, Dosing Weight 188.636, kg, PRN Pain 1-3/Temp > 100.4 F, Start date: 04/06/18 16:56:00 CDT, Duration: 30 day , Stop date: 05/06/18 16:55:00 CDT Notes: Do not exceed 4 gm/day. (Same as: Tylenol) Start Date: 04/06/18 Stop Date: 04/09/18 Status: Discontinuedacetaminophen-hydrocodone 325 mg-5 mg oral tablet 1 tab, Route: PO, Drug Form: TAB, Dosing Weight 188.636, kg, Q4H, PRN Pain Score 4-6, Start date: 04/06/18 16:56:00 CDT, Duration: 30 day, Stop date: 05/06 16:55:00 CDT Notes: (Same as: [place] 325/5) Do not exceed 4gm/day of acetaminophen. Start Date: 04/06/18 Stop Date: 04/09/18 Status: DiscontinuedCarafate 1 gm, 1 tab, Route: PO, Drug form: TAB, QID, Dosing Weight 184.091, kg, Start date: 04/06/18 21:00:00 CDT, Duration: 30 day, Stop date: 05/06/18 17:00:00 CDT Notes: May interfere w/enteral feeds - Take 1 hr before or 2 hr after antacids , dairy pdt, meals & minerals - On empty stomach.For patients unable to swallow tablet, dissolve in 10mL - 30mL of water or juice and stir before giving. (Same As: Carafate) Start Date: 04/06/18 Stop Date: 04/09/18 Status: DiscontinuedDextrose 50% Syringe 12.5 gm, 25 mL, Route: IVP, Drug Form: INJ, Dosing Weight 184.091, kg, PRN, PRN Blood Glucose Results, Start date: 04/07/18 9:09:00 CDT, Duration: 30 day, Stop date: 05/07/18 9:08:00 CDT Start Date: 04/07/18 Stop Date: 04/09/18 Status: DiscontinuedDextrose 50% Syringe 25 gm, 50 mL, Route: IVP, Drug Form: INJ, Dosing Weight 184.091, kg, PRN, PRN Blood Glucose Results,Start date: 04/07/18 9:09:00 CDT, Duration: 30 day, Stop date: 05/07/18 9:08:00 CDT Start Date: 04/07/18 Stop Date: 04/09/18 Status: DiscontinuedDulcolax Laxative 10 mg, 2 tab, Route: PO, Drug form: ECTAB, Daily, Dosing Weight 184.091, kg, PRN Constipation, Startdate: 04/07/18 21:54:00 CDT, Duration: 30 day, Stop date : 05/07/18 21:53:00 CDT Notes: (Same As: Dulcolax, Correctol) (Do Not Crush) "Do Not Crush" Start Date: 04/07/18 Stop Date: 04/09/18 Status: DiscontinuedfentaNYL (ANES) Route: IV, Drug form: INJ, ONCE, Stop date: 04/08/18 9:14:00 CDT Start Date: 04/08/18 Stop Date: 04/08/18 Status: Completedgabapentin 200 mg, 2 cap, Route: PO, Drug form: CAP, BID, Dosing Weight 184.091, kg, Start date: 04/07/18 21:00:00 CDT, Duration: 30 day, Stop date: 05/07/18 9:00:00 CDT Notes: (Same as: Neurontin) Start Date: 04/07/18 Stop Date: 04/08/18 Status: Discontinuedgabapentin 100 mg oral capsule 100 mg, 1 cap, Route: PO, Drug form: CAP, Q8H, Dosing Weight 184.091, kg, Start date: 04/08/18 16:00:00 CDT, Duration: 30 day, Stop date: 05/08/18 8:00:00 CDT Notes: (Same as: Neurontin) Start Date: 04/08/18 Stop Date: 04/08/18 Status: Discontinuedgabapentin 100 mg oral capsule 100 mg, 1 cap, Route: PO, Drug form: CAP, Q2PM, Dosing Weight 184.091, kg, Start date: 04/09/18 14:00:00 CDT, Duration: 30 day, Stop date: 05/08/18 14:00: 00 CDT Notes: (Same as: Neurontin) Start Date: 04/09/18 Stop Date: 04/09/18 Status: Canceledgabapentin 300 mg oral capsule 300 mg, 1 cap, Route: PO, Drug form: CAP, Q12H, Dosing Weight 184.091, kg, ( CrCl 30 - 59 ml/min), Start date: 04/08/18 22:00:00 CDT, Duration: 30 day, Stop date: 05/08/18 21:00:00 CDT Notes: (Same as: Neurontin) Start Date: 04/08/18 Stop Date: 04/09/18 Status: Discontinuedgabapentin 300 mg oral capsule 300 mg=1 cap, PO, TID, # 90 cap, 0 Refill(s), Pharmacy: [facility] Start Date: 04/09/18 Status: OrderedGI cocktail (aluminum hydroxide/magnesium hydroxide/lidocaine/ simethicone) 30 ml, Route: PO, Drug Form: SUSP, Dosing Weight 184.091, kg, ONCE, Routine, Start date: 04/07/18 11:49:00 CDT, Stop date: 04/07/18 11:49:00 CDT Notes: G.I. Cocktail - aluminum hydroxide/magnesium hydroxide/lidocaine/ simethicone Start Date: 04/07/18 Stop Date: 04/07/18 Status: Completedglucagon 1 mg, Route: IM, Drug form: PDR/INJ, PRN, Dosing Weight 184.091, kg, PRN Blood Glucose Results, Start date: 04/07/18 9:09:00 CDT, Duration: 30 day, Stop date: 05/07/18 9:08:00 CDT Start Date: 04/07/18 Stop Date: 04/09/18 Status: Discontinuedhydromorphone 1 mg, 0.5 mL, Route: IM, Drug form: INJ, Q4H, Dosing Weight 184.091, kg, PRN Pain Score 7-10, Start date: 04/06/18 18:00:00 CDT, Duration: 30 day, Stop date : 05/06/18 17:59:00 CDT Notes: Same as Dilaudid Start Date: 04/06/18 Stop Date: 04/07/18 Status: Discontinuedinsulin lispro 10 unit, 0.1 mL, Route: SUB-Q, Drug form: SOLN, TID-Before Meals, Dosing Weight 184.091, kg, PRN Blood Glucose Results, Start date: 04/07/18 9:09:00 CDT, Duration: 30 day, Stop date: 05/07/18 9:08:00 CDT Notes: (Same as: Humalog ) Roll in palms of hands gently; Do not shake ` vigorously. "Single PatientUse Only " WASTE: F/P - Black; E - Municipal Trash Bin Stable for 28 days at room temperature.Expires in days from Date Start Date: 04/07/18 Stop Date: 04/09/18 Status: Discontinuedinsulin lispro 8 unit, 0.08 mL, Route: SUB-Q, Drug form: SOLN, TID-Before Meals, Dosing Weight 184.091, kg, PRN Blood Glucose Results, Start date: 04/07/18 9:09:00 CDT, Duration: 30 day, Stop date: 05/07/18 9:08:00 CDT Notes: (Same as: Humalog ) Roll in palms of hands gently; Do not shake ` vigorously. "Single PatientUse Only " WASTE: F/P - Black; E - Municipal Trash Bin Stable for 28 days at room temperature.Expires in days from Date Start Date: 04/07/18 Stop Date: 04/09/18 Status: Discontinuedinsulin lispro 4 unit, 0.04 mL, Route: SUB-Q, Drug form: SOLN, TID-Before Meals, Dosing Weight 184.091, kg, PRN Blood Glucose Results, Start date: 04/07/18 9:09:00 CDT, Duration: 30 day, Stop date: 05/07/18 9:08:00 CDT Notes: (Same as: Humalog ) Roll in palms of hands gently; Do not shake ` vigorously. "Single PatientUse Only " WASTE: F/P - Black; E - Municipal Trash Bin Stable for 28 days at room temperature.Expires in days from Date Start Date: 04/07/18 Stop Date: 04/09/18 Status: Discontinuedinsulin lispro 2 unit, 0.02 mL, Route: SUB-Q, Drug form: SOLN, TID-Before Meals, Dosing Weight 184.091, kg, PRN Blood Glucose Results, Start date: 04/07/18 9:09:00 CDT, Duration: 30 day, Stop date: 05/07/18 9:08:00 CDT Notes: (Same as: Humalog ) Roll in palms of hands gently; Do not shake ` vigorously. "Single PatientUse Only " WASTE: F/P - Black; E - Municipal Trash Bin Stable for 28 days at room temperature.Expires in days from Date Start Date: 04/07/18 Stop Date: 04/09/18 Status: Discontinuedinsulin lispro 3 unit, 0.03 mL, Route: SUB-Q, Drug form: SOLN, Bedtime, Dosing Weight 184.091, kg, PRN Blood Glucose Results, Start date: 04/07/18 9:09:00 CDT, Duration: 30 day, Stop date: 05/07/18 9:08:00 CDT Notes: (Same as: Humalog ) Roll in palms of hands gently; Do not shake ` vigorously. "Single PatientUse Only " WASTE: F/P - Black; E - Municipal Trash Bin Stable for 28 days at room temperature.Expires in days from Date Start Date: 04/07/18 Stop Date: 04/09/18 Status: Discontinuedinsulin lispro 2 unit, 0.02 mL, Route: SUB-Q, Drug form: SOLN, Bedtime, Dosing Weight 184.091, kg, PRN Blood Glucose Results, Start date: 04/07/18 9:09:00 CDT, Duration: 30 day, Stop date: 05/07/18 9:08:00 CDT Notes: (Same as: Humalog ) Roll in palms of hands gently; Do not shake ` vigorously. "Single PatientUse Only " WASTE: F/P - Black; E - Municipal Trash Bin Stable for 28 days at room temperature.Expires in days from Date Start Date: 04/07/18 Stop Date: 04/09/18 Status: Discontinuedinsulin lispro 1 unit, 0.01 mL, Route: SUB-Q, Drug form: SOLN, Bedtime, Dosing Weight 184.091, kg, PRN Blood Glucose Results, Start date: 04/07/18 9:09:00 CDT, Duration: 30 day, Stop date: 05/07/18 9:08:00 CDT Notes: (Same as: Humalog ) Roll in palms of hands gently; Do not shake ` vigorously. "Single PatientUse Only " WASTE: F/P - Black; E - Municipal Trash Bin Stable for 28 days at room temperature.Expires in days from Date Start Date: 04/07/18 Stop Date: 04/09/18 Status: Discontinuedinsulin lispro 6 unit, 0.06 mL, Route: SUB-Q, Drug form: SOLN, TID-Before Meals, Dosing Weight 184.091, kg, PRN Blood Glucose Results, Start date: 04/07/18 9:09:00 CDT, Duration: 30 day, Stop date: 05/07/18 9:08:00 CDT Notes: (Same as: Humalog ) Roll in palms of hands gently; Do not shake ` vigorously. "Single PatientUse Only " WASTE: F/P - Black; E - Municipal Trash Bin Stable for 28 days at room temperature.Expires in days from Date Start Date: 04/07/18 Stop Date: 04/09/18 Status: Discontinuedinsulin lispro 4 unit, 0.04 mL, Route: SUB-Q, Drug form: SOLN, Bedtime, Dosing Weight 184.091, kg, PRN Blood Glucose Results, Start date: 04/07/18 9:09:00 CDT, Duration: 30 day, Stop date: 05/07/18 9:08:00 CDT Notes: (Same as: Humalog ) Roll in palms of hands gently; Do not shake ` vigorously. "Single PatientUse Only " WASTE: F/P - Black; E - Municipal Trash Bin Stable for 28 days at room temperature.Expires in days from Date Start Date: 04/07/18 Stop Date: 04/09/18 Status: DiscontinuedLactated Ringers Injection IV (ANES) 1000 mL Route: IV, Total Volume: 1,000, Start date: 04/08/18 8:55:00 CDT, Stop date: 09/24 9:55:00 CDT Start Date: 04/08/18 Stop Date: 04/08/18 Status: Completedlactulose 10 g/15 mL oral syrup 20 gm, 30 mL, Route: PO, Drug form: SYRP, ONCE, Dosing Weight 184.091, kg, Start date: 04/09/18 7:38:00 CDT, Stop date: 04/09/18 7:38:00 CDT Notes: (Same as:Chronulac) Start Date: 04/09/18 Stop Date: 04/09/18 Status: Completedlidocaine (ANES) Route: IV, Drug form: INJ, ONCE, Stop date: 04/08/18 9:14:00 CDT Start Date: 04/08/18 Stop Date: 04/08/18 Status: Completedmetoclopramide 10 mg oral tablet 10 mg=1 tab, PO, Q6H, PRN as needed for nausea, X 14 day, # 30 tab, 0 Refill(s) , Pharmacy: [facility] Start Date: 04/09/18 Stop Date: 04/23/18 Status: CompletedMiraLax 17 gm, 1 pkt, Route: PO, Drug form: PWDR, Daily, Dosing Weight 184.091, kg, Start date: 04/08/18 9:00:00 CDT, Duration: 30 day, Stop date: 05/07/18 9:00:00 CDT Notes: Dissolve in 8 oz of water or juice.(Same as: Miralax) Start Date: 04/08/18 Stop Date: 04/09/18 Status: DiscontinuedMiraLax 17 gm, Route: PO, Daily, Dosing Weight 184.091, kg, Start date: 04/09/18 9:00: 00 CDT, Duration: 30 day, Stop date: 05/08/18 9:00:00 CDT Start Date: 04/09/18 Stop Date: 04/09/18 Status: Deletedmorphine Sulfate 4 mg, 1 mL, Route: IVP, Drug form: SOLN, Q4H, Dosing Weight 184.091, kg, PRN Pain Score 7-10, Start date: 04/07/18 10:38:00 CDT, Duration: 30 day, Stop date : 05/07/18 10:37:00 CDT Notes: (Same as:MORPhine Sulfate) Start Date: 04/07/18 Stop Date: 04/08/18 Status: Discontinuedmorphine Sulfate 4 mg, Route: IVP, ONCE, Dosing Weight 188.636, kg, Priority: STAT, Start date: 04/06/18 12:37:00 CDT, Stop date: 04/06/18 12:37:00 CDT Start Date: 04/06/18 Stop Date: 04/06/18 Status: Completedmorphine Sulfate 2 mg, 1 mL, Route: IVP, Drug form: SOLN, Q4H, Dosing Weight 188.636, kg, PRN Pain Score 7-10, Start date: 04/06/18 16:56:00 CDT, Duration: 30 day, Stop date : 05/06/18 16:55:00 CDT Start Date: 04/06/18 Stop Date: 04/06/18 Status: Discontinuedmorphine Sulfate 4 mg, 1 mL, Route: IVP, Drug form: SOLN, ONCE, Dosing Weight 188.636, kg, Priority: STAT, Start date: 04/06/18 14:52:00 CDT, Stop date: 04/06/18 14:52:00 CDT Notes: (Same as:MORPhine Sulfate) Start Date: 04/06/18 Stop Date: 04/06/18 Status: Completedmorphine Sulfate 4 mg, Route: IVP, ONCE, Dosing Weight 188.636, kg, Priority: STAT, Start date: 04/06/18 13:04:00 CDT, Stop date: 04/06/18 13:04:00 CDT Start Date: 04/06/18 Stop Date: 04/06/18 Status: Completedmorphine Sulfate 6 mg, 1.5 mL, Route: IVP, Drug form: SOLN, Q4H, Dosing Weight 184.091, kg, PRN Pain Score 7-10, Start date: 04/08/18 10:30:00 CDT, Duration: 30 day, Stop date : 05/08/18 10:29:00 CDT Notes: (Same as:MORPhine Sulfate) Start Date: 04/08/18 Stop Date: 04/09/18 Status: DiscontinuedNorco 10/325 oral tablet 2 tab, PO, TID, PRN for pain, 0 Refill(s) Start Date: 04/06/18 Stop Date: 04/28/18 Status: DiscontinuedNorco 5/325 oral tablet 2 tab, Route: PO, Drug Form: TAB, Dosing Weight 184.091, kg, Q4H, PRN Pain Score 4-6, Start date: 04/06/18 18:02:00 CDT, Duration: 30 day, Stop date: 05/06 18:01:00 CDT Notes: (Same as: [place] 325/5) Do not exceed 4gm/day of acetaminophen. Start Date: 04/06/18 Stop Date: 04/07/18 Status: DiscontinuedOmnipaque 300 injectable solution 100 mL, Route: IVP, Drug Form: SOLN, Dosing Weight 188.636, kg, ONCALL, GFR &gt ; 45 mL/min, STAT, Start date: 04/06/18 13:07:00 CDT, Duration: 1 doses or times Notes: (Same as:Omnipaque 300).WASTE: F/P - Black; E - Municipal Trash Bin Start Date: 04/06/18 Stop Date: 04/06/18 Status: Completedondansetron 4 mg, 2 mL, Route: IVP, Drug form: INJ, Q6H, Dosing Weight 188.636, kg, PRN Nausea & Vomiting, Start date: 04/06/18 16:56:00 CDT, Duration: 30 day, Stop date: 05/06/18 16:55:00 CDT Notes: (Same as: [place]) MEDICATION WASTE Product Size: 4 mgProduct Wasted: ___ mg Start Date: 04/06/18 Stop Date: 04/09/18 Status: DiscontinuedoxyCODONE 5 mg oral tablet 10 mg, 2 tab, Route: PO, Drug form: TAB, Q4H, Dosing Weight 184.091, kg, PRN Pain Score 4-6, Start date: 04/08/18 10:30:00 CDT, Duration: 30 day, Stop date: 05/08/18 10:29:00 CDT Notes: (Same as: Roxicodone) Start Date: 04/08/18 Stop Date: 04/09/18 Status: DiscontinuedoxyCODONE 5 mg oral tablet 5 mg, 1 tab, Route: PO, Drug form: TAB, Q4H, Dosing Weight 184.091, kg, PRN Pain Score 4-6, Start date: 04/07/18 10:38:00 CDT, Duration: 30 day, Stop date: 05/07/18 10:37:00 CDT Notes: (Same as: Roxicodone) Start Date: 04/07/18 Stop Date: 04/08/18 Status: Discontinuedpropofol (ANES) 10 mg Route: IV, Drug form: INJ, Start date: 04/08/18 8:59:00 CDT, Stop date: 9:59:00 CDT Start Date: 04/08/18 Stop Date: 04/08/18 Status: CompletedProtonix 40 mg, 1 tab, Route: PO, Drug form: ECTAB, Before Dinner, Dosing Weight 184.091 , kg, Start date: 04/07/18 16:30:00 CDT, Duration: 30 day, Stop date: 05/06/18 16:30:00 CDT Notes: Tablet should not be chewed or crushed.(Same as: Protonix) Start Date: 04/07/18 Stop Date: 04/09/18 Status: DiscontinuedReglan 10 mg, 2 mL, Route: IVP, Drug form: INJ, Q6H, Dosing Weight 184.091, kg, Start date: 04/08/18 12:00:00 CDT, Duration: 3 day, Stop date: 04/11/18 6:00:00 CDT Notes: (Same as: Reglan) Start Date: 04/08/18 Stop Date: 04/09/18 Status: DiscontinuedReglan 10 mg, 2 tab, Route: PO, Drug form: TAB, Q6H, Start date: 04/09/18 12:00:00 CDT , Stop date: 04/11/1812:00:00 CDT Notes: (Same as: Reglan) Take 30 min before meals Start Date: 04/09/18 Stop Date: 04/09/18 Status: DiscontinuedSaline Flush 0.9% 10 ml, Route: IVP, Drug Form: INJ, Dosing Weight 188.636, kg, PRN, PRN Line Flush, Start date: 04/06/18 16:56:00 CDT, Duration: 30 day, Stop date: 05/06/18 16:55:00 CDT Notes: (Same as: BD Posiflush) Start Date: 04/06/18 Stop Date: 04/09/18 Status: DiscontinuedSaline Flush 0.9% 10 mL, Route: IVP, Drug Form: INJ, Dosing Weight 188.636, kg, PRN, PRN Line Flush, Start date: 04/06/18 12:01:00 CDT, Duration: 30 day, Stop date: 05/06/18 12:00:00 CDT Notes: (Same as: BD Posiflush) Start Date: 04/06/18 Stop Date: 04/09/18 Status: DiscontinuedSenokot S oral tablet 1 tab, Route: PO, Drug Form: TAB, Dosing Weight 184.091, kg, Bedtime, Start date : 04/07/18 22:00:00 CDT, Duration: 30 day, Stop date: 05/07/18 21:00:00 CDT Notes: (Same as Senokot-S) Equiv. to Sabiha-Colace. Start Date: 04/07/18 Stop Date: 04/09/18 Status: Discontinuedsertraline 150 mg, 3 tab, Route: PO, Drug form: TAB, Daily, Dosing Weight 184.091, kg, Start date: 04/08/18 9:00:00 CDT, Duration: 30 day, Stop date: 05/07/18 9:00:00 CDT Notes: (Same as: Zoloft) Start Date: 04/08/18 Stop Date: 04/09/18 Status: DiscontinuedSodium Chloride 0.9% IV 1,000 mL 1,000 mL, Rate: 150 ml/hr, Infuse over: 6.7 hr, Route: IV, Dosing Weight 184.091 kg, Total Volume: 1,000, Start date: 04/07/18 11:15:00 CDT, Duration: 30 day, Stop date: 05/07/18 11:14:00 CDT, 3.11, m2 Start Date: 04/07/18 Stop Date: 04/09/18 Status: DiscontinuedSodium Chloride 0.9% IV 1,000 mL 1,000 mL, Rate: 100 ml/hr, Infuse over: 10 hr, Route: IV, Dosing Weight 188.636 kg, Total Volume: 1,000, Start date: 04/06/18 16:56:00 CDT, Duration: 30 day, Stop date: 05/06/18 16:55:00 CDT, 3.15, m2 Start Date: 04/06/18 Stop Date: 04/07/18 Status: Discontinued Results ELECTROLYTES Most recent to oldest 1 2 3 [Reference Range]: Sodium Lvl [135-145 mEq/L] 136 mEq/L 136 mEq/L 136 mEq/L (04/09/18 5:52 AM) (04/08/18 6:25 AM) (04/07/18 5:52 AM) Potassium Lvl [3.5-5.1 mEq/L] 3.8 mEq/L 4.0 mEq/L 3.8 mEq/L (04/09/18 5:52 AM) (04/08/18 6:25 AM) (04/07/18 5:52 AM) Chloride Lvl [95-109 mEq/L] 102 mEq/L 102 mEq/L 101 mEq/L (04/09/18 5:52 AM) (04/08/18 6:25 AM) (04/07/18 5:52 AM) CO2 [24-32 mEq/L] 27 mEq/L 29 mEq/L 29 mEq/L (04/09/18 5:52 AM) (04/08/18 6:25 AM) (04/07/18 5:52 AM) AGAP [10.0-20.0 mEq/L] 10.8 mEq/L 9.0 mEq/L 9.8 mEq/L (04/09/18 5:52 AM) *LOW* *LOW* (04/08/18 6:25 AM) (04/07/18 5:52 AM) CHEM PANEL Most recent to oldest 1 2 3 [Reference Range]: Creatinine Lvl [0.50-1.40 0.63 mg/dL 0.57 mg/dL 0.59 mg/dL mg/dL] (04/09/18 5:52 AM) (04/08/18 6:25 AM) (04/07/18 5:52 AM) eGFR 122 mL/min/1.73m2 1 128 mL/min/1.73m2 2 126 mL/min/1.73m2 3 *NA* *NA* *NA* (04/09/18 5:52 AM) (04/08/18 6:25 AM) (04/07/18 5:52 AM) BUN [7-22 mg/dL] 10 mg/dL 10 mg/dL 12 mg/dL (04/09/18 5:52 AM) (04/08/18 6:25 AM) (04/07/18 5:52 AM) B/C Ratio [6-25] 16 18 20 (04/09/18 5:52 AM) (04/08/18 6:25 AM) (04/07/18 5:52 AM) Glucose Lvl [70-99 mg/dL] 116 mg/dL 143 mg/dL 122 mg/dL *HI* *HI* *HI* (04/09/18 5:52 AM) (04/08/18 6:25 AM) (04/07/18 5:52 AM) Total Protein [6.4-8.4 8.0 g/dL 7.9 g/dL 8.3 g/dL g/dL] (04/09/18 5:52 AM) (04/08/18 6:25 AM) (04/07/18 5:52 AM) Albumin Lvl [3.5-5.0 g/dL] 3.3 g/dL 3.2 g/dL 3.4 g/dL *LOW* *LOW* *LOW* (04/09/18 5:52 AM) (04/08/18 6:25 AM) (04/07/18 5:52 AM) Globulin [2.7-4.2 g/dL] 4.7 g/dL 4.7 g/dL 4.9 g/dL *HI* *HI* *HI* (04/09/18 5:52 AM) (04/08/18 6:25 AM) (04/07/18 5:52 AM) A/G Ratio [0.7-1.6] 0.7 0.7 0.7 (04/09/18 5:52 AM) (04/08/18 6:25 AM) (04/07/18 5:52 AM) Calcium Lvl [8.5-10.5 8.4 mg/dL 8.3 mg/dL 8.5 mg/dL mg/dL] *LOW* *LOW* (04/07/18 5:52 AM) (04/09/18 5:52 AM) (04/08/18 6:25 AM) ALT [0-65 unit/L] 71 unit/L 70 unit/L 71 unit/L *HI* *HI* *HI* (04/09/18 5:52 AM) (04/08/18 6:25 AM) (04/07/18 5:52 AM) AST [0-37 unit/L] 52 unit/L 49 unit/L 48 unit/L *HI* *HI* *HI* (04/09/18 5:52 AM) (04/08/18 6:25 AM) (04/07/18 5:52 AM) Alk Phos [39-136 unit/L] 82 unit/L 92 unit/L 98 unit/L (04/09/18 5:52 AM) (04/08/18 6:25 AM) (04/07/18 5:52 AM) Bili Total [0.2-1.3 mg/dL] 0.8 mg/dL 0.5 mg/dL 0.6 mg/dL (04/09/18 5:52 AM) (04/08/18 6:25 AM) (04/07/18 5:52 AM) Lipase Lvl [73-393 unit/L] 147 unit/L (04/06/18 12:26 PM) 1Result Comment: The eGFR is calculated using [...] eGFR should be multiplied by the estimated BMI.CARDIAC ENZYMES Most recent to oldest [Reference Range]: 1 2 3 BNP [<=100 pg/mL] 62 pg/mL (04/08/18 6:25 AM) SPECIAL CHEMISTRY Most recent to oldest [Reference Range]: 1 2 3 Hgb A1C [<=5.6 %] 6.9 % *HI* (04/09/18 5:52 AM) ANEMIA STUDY Most recent to oldest [Reference Range]: 1 2 3 Iron [45-160 ug/dl] 73 ug/dl (04/08/18 6:25 AM) Ferritin Lvl [22-275 ng/mL] 224 ng/mL (04/08/18 6:25 AM) % [place] [12-57 %] 24 % (04/08/18 6:25 AM) UIBC [110-370 ug/dl] 226 ug/dl (04/08/18 6:25 AM) TIBC [228-428 ug/dl] 299 ug/dl (04/08/18 6:25 AM) URINE AND STOOL Most recent to oldest [Reference Range]: 1 2 3 UA Turbidity [Clear] Marked *ABN* (04/06/18 12:58 PM) UA Color [Yellow] Yellow *NA* (04/06/18 12:58 PM) UA pH [5.0-8.0] 7.0 (04/06/18 12:58 PM) UA Spec Grav [<=1.030] 1.023 (04/06/18 12:58 PM) UA Glucose [Negative mg/dL] Negative mg/dL *NA* (04/06/18 12:58 PM) UA Blood [Negative] Negative (04/06/18 12:58 PM) UA Ketones [Negative mg/dL] Negative mg/dL *NA* (04/06/18 12:58 PM) UA Protein [Negative mg/dL] Negative mg/dL (04/06/18 12:58 PM) UA Urobilinogen [0.1-1.0 mg/dL] 2.0 mg/dL *HI* (04/06/18 12:58 PM) UA Bili [Negative] Negative *NA* (04/06/18 12:58 PM) UA Leuk Est [Negative] Negative (04/06/18 12:58 PM) UA Nitrite [Negative] Negative (04/06/18 12:58 PM) UA Sq Epi None Seen *NA* (04/06/18 12:58 PM) UA Amorph Annalisa [None Seen /HPF] Few /HPF *NA* (04/06/18 12:58 PM) IMMUNOLOGY Most recent to oldest [Reference Range]: 1 2 3 IVY [Negative] Negative 1 (04/08/18 6:25 AM) AMA Ab Scr [Negative] Negative (04/08/18 6:25 AM) SMA Screen [Negative] Negative (04/08/18 6:25 AM) Ceruloplasmin [20-60 mg/dL] 27 mg/dL (04/08/18 6:25 AM) A-1-AT (Sendout) [90-200 mg/dL] 107 mg/dL *NA* (04/08/18 6:25 AM) A-1-AT Pheno MZ 2 *NA* (04/08/18 6:25 AM) LKM [0.0-20.0 Units] 2.3 Units 3 *NA* (04/08/18 6:25 AM) Hep Bs Ag [Negative] Negative Negative *NA* *NA* (04/08/18 6:25 AM) (04/07/18 5:52 AM) Hep B Core IgM [Negative] Negative Negative *NA* *NA* (04/08/18 6:25 AM) (04/07/18 5:52 AM) Hep A IgM [Negative] Negative Negative *NA* *NA* (04/08/18 6:25 AM) (04/07/18 5:52 AM) Hep C Ab Negative Negative *NA* *NA* (04/08/18 6:25 AM) (04/07/18 5:52 AM) 1Result Comment: Because the IVY was Negative, the Reflex assays for Anti-dsDNA , SM/[employer], and [place] (SSA/SSB) were not performed.2Result Comment: Phenotype Population A-1-AT Concentration Incidence % Reference Interval MM 86.5% 96 - 189 MS 8.0% 83 - 161 MZ 3.9% 60 - 111 FM 0.4% 93 - 191 SZ 0.3% 42 - 75 SS 0.1% 62 - 119 ZZ 0.05% 16 - 38 FS 0.05% 70 - 128 FZ Unknown 44 - 88 FF Unknown Unknown Performed At: [address] [id number] Sandra Springer MD Ph:[phone] Performed At: [facility] [address] [facility] [address] [place], [place] [id number] Sammy ALARCON MD Ph:[phone] Comment: Negative 0.0 - 20.0 Equivocal 20.1 - 24.9 Positive >24.9 LKM type 1 antibodies are detected in patients with autoimmune hepatitis type 2 and in up to 8% of patients with chronic HCV infection. Performed At: [address] [id number] Sandra Springer MD Ph:[phone] Most recent to oldest 1 2 3 [Reference Range]: WBC [3.7-10.4 K/CMM] 6.1 K/CMM 7.1 K/CMM 5.4 K/CMM (04/09/18 5:52 AM) (04/07/18 5:52 AM) (04/06/18 12:26 PM) RBC [4.70-6.10 M/CMM] 4.06 M/CMM 4.16 M/CMM 4.18 M/CMM *LOW* *LOW* *LOW* (04/09/18 5:52 AM) (04/07/18 5:52 AM) (04/06/18 12:26 PM) Hgb [14.0-18.0 g/dL] 12.5 g/dL 12.9 g/dL 12.7 g/dL *LOW* *LOW* *LOW* (04/09/18 5:52 AM) (04/07/18 5:52 AM) (04/06/18 12:26 PM) Hct [42.0-54.0 %] 37.1 % 37.6 % 37.6 % *LOW* *LOW* *LOW* (04/09/18 5:52 AM) (04/07/18 5:52 AM) (04/06/18 12:26 PM) MCV [80.0-94.0 fL] 91.2 fL 90.4 fL 90.0 fL (04/09/18 5:52 AM) (04/07/18 5:52 AM) (04/06/18 12:26 PM) MCH [27.0-31.0 pg] 30.8 pg 30.9 pg 30.4 pg (04/09/18 5:52 AM) (04/07/18 5:52 AM) (04/06/18 12:26 PM) MCHC [32.0-36.0 g/dL] 33.8 g/dL 34.2 g/dL 33.8 g/dL (04/09/18 5:52 AM) (04/07/18 5:52 AM) (04/06/18 12:26 PM) RDW [11.5-14.5 %] 14.2 % 14.0 % 13.8 % (04/09/18 5:52 AM) (04/07/18 5:52 AM) (04/06/18 12:26 PM) MPV [7.4-10.4 fL] 10.1 fL 10.3 fL 9.9 fL (04/09/18 5:52 AM) (04/07/18 5:52 AM) (04/06/18 12:26 PM) Platelet [133-450 K/CMM] 155 K/CMM 178 K/CMM 167 K/CMM (04/09/18 5:52 AM) (04/07/18 5:52 AM) (04/06/18 12:26 PM) Segs [45.0-75.0 %] 56.3 % 53.8 % 62.3 % (04/09/18 5:52 AM) (04/07/18 5:52 AM) (04/06/18 12:26 PM) Lymphocytes [20.0-40.0 %] 33.5 % 36.0 % 28.4 % (04/09/18 5:52 AM) (04/07/18 5:52 AM) (04/06/18 12:26 PM) Monocytes [2.0-12.0 %] 6.9 % 7.2 % 6.0 % (04/09/18 5:52 AM) (04/07/18 5:52 AM) (04/06/18 12:26 PM) Eosinophils [0.0-4.0 %] 2.7 % 2.6 % 2.2 % (04/09/18 5:52 AM) (04/07/18 5:52 AM) (04/06/18 12:26 PM) Basophils [0.0-1.0 %] 0.6 % 0.4 % 1.1 % (04/09/18 5:52 AM) (04/07/18 5:52 AM) *HI* (04/06/18 12:26 PM) Neutrophils # [1.5-8.1 3.4 K/CMM 3.8 K/CMM 3.4 K/CMM K/CMM] (04/09/18 5:52 AM) (04/07/18 5:52 AM) (04/06/18 12:26 PM) Lymphocytes # [1.0-5.5 2.0 K/CMM 2.6 K/CMM 1.5 K/CMM K/CMM] (04/09/18 5:52 AM) (04/07/18 5:52 AM) (04/06/18 12:26 PM) Monocytes # [0.0-0.8 K/CMM] 0.4 K/CMM 0.5 K/CMM 0.3 K/CMM (04/09/18 5:52 AM) (04/07/18 5:52 AM) (04/06/18 12:26 PM) Eosinophils # [0.0-0.5 0.2 K/CMM 0.2 K/CMM 0.1 K/CMM K/CMM] (04/09/18 5:52 AM) (04/07/18 5:52 AM) (04/06/18 12:26 PM) Basophils # [0.0-0.2 K/CMM] 0.0 K/CMM 0.0 K/CMM 0.1 K/CMM (04/09/18 5:52 AM) (04/07/18 5:52 AM) (04/06/18 12:26 PM) PT [12.0-14.7 seconds] 14.9 seconds 14.6 seconds *HI* (04/06/18 12:26 PM) (04/08/18 6:25 AM) INR [0.85-1.17] 1.16 1.14 (04/08/18 6:25 AM) (04/06/18 12:26 PM) PTT [22.9-35.8 seconds] 34.7 seconds (04/06/18 12:26 PM) TUMOR MARKERS Most recent to oldest [Reference Range]: 1 2 3 AFP TM [0.0-11.0 ng/mL] 4.7 ng/mL (04/08/18 6:25 AM) Immunizations No data available for this section Procedures No data available for this section Social History Social History Type Response Alcohol Past Smoking Status Current some day smoker; Exposure to Tobacco Smoke None; Cigarette Smoking Last 365 Days Yes; Reg Smoking Cessation Counseling Yes entered on: 04/25/18 Assessment and Plan Extracted from: Title: Progress Note Author: Brannon Yancy Montenegro Date: 04/09/18 GENERAL SURGERY PROGRESS NOTE SUBJECTIVE: [...] with me in clinic next week. Extracted from: Title: Discharge Summary * Author: Jonatan Davis DO [...] expected. Education and Follow-up Counseled: patient. Extracted from: Title: History and Physical Author: Roberta Webb MD Date: 04/06/18 [id number] 1. Acute abdominal pain, etiology unclear. HIDA scan significant for biliary dyskinesia. Discussedplan of care with gastroenterology. Will proceed with surgical evaluationfor possiblelapar oscopic cholecystectomy. Continue supportive care and pain control 2.History [...]
--- OUTSIDE RECORDS SUMMARY | 2019-04-13 21:59 | XMS REPORT ---
:1975 Author Organization [facility] Address [address] [place] [address] Care Team Providers Name Role Phone Unavailable Unavailable Unavailable Problems This patient has no known problems. Allergies, Adverse Reactions, Alerts This patient has no known allergies or adverse reactions. Medications This patient has no known medications. Encounters Start End Encounter Admission Attending Care Care Encounter Date/Time Date/Time Type Type Clinicians Facility Department ID 2018-04-25 Inpatient E [facility] [id number] 10:46:00 2018-04-06 Inpatient E [facility] [id number] 13:59:00
--- OUTSIDE RECORDS SUMMARY | 2019-04-13 21:59 | XMS REPORT | Summary of Care ---
:1975 Author Name Maite Flores M.A. Address [facility] Unavailable , Care Team Providers Name Role Phone LIBORIO NOLASCO D.O. Unavailable Unavailable ELENI TAYLOR MD Unavailable Unavailable Functional Status Name Dates Details Functional status health issues are not documented Status: Name Dates Details Cognitive status health issues are not documented Status: Problems Name Dates Details Knee pain, left (719.46, M25.562) Status: Active Type 2 diabetes mellitus (250.00, E11.9) Status: Active Chronic left-sided low back pain with left-sided sciatica (724.2, M54.42) Status: Active Obesity (278.00, E66.9) Status: Active Medications Name Dates Details Hydrocodone-Acetaminophen 10-325 MG Oral Tablet Refills: 0 Active Gabapentin 100 MG Oral Capsule Refills: 0 Active Cyclobenzaprine HCl - 10 MG Oral Tablet Refills: 0 Active Sertraline HCl - 100 MG Oral Tablet Refills: 0 Active MetFORMIN HCl TABS Refills: 0 Active Allergies and Adverse Reactions Name Dates Details aspirin (Allergy) Status: Active ibuprofen (Allergy) Reaction: Swelling Status: Active Past Medical History Name Dates Details History of Back pain (724.5, M54.9) Status: Resolved History of Depression (311, F32.9) Status: Resolved History of Diabetes mellitus, type 2 (250.00, E11.9) Status: Resolved History of Pancreatitis (577.0, K85.90) Status: Resolved Procedures Procedure Dates Details Procedures not documented Immunization Name Dates Details Immunizations not documented Family History Name Dates Details Family history of diabetes mellitus (V18.0, Z83.3) Status: Active Name Dates Details Family history of diabetes mellitus (V18.0, Z83.3) Status: Active Social History Name Dates Details - Status: Name Dates Details Never smoker Never smoker Vital Signs Date Test Result Details [id number] BP Systolic 122 mm[Hg] Status: BP Diastolic 59 mm[Hg] Status: Height 72 in Status: Weight 402.4 lb Status: Body Mass Index Calculated 54.58 kg/m2 Status: Body Surface Area Calculated 2.87 m2 Status: Temperature 97.3 f Status: Heart Rate 86 /min Status: [id number] BP Systolic 133 mm[Hg] Status: BP Diastolic 74 mm[Hg] Status: Height 72 in Status: Weight 407 lb Status: Body Mass Index Calculated 55.2 kg/m2 Status: Body Surface Area Calculated 2.88 m2 Status: Temperature 96.9 f Status: Heart Rate 70 /min Status: Results Date Description Value Details Results not documented Plan of Care Name Dates Details Planned Observations Planned Goals not documented Planned Encounters Appointment; LIBORIO NOLASCO D.O. On: 15-Jun-2018 9:30 Instructions Name Dates Details Instructions not documented Encounters Appointment; RAMSEY FRITZ M.D. On: 04-Dec-2017 10:00 Encounter Diagnosis: Problem not documented Appointment; LIBORIO NOLASCO D.O. On: 17-Apr-2018 10:00 Encounter Diagnosis: Problem not documented Appointment; AURELIO ROGER M.D. On: 07-May-2018 13:00 Encounter Diagnosis: Problem not documented Appointment; LIBORIO NOLASCO D.O. On: 11-May-2018 11:15 Encounter Diagnosis: Problem not documented
[2019-04-13 22:25] LABS: Absolute Lymphocytes (CBC) 2.1 K/uL (0.7-4.9); Basophils % 0.4 % (0-1.3); Hematocrit 39.3 % (39.6-49.0); Lymphocytes % 32.8 % (15.3-44.8); MPV 10.3 fL (7.6-11.3); RBC Red Blood Cell Count 4.45 M/uL (4.33-5.43)
[2019-04-13 22:27] LABS: Protime INR 1.13
[2019-04-13] MEDS ORDERED: FENTANYL CITR 100 MCG/2 ML ONE (22:29)
[2019-04-13 22:48] LABS: ALT/SGPT 67 U/L (12-78); AST/SGOT 43 U/L (15-37); Albumin 3.6 g/dL (3.4-5.0); Alkaline Phosphatase 81 U/L (45-117); BUN Blood Urea Nitrogen 11 mg/dL (7-18); Bicarbonate 27 mmol/L (21-32); Bilirubin Direct 0.2 mg/dL (0-0.2); Bilirubin Total 0.5 mg/dL (0.2-1.0); Glucose Level 95 mg/dL (74-106); Lipase 210 U/L (73-393); Magnesium 1.8 mg/dL (1.8-2.4); NT PRO-BNP 33 pg/mL (<125); Potassium 4.1 mmol/L (3.5-5.1); Protein, Total 8.3 g/dL (6.4-8.2); Sodium Level 140 mmol/L (136-145); Troponin (Emerg Dept Use Only) < 0.02 ng/mL (0.0-0.045)
[2019-04-13] MEDS ORDERED: HYDROMORPHONE HCL 1 MG/ML INJ ONE (23:46)
--- NOTE | 2019-04-14 00:26 | ER ---
Nurse's Notes [facility] Name: Cesar Busby Age: 43 yrs Sex: Male : 1975 Arrival Date: 04/13/2019 Time: 21:52 Bed 17 Private MD: Diagnosis: Chest pain, unspecified Presentation: 04/13 22:03 Presenting complaint: Patient states: lower back pain and chest pain that has been for lp1 about 4 weeks, states tonight pain worsened; Patient restless during triage; States prescribed Cyclobenzaprine about a month ago with no relief; States "My chest feels like it's numb". Transition of care: patient was not received from another setting of care. Onset of symptoms was April 13, 2019. Risk Assessment: Do you want to hurt yourself or someone else? Patient reports no desire to harm self or others. Initial Sepsis Screen: Does the patient meet any 2 criteria? No. Patient's initial sepsis screen is negative. Does the patient have a suspected source of infection? No. Patient's initial sepsis screen is negative. Care prior to arrival: None. 22:03 Method Of Arrival: Wheelchair lp1 22:03 Acuity: ALLY 3 lp1 Triage Assessment: 22:21 General: Appears in no apparent distress. comfortable, Behavior is calm, cooperative, ao appropriate for age. Pain: Complains of pain in epigastric area. EENT: No signs and/or symptoms were reported regarding the EENT system. Neuro: Level of Consciousness is awake, alert, obeys commands, Oriented to person, place, time, situation, Appropriate for age Moves all extremities. Full function Speech is normal. Cardiovascular: Heart tones S1 S2 Capillary refill < 3 seconds Patient's skin is warm and dry. Respiratory: Airway is patent Respiratory effort is even, unlabored, Respiratory pattern is regular, symmetrical. GI: No signs and/or symptoms were reported involving the gastrointestinal system. : No signs and/or symptoms were reported regarding the genitourinary system. Derm: Skin is intact, Skin is pink, warm \\T\\ dry. normal, Skin temperature is warm. Musculoskeletal: Circulation, motion, and sensation intact. Range of motion: intact in all extremities. Historical: - Allergies: 22:08 Aspirin; lp1 - Home Meds: 22:08 [place] 10-325 mg Oral tab 1 tab every 6 hours [Active]; metformin 1,000 mg Oral tab 1 lp1 tab 2 times per day [Active]; gabapentin 600 mg Oral tab 1 tab 3 times per day [Active]; cyclobenzaprine 10 mg Oral tab 1 tab 2 times per day [Active]; sertraline 100 mg Oral tab 1 tab BID [Active]; hydrochlorothiazide 25 mg Oral tab 1 tab once daily [Active]; - PMHx: 22:08 Bipolar disorder; Diabetes - IDDM; Cirrhosis; Sleep Apnea; lp1 - PSHx: 22:08 Cholecystectomy; lp1 - Immunization history:: Adult Immunizations up to date. - Social history:: Smoking status: Patient uses tobacco products, denies chronic smoking, but will smoke occasionally. - Ebola Screening: : No symptoms or risks identified at this time. Screenin:21 Abuse screen: Denies threats or abuse. Denies injuries from another. Nutritional ao screening: No deficits noted. Tuberculosis screening: No symptoms or risk factors identified. Fall Risk None identified. Assessment: 22:23 General: See triage assessment for full assessment. Pain: Pain does not radiate. Pain ao began month ago. 23:29 Reassessment: Patient appears in no apparent distress at this time. Patient and/or ao family updated on plan of care and expected duration. Pain level reassessed. Patient is alert, oriented x 3, equal unlabored respirations, skin warm/dry/pink. Waitng on CT report. Dr Vyas notified patient is in pain and requesting pain medication. 23:57 Reassessment: Pt pulled IV and was just about to leave. Patient was notified that pain ao medication was ordered and decided to stay. New IV was done on the right AC. 04/14 00:46 Reassessment: Patient appears in no apparent distress at this time. DC instructions ao given to patient. Patient agree to follow up. Vital Signs: 04/13 22:04 BP 124 / 87; Pulse 75; Resp 18; Temp 98.1(O); Pulse Ox 97% on R/A; Weight 172.37 kg; lp1 Height 6 ft. 0 in. (182.88 cm); Pain 8/10; 23:29 BP 110 / 66; Pulse 81; Resp 19; Pulse Ox 99% on R/A; Pain 0/10; ao 04/14 00:48 BP 128 / 83; Pulse 78; Resp 18; Pulse Ox 98% ; ao 04/13 22:04 Body Mass Index 51.54 (172.37 kg, 182.88 cm) lp1 ED Course: 04/13 21:52 Patient arrived in ED. mr 22:00 Thomas Jacobs, RN is Primary Nurse. ao 22:04 Triage completed. lp1 22:04 Arm band placed on left wrist. lp1 22:06 Christian Vyas MD is Attending Physician. gs 22:22 Patient has correct armband on for positive identification. teletypesetter monitor on. Pulse ao ox on. NIBP on. 22:24 Patient maintains SpO2 saturation greater than 95% on room air. ao 22:24 Inserted saline lock: 20 gauge in right antecubital area, using aseptic technique. ao ,using aseptic technique. [facility] Blood collected. 22:29 XRAY Chest (1 view) In Process Unspecified. EDMS 22:29 X-ray completed. Portable x-ray completed in exam room. Patient tolerated procedure mh1 well. 22:29 Radiology exam delayed due to lab results not completed at this time. (BUN/Creatinine). kw1 23:[address] via wheelchair. ao 23:29 Patient moved back from CT. ao 23:41 CT Chest, Abdomen, Pelvis - W/Contrast In Process Unspecified. EDMS 23:58 Inserted saline lock: 20 gauge in left antecubital area, using aseptic technique. ao 04/14 00:22 Cali Miguel MD is Referral Physician. gs 00:47 No provider procedures requiring assistance completed. IV discontinued, intact, ao bleeding controlled, No redness/swelling at site. Pressure dressing applied. Administered Medications: 04/13 22:32 Drug: fentaNYL (PF) 50 mcg {Note: Rass 0.} Route: IVP; Site: left antecubital; ao 23:00 Follow up: Response: No adverse reaction; Pain is unchanged, physician notified; RASS: ao Alert and Calm (0) 23:56 Drug: Dilaudid 1 mg Route: IVP; Site: right antecubital; ao 04/14 00:55 Follow up: Response: No adverse reaction; Temperature is decreased; RASS: Alert and ao Calm (0) Outcome: 00:22 Discharge ordered by . gs 00:47 Discharged to home ambulatory. ao 00:47 Condition: stable 00:47 Discharge instructions given to patient, Instructed on discharge instructions, follow up and referral plans. Demonstrated understanding of instructions, follow-up care, medications. 00:48 Patient left the ED. ao Signatures: Dispatcher [employer] Hamida Brantley Martha 1 Maribel Tanner, AKUA RN lp1 Thomas Jacobs RN RN ao Christian Vyas MD MD Sheyla Marshall kw1 Corrections: (The following items were deleted from the chart) 04/13 22:08 22:04 BP 124 / 87; Pulse 75bpm; Resp 18bpm; Pulse Ox 97% RA; 172.37 kg; Height 6 ft. 0 lp1 in.; BMI: 51.5; Pain 8/10; lp1
--- NOTE | 2019-04-14 00:28 | EDPHYS ---
Physician Documentation [facility] Name: Cesar Busby Age: 43 yrs Sex: Male : 1975 Arrival Date: 04/13/2019 Time: 21:52 Bed 17 Private MD: ED Physician Christian Vyas HPI: 04/14 00:16 This 43 yrs old Male presents to ER via Wheelchair with complaints of Chest gs Pain, Back Pain. 00:16 The patient or guardian reports chest pain that is located primarily in the substernal gs area, epigastric area. Onset: 1 week(s) ago. The pain radiates to back. Associated signs and symptoms: Pertinent positives: abdominal pain, Pertinent negatives: cough, shortness of breath. The chest pain is described as a pressure, sharp. Duration: The patient or guardian reports a single episode, that is still ongoing. Modifying factors: The symptoms are alleviated by nothing. the symptoms are aggravated by nothing. Severity of pain: At its worst the pain was severe in the emergency department the pain is unchanged. The patient has experienced similar episodes in the past, a few times. Historical: - Allergies: 04/13 22:08 Aspirin; lp1 - Home Meds: 22:08 [place] 10-325 mg Oral tab 1 tab every 6 hours [Active]; metformin 1,000 mg Oral tab 1 lp1 tab 2 times per day [Active]; gabapentin 600 mg Oral tab 1 tab 3 times per day [Active]; cyclobenzaprine 10 mg Oral tab 1 tab 2 times per day [Active]; sertraline 100 mg Oral tab 1 tab BID [Active]; hydrochlorothiazide 25 mg Oral tab 1 tab once daily [Active]; - PMHx: 22:08 Bipolar disorder; Diabetes - IDDM; Cirrhosis; Sleep Apnea; lp1 - PSHx: 22:08 Cholecystectomy; lp1 - Immunization history:: Adult Immunizations up to date. - Social history:: Smoking status: Patient uses tobacco products, denies chronic smoking, but will smoke occasionally. - Ebola Screening: : No symptoms or risks identified at this time. ROS: 04/14 00:16 All other systems are negative. gs Exam: 00:16 Head/Face: Normocephalic, atraumatic. Eyes: Pupils equal round and reactive to light, gs extra-ocular motions intact. Lids and lashes normal. Conjunctiva and sclera are non-icteric and not injected. Cornea within normal limits. Periorbital areas with no swelling, redness, or edema. ENT: Nares patent. No nasal discharge, no septal abnormalities noted. Tympanic membranes are normal and external auditory canals are clear. Oropharynx with no redness, swelling, or masses, exudates, or evidence of obstruction, uvula midline. Mucous membranes moist. Neck: Trachea midline, no thyromegaly or masses palpated, and no cervical lymphadenopathy. Supple, full range of motion without nuchal rigidity, or vertebral point tenderness. No Meningismus. Chest/axilla: Normal chest wall appearance and motion. Nontender with no deformity. No lesions are appreciated. Cardiovascular: Regular rate and rhythm with a normal S1 and S2. No gallops, murmurs, or rubs. Normal PMI, no JVD. No pulse deficits. Respiratory: Lungs have equal breath sounds bilaterally, clear to auscultation and percussion. No rales, rhonchi or wheezes noted. No increased work of breathing, no retractions or nasal flaring. Skin: Warm, dry with normal turgor. Normal color with no rashes, no lesions, and no evidence of cellulitis. MS/ Extremity: Pulses equal, no cyanosis. Neurovascular intact. Full, normal range of motion. Neuro: Awake and alert, GCS 15, oriented to person, place, time, and situation. Cranial nerves II-XII grossly intact. Motor strength 5/5 in all extremities. Sensory grossly intact. Cerebellar exam normal. Normal gait. 00:16 Constitutional: The patient appears alert, awake, uncomfortable. 00:16 Abdomen/GI: Palpation: moderate abdominal tenderness, in the epigastric area. 00:16 ECG was reviewed by the Attending Physician. Vital Signs: 04/13 22:04 BP 124 / 87; Pulse 75; Resp 18; Temp 98.1(O); Pulse Ox 97% on R/A; Weight 172.37 kg; lp1 Height 6 ft. 0 in. (182.88 cm); Pain 8/10; 23:29 BP 110 / 66; Pulse 81; Resp 19; Pulse Ox 99% on R/A; Pain 0/10; ao 04/14 00:48 BP 128 / 83; Pulse 78; Resp 18; Pulse Ox 98% ; ao 04/13 22:04 Body Mass Index 51.54 (172.37 kg, 182.88 cm) lp1 MDM: 04/13 22:20 Patient medically screened. 04/14 00:16 Differential diagnosis: coronary artery disease chest wall pain, pancreatitis, peptic gs ulcer disease, thoracic aortic disection. Data reviewed: vital signs, nurses notes, lab test result(s), EKG, radiologic studies. Counseling: I had a detailed discussion with the patient and/or guardian regarding: the historical points, exam findings, and any diagnostic results supporting the discharge/admit diagnosis. Response to treatment: the patient's condition has returned to base line. 04/13 22:07 Order name: Basic Metabolic Panel; Complete Time: 23:09 04/13 22:07 Order name: CBC with Diff; Complete Time: 23:09 04/13 22:07 Order name: LFT's; Complete Time: 23:09 04/13 22:07 Order name: Magnesium; Complete Time: 23:09 04/13 22:07 Order name: NT PRO-BNP; Complete Time: 23:09 04/13 22:07 Order name: PT-INR; Complete Time: 23:09 04/13 22:07 Order name: Troponin (emerg Dept Use Only); Complete Time: 23:09 04/13 22:07 Order name: XRAY Chest (1 view) 04/13 22:07 Order name: EKG; Complete Time: 22:09 04/13 22:21 Order name: CT Chest, Abdomen, Pelvis - W/Contrast 04/13 22:26 Order name: Lipase; Complete Time: 23:09 EDMS 04/13 22:07 Order name: Cardiac monitoring; Complete Time: 22:20 04/13 22:07 Order name: EKG - Nurse/Tech; Complete Time: 22:20 04/13 22:07 Order name: IV Saline Lock; Complete Time: 22:20 04/13 22:07 Order name: Labs collected and sent; Complete Time: 22:20 04/13 22:07 Order name: O2 Per Protocol; Complete Time: 22:20 04/13 22:07 Order name: O2 Sat Monitoring; Complete Time: 22:21 gs EC:16 Rate is 66 beats/min. Rhythm is regular. WA interval is normal. QRS interval is gs prolonged. T waves are Normal. No ST changes noted. Clinical impression: NSR w/ Non-specific ST/T Changes, Abnormal EKG without significant change, and rbb. Interpreted by me. Administered Medications: 04/13 22:32 Drug: fentaNYL (PF) 50 mcg {Note: Rass 0.} Route: IVP; Site: left antecubital; ao 23:00 Follow up: Response: No adverse reaction; Pain is unchanged, physician notified; RASS: ao Alert and Calm (0) 23:56 Drug: Dilaudid 1 mg Route: IVP; Site: right antecubital; ao 04/14 00:55 Follow up: Response: No adverse reaction; Temperature is decreased; RASS: Alert and ao Calm (0) Disposition: 04/14/19 00:22 Discharged to Home. Impression: Chest pain, unspecified. - Condition is Stable. - Discharge Instructions: Nonspecific Chest Pain, Back Pain, Adult, Dpax-fc-[id number]. - Medication Reconciliation Form, Thank You Letter, Antibiotic Education, Prescription Opioid Use form. - Follow up: Private Physician; When: 2 - 3 days; Reason: Re-evaluation by your physician. Follow up: Cali Miguel MD; When: 2 - 3 days; Reason: Re-evaluation by your physician. Signatures: Dispatcher [employer] [facility] Maribel Tanner, RN RN lp1 Thomas Jacobs RN RN ao Christian Vyas MD MD gs Corrections: (The following items were deleted from the chart) 04/13 22:26 22:21 LIPASE+C.LAB.BRZ ordered. [facility] 04/14 00:48 00:22 04/14/2019 00:22 Discharged to Home. Impression: Chest pain, unspecified. ao Condition is Stable. Forms are Medication Reconciliation Form, Thank You Letter, Antibiotic Education, Prescription Opioid Use. Follow up: Private Physician; When: 2 - 3 days; Reason: Re-evaluation by your physician. Follow up: Cali Miguel; When: 2 - 3 days; Reason: Re-evaluation by your physician. gs
[2019-04-14 07:11] VITALS: TEMP 98.1
[2019-04-14 07:14] VITALS: BP 128/83; O2SAT 98
--- NOTE | 2019-04-14 09:32 | EKG ---
Test Date: 2019-04-13 Test Time: 22:06:54 3D Artist: SONNY MEASUREMENT RESULTS: Intervals: Rate: 66 [place]: 178 QRSD: 172 QT: 470 QTc: 492 [place]: P: 73 [place]: 178 QRS: 45 T: 14 INTERPRETIVE STATEMENTS: Normal sinus rhythm Right bundle branch block Possible Inferior infarct, age undetermined Abnormal ECG Compared to ECG 06/02/2010 15:55:57 Right bundle-branch block now present Intraventricular conduction delay no longer present Myocardial infarct finding still present Electronically Signed On 04-14-19 09:31:04 CDT by Cali Miguel
--- NOTE | 2019-04-14 12:36 | RAD REPORT ---
EXAM DESCRIPTION: RAD - Chest Single View - 04/13/2019 10:29 pm CLINICAL HISTORY: CHEST PAIN Chest pain. COMPARISON: CHEST SINGLE VIEW dated 06/02/2010 FINDINGS: Portable technique limits examination quality. The lungs are grossly clear. The heart is mildly prominent in size. No displaced fractures. IMPRESSION: Mild cardiomegaly.
--- NOTE | 2019-04-16 12:35 | RAD REPORT ---
EXAM DESCRIPTION: CT Chest Abdomen Pelvis W Cont CLINICAL HISTORY: 43 years Male Chest and low back pain TECHNIQUE: Contiguous axial images obtained through the chest, abdomen, and pelvis following IV cont rast. Coronal and sagittal reformatted images provided. This CT exam was performed according to our departmental dose-optimization program, which includes on e or more of the following dose reduction techniques: automated exposure control, adjustment of the m A and/or kV according to patient size, and/or use of iterative reconstruction technique. COMPARISON: No prior exams provided for comparison. FINDINGS: The lungs are clear without focal consolidation, pleural effusion, or pneumothorax. The ce ntral airways are patent. Mild cardiomegaly without pericardial effusion. No thoracic aortic aneurysm or dissection. Moderate hepatosplenomegaly with diffuse steatosis of the liver. Slightly lobulated hepatic contour r aises concern for early cirrhosis. No visualized focal hepatic lesion. Prior cholecystectomy without biliary dilatation. The pancreas, adrenal glands, kidneys, and urinary bladder are normal. There is sigmoid diverticulosis without diverticulitis, bowel inflammation, obstruction, free intrape ritoneal air, or ascites. The appendix is normal. No abdominal or pelvic lymphadenopathy. No acute osseous abnormality in the chest, abdomen, or pelvis . Mild chronic degenerative changes throughout the spine and at both hips. IMPRESSION: No acute findings in the chest. Mild cardiomegaly. Moderate hepatosplenomegaly with steatosis of the liver. Possible early cirrhosis, correlate with LFT s. Sigmoid diverticulosis without diverticulitis. No bowel inflammation or obstruction. Electronically signed by: Justa Marks MD 04/14/2019 12:01 AM CDT Due to temporary technical issues with the PACS/Fluency reporting system, reports are being signed by the in house radiologist as a courtesy to ensure prompt reporting. The interpreting radiologist is f ully responsible for the content of the report.
== END 2019-04-14 00:48 | disposition home or self-care (01) ==
LOC: ER 21:51
DX: R07.9 Chest pain, unspecified (principal); E11.9 Type 2 diabetes mellitus without complications; F31.9 Bipolar disorder, unspecified; Z72.0 Tobacco use; Z88.6 Allergy status to analgesic agent
CPT/HCPCS: 93005; 85025; 80048; 36415; 83735; 85610; 80076; 84484; 83690; 83880; 71260; 74177; 71045; 99285; Q9967; J3010; J1170